=== PATIENT | male | born 1980 | race African-American/Black ===

== ENCOUNTER 2018-03-20 18:20 | Emergency (ER) | payer MEDICARE, MEDICAID, SELFPAY ==
[2018-03-20 18:21] VITALS: BP 109/70; PULSE 87; RESP 16; TEMP 36.3; O2SAT 100; BMI 25.0
[2018-03-20] MEDS: 0.9% Normal Saline 1,000 ML 999 ML IV (18:42)
[2018-03-20] MEDS: DiphenhydrAMINE 50 MG/ML Syringe 25 MG IV (18:42)
[2018-03-20] MEDS: proCHLORPERazine 10 MG/2 ML Vial IV (18:42)
[2018-03-20] MEDS: Ketorolac 30 MG/ML Syringe IV (18:42)
--- NOTE | 2018-03-20 19:53 | ED.DCSUM_ITS ---
- ER Visit Summary Date of Service: 03/20/18 Chief Complaint: Migraine headache History of Present Illness: The patient is a 37 M presenting for evaluation secondary to headache. Patient states that he has been having a significant amount of increased stress recently. Patient states that he has stress induced migraines. Patient reports that around noon he had a gradual onset of a migraine headache. He describes this as a generalized throbbing seems to be worse with exposure to light and sound and has been associated with an aura and nausea and vomiting. Patient denies any head trauma. Denies any recent fevers neck stiffness or skin rashes. Review of systems otherwise negative. Physical Examination: Vital signs: Within normal limits General: Well-nourished well-developed no acute distress Head: Normocephalic atraumatic, no temporal artery tenderness or vesicular rash noted. No sinus tenderness to percussion. Eyes: PERRLA, EOMI. Direct funduscopy limited secondary to photophobia Neck: Supple, no lymphadenopathy, no JVD no meningismus. Negative Brudzinski, Kernig, jolt, and heel strike Cardiovascular: Heart regular rate and rhythm no murmurs Respiratory: Lung sounds clear to auscultation bilaterally no respiratory distress Abdomen: Soft, nontender Extremities: Nontender, no edema Skin: Normal color, no rash, no evidence of petechia Neuro: Alert and oriented ?4, cranial nerves II through XII intact, normal strength, sensation Test Results: None indicated Emergency Department Course and Treatment: Patient presented for evaluation secondary to headache. He has no symptoms that would be concerning for infection, meningitis, subarachnoid hemorrhage, or other significant etiology that would require workup. Patient was treated with Benadryl Compazine and Toradol repeat evaluation in 1950 showed resolution. I believe he safely can be discharged. Disposition: Discharge Impression: 1. Migraine headache without status migrainosus, with aura, not intractable This note was generated with [employer] dictation software. It may contain incorrect words, spelling, and punctuation that were not noted in review of the chart prior to signing ED Disposition - Plan for ED Patient: Disposition: Home or Assisted Living Chief Complaint: Headache Diagnosis: Migraine Instructions: ED Headache Migraine Additional Instructions: Follow-up with your primary care physician
[2018-03-20 20:06] VITALS: BP 110/80; PULSE 81; RESP 18; O2SAT 98
== END 2018-03-20 20:07 | disposition home or self-care (01) ==
PROVIDERS: Emergency Provider Emergency Medicine
DX: G43.109 Migraine with aura, not intractable, without status migrainosus (principal)
CPT/HCPCS: 96361; 96374; 96375; 99283; J7030

== ENCOUNTER 2018-11-04 20:11 | Emergency (ER) | payer SELFPAY ==
[2018-09-08 08:44] VITALS: BMI 23.8
[2018-11-04 20:12] VITALS: BP 117/98; PULSE 102; RESP 19; TEMP 36.2; O2SAT 100; BMI 21.5
[2018-11-04] MEDS: 0.9% Normal Saline 1,000 ML 999 ML IV (21:58)
[2018-11-04] MEDS: Metoclopramide 10 MG/2 ML Vial IV (21:59)
[2018-11-04] MEDS: Ketorolac 30 MG/ML Syringe IV (21:59)
[2018-11-04] MEDS: DiphenhydrAMINE 50 MG/ML Syringe 25 MG IV (21:59)
--- NOTE | 2018-11-05 00:05 | ED.VISSUMM ---
- ER Visit Summary Date of Service: 11/05/18 Chief Complaint: [] History of Present Illness: The patient is a 37 M [] Physical Examination: [] Test Results: [] Emergency Department Course and Treatment: [] Treatment Plan: [] Disposition: [] Impression: [] This note was generated with [employer] dictation software. It may contain incorrect words, spelling, and punctuation that were not noted in review of the chart prior to signing ED Disposition - Plan for ED Patient: Instructions: ED Headache Migraine Referrals: Jenn Vincent MD [Primary Care Provider] -
[2018-11-05 00:06] VITALS: BP 136/82; PULSE 88; PULSE 89; RESP 16; O2SAT 100; O2SAT 98
== END 2018-11-05 00:17 | disposition home or self-care (01) ==
PROVIDERS: Emergency Provider Emergency Medicine; Family Provider Internal Medicine; PCP Internal Medicine
DX: G43.909 Migraine, unspecified, not intractable, without status migrainosus (principal)
CPT/HCPCS: 96361; 96374; 96375; 99283; J7030; A4216

== ENCOUNTER 2020-06-23 19:37 | Emergency (ER) | payer MEDICARE, MEDICAID, SELFPAY ==
[2020-06-23 19:38] VITALS: BP 110/83; PULSE 99; RESP 17; TEMP 38.8; O2SAT 100; BMI 22.3
[2020-06-23 21:00] VITALS: BP 120/77; PULSE 82; RESP 18; TEMP 38.3; O2SAT 98
[2020-06-23 22:00] VITALS: BP 119/77; PULSE 83; RESP 17; TEMP 38.2; O2SAT 98
--- NOTE | 2020-06-23 22:06 | EKG12_ITS ---
Test Reason : FEVER Blood Pressure : / mmHG Vent. Rate : 079 BPM Atrial Rate : 079 BPM P-R Int : 154 ms QRS Dur : 104 ms QT Int : 368 ms P-R-T Axes : 035 023 023 degrees QTc Int : 421 ms Normal sinus rhythm Normal ECG Confirmed by LEILA GREEN, MISTY ([id number]), scientific editor BLANK VITALE ([id number]) on 07/07/2020 9:38:53 A M Referred By: BALJIT Confirmed By:JANIE DEE MD
[2020-06-23] MEDS: 0.9% Normal Saline 1,000 ML 1000 ML IV (22:09)
[2020-06-23 22:27] LABS: Absolute Lymphocyte Count 0.53 X10^3/uL (0.83-4.51); Absolute Neutrophil Count 3.7 X10^3/uL (2.0-7.7); Basophil# 0.03 X10^3/uL; Basophil% 0.6 % (0-1); Eosinophil# 0.13 X10^3/uL; Eosinophils% 2.6 % (0-5); Hematocrit 46.2 % (40-54); Hemoglobin 15.4 g/dL (13.0-16.5); Lymphocyte # 0.53 X10^3/ul (4.0); Lymphocyte % 10.7 % (19-41); Mean Corp Hgb Conc 33.3 g/dL (32-36); Mean Corpuscular Hgb 32.4 pg (27.0-32.0); Mean Corpuscular Volume 97.3 fL (80-94); Mean Platelet Vol. 10.4 fl (6.2-12.0); Monocyte# 0.57 X10^3/uL; Monocyte% 11.5 % (0-10); NRBC Flagged by Analyzer 0 % (0-5); Neutrophil # 3.69 X10^3/uL (2.7-7.7); Neutrophil % 74.4 % (47-70); POSITIVE DIFFERENTIAL YES; Platelet Count 180 K/mm3 (150-450); RBC Distribution Width CV 12.7 % (11.6-14.6); RBC Distribution Width SD 45.4 fl (35.1-43.9); Red Blood Count 4.75 M/mm3 (4.6-6.2)
[2020-06-23 22:33] LABS: Differential Indicated SCAN CRITERIA MET
--- NOTE | 2020-06-23 22:37 | RAD_ITS ---
STUDY: X-RAY CHEST REASON FOR EXAM: Male, 39 years old. COUGH,SOB, FEVER, CHILLS, NAUSEA TECHNIQUE: 1 view COMPARISON: Prior chest radiograph 05/08/2017 FINDINGS: The lungs are clear and expanded. There is no demonstrated pleural abnormality. Normal size heart. Normal mediastinum and raffaele. Normal visualized pulmonary arteries. Normal visualized aortic arch and descending thoracic aorta. Normal visualized thoracic spine. Normal visualized ribs, clavicles, and shoulders. Increased colonic bowel gas in the [id number]. RAD/Chest 1 View (Portable) IMPRESSION: Normal x-ray examination of the chest. Increased colonic bowel gas in the [id number]. Electronically Signed: Michelle Peralta MD at 22:49 EDT , Service support ,
[2020-06-23 22:43] LABS: ALB/GLOB Ratio 1.3 RATIO (0.9-2.4); AST(SGOT) 16 U/L (15-37); Alanine Aminotransfer ALT/SGPT 18 U/L (16-61); Albumin, Serum 4.1 g/dL (3.2-5.0); Alkaline Phosphatase 48 U/L (45-117); Anion Gap 5 (5-15); BUN 12 mg/dL (7-18); BUN/Creat Ratio 11.2 RATIO (10-20); Calcium,Total 8.7 mg/dL (8.5-10.1); Chloride 108 mmol/L (98-107); Creatinine, Serum 1.07 mg/dL (0.70-1.30); EST Glomerular Filtration Rate 81 mL/min (>60); Est Glom Filt Rate - Afr Amer 98 mL/min (>60); Estimated Creatinine Clearance 88.15 ml/min; Globulin 3.1 g/dL (2.2-4.2); Glucose 90 mg/dL (74-106); Protein, Total 7.2 g/dL (6.4-8.2); Sodium Level 142 mmol/L (136-145)
[2020-06-23 22:46] LABS: CPK Total, Creatine Kinase 122 U/L (39-308)
[2020-06-23 22:50] LABS: Bacteria 0 SEEN /hpf (None Seen); Mucous, Urine 0 SEEN /hpf (<or=2+); Red Blood Cells-Urine 0 SEEN /hpf (0-5)
[2020-06-23 22:53] LABS: Color, Urine Yellow (Yellow); Glucose, Dipstick Normal (Normal); Leukocyte Esterase-Dipstick Negative /ul (Negative); Nitrite-Dipstick Negative (Negative); Occult Blood-Urine Negative /ul (Negative); Protein-Dipstick 30 mg/dl (Negative); Specific Gravity, Urine 1.015 (1.002-1.030); Urine Bilirubin Dipstick Negative (Negative); Urine Clarity Sl. Cloudy (Clear); Urine Urobilinogen 1 mg/dl (Normal)
[2020-06-23 22:55] LABS: Ketone-Dipstick 150 mg/dl (Negative)
[2020-06-23 22:59] LABS: Squamous Epithelial Cells - UA 0-5 SEEN /hpf (0-5); White Blood Cells 0-5 SEEN /hpf (0-5)
[2020-06-23 23:00] VITALS: BP 111/73; PULSE 81; PULSE 84; RESP 15; RESP 17; TEMP 37.9; O2SAT 99
[2020-06-23 23:52] LABS: Differential Comment SCANNED
[2020-06-24] VITALS: BP 116/79; PULSE 78; RESP 24; TEMP 37.7; O2SAT 97
[2020-06-24 00:48] VITALS: BP 118/77; PULSE 83; RESP 20; O2SAT 98
--- NOTE | 2020-06-24 00:51 | ED.VIS.GEN ---
History of Present Illness Chief Complaint: General Illness Informant: Patient Onset: Today Context: Gradual Onset Timing: Continuous Narrative: She is a 39-year-old male presenting with viral illness symptoms. 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 He is not been exposed to coronavirus as far as he is aware. Today after he got off work around noon he did start to feel off. He developed headache, chills, nausea and fever. His temperature was 101.7. Patient also had some mild myalgias/low back pain. 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 He has a chronic cough which is unchanged and does not feel short of breath anymore than normal. He does state he has some slight chest tightness however. He did not have a bowel movement today which is abnormal for him as he normally goes every day. He denies any ear pain, dizziness or sore throat. He did not take any medications prior to arrival. He denies any rash or urinary symptoms. No other complaints at this time. Past Medical History - Allergies and Home Meds Allergies/Adverse Reactions: Allergies adhesive Allergy (Verified 06/23/20 19:40) Rash Opioids - Morphine Analogues Adverse Reaction (Verified 06/23/20 19:40) Other Primary Care Physician: Florin Khoury MD [Primary Care Provider] - Past Medical History: - - Horseshoe kidney, history of small bowel obstruction as a child Surgical History: - - abdominal surgery, cleft pallet repair Lives: Spouse/ Significant Other Smoking Status: Current every day smoker Review of Systems General: Reports: Chills, Fever, Malaise. Denies: Sweats Eyes: Denies: Visual changes - bilaterally, Diplopia ENT: Denies: Rhinorrhea, Sore throat Cardiovascular: Denies: Chest pain, Palpitations Respiratory: Reports: Cough. Denies: Dyspnea, Dyspnea on exertion Gastrointestinal: Reports: Nausea. Denies: Abdominal pain, Vomiting, Diarrhea, Melena, Hematochezia Genitourinary: Denies: Dysuria, Hematuria, Frequency Musculoskeletal: Reports: Myalgias, Back pain. Denies: Extremity Pain Skin: Denies: Rash, Wounds Neurological: Reports: Headache. Denies: Weakness, Numbness Physical Exam Vital Signs/Narrative: Vital Signs Temp Pulse Resp BP Pulse Ox 06/24/20 00:48 83 20 H 118/77 98 06/24/20 00:00 100 F H 78 24 H 116/79 97 06/23/20 23:00 100.2 F H 81 15 111/73 99 06/23/20 22:00 100.8 F H 83 17 119/77 98 06/23/20 21:00 101 F H 82 18 120/77 98 Inital Vital Signs reviewed: Yes General: Well nourished, Well developed, No Acute Distress Head: Normocephalic, Atraumatic Eyes: Perrl, EOMI ENT: Moist mucous membranes, No rhinorrhea, Nasal congestion, - - Cerumen impaction of the right ear. Mild erythema with no fluid level or bulging of the left hepatic membrane. Negative for: Sinus tenderness Neck: Supple, Nontender Cardiovascular: Regular rate, Regular rhythm, No murmurs Respiratory: No distress, CTA bilaterally, Chest nontender. Negative for: Wheezing, Diminished, Decreased Air Movement Abdomen: Soft, Nontender, Nondistended, Normal bowel sounds. Negative for: Guarding, Rebound tenderness Back: Nontender, Normal Inspection. Negative for: CVA tenderness, Spinal tenderness Extremities: Nontender, No edema Skin: Normal color, No rash Neurological: Alert, Oriented x3, Cranial nerves II-XII grossly intact, Normal Strength, Normal Sensation Psychological: Normal affect, Normal Mood Diagnostic/Tx/Re-eval Chest X-Ray - ED: 1 View, Read by ED Physician, Read by Radiologist, No Acute Disease Clinical Impression(s) from Imaging Studies Chest X-Ray 06/23/20 22:37 IMPRESSION: Normal x-ray examination of the chest. Increased colonic bowel gas in the [id number]. Electronically Signed: Michelle Peralta MD at 22:49 EDT , Service support , Laboratory Data 06/23/20 06/23/20 06/23/20 21:30 21:30 21:30 WBC 5.0 RBC 4.75 Hgb 15.4 Hct 46.2 MCV 97.3 H MCH 32.4 H MCHC 33.3 RDW Std Deviation 45.4 H RDW Coeff of [place] 12.7 Plt Count 180 MPV 10.4 Immature Gran % (Auto) 0.200 Neut % (Auto) 74.4 H Lymph % (Auto) 10.7 L Stokes % (Auto) 11.5 H Eos % (Auto) 2.6 Baso % (Auto) 0.6 Absolute Neuts (auto) 3.7 Absolute Lymphs (auto) 0.53 L Nucleated RBC % 0 Differential Comment SCANNED Sodium 142 Potassium 4.0 Chloride 108 H Carbon Dioxide 29.0 Anion Gap 5 BUN 12 Creatinine 1.07 Estim Creat Clear Calc 88.15 Est GFR (MDRD) Af Amer 98 Est GFR (MDRD) Non-Af 81 BUN/Creatinine Ratio 11.2 Glucose 90 Calcium 8.7 Total Bilirubin 0.50 AST 16 ALT 18 Alkaline Phosphatase 48 Total Creatine Kinase 122 Troponin I < 0.015 Total Protein 7.2 Albumin 4.1 Globulin 3.1 Albumin/Globulin Ratio 1.3 Urine Color Urine Clarity Urine pH Ur Specific [place] Urine Protein Urine Glucose (UA) Urine Ketones Urine Occult Blood Urine Nitrite Urine Bilirubin Urine Urobilinogen Ur Leukocyte Esterase Urine RBC Urine WBC Ur Squamous Epith Cells Urine Bacteria Urine Mucus 06/23/20 22:34 WBC RBC Hgb Hct MCV MCH MCHC RDW Std Deviation RDW Coeff of [place] Plt Count MPV Immature Gran % (Auto) Neut % (Auto) Lymph % (Auto) Stokes % (Auto) Eos % (Auto) Baso % (Auto) Absolute Neuts (auto) Absolute Lymphs (auto) Nucleated RBC % Differential Comment Sodium Potassium Chloride Carbon Dioxide Anion Gap BUN Creatinine Estim Creat Clear Calc Est GFR (MDRD) Af Amer Est GFR (MDRD) Non-Af BUN/Creatinine Ratio Glucose Calcium Total Bilirubin AST ALT Alkaline Phosphatase Total Creatine Kinase Troponin I Total Protein Albumin Globulin Albumin/Globulin Ratio Urine Color Yellow Urine Clarity Sl. Cloudy Urine pH 6.0 Ur Specific [place] 1.015 Urine Protein 30 H Urine Glucose (UA) Normal Urine Ketones 150 H Urine Occult Blood Negative Urine Nitrite Negative Urine Bilirubin Negative Urine Urobilinogen 1 H Ur Leukocyte Esterase Negative Urine RBC 0 SEEN Urine WBC 0-5 SEEN Ur Squamous Epith Cells 0-5 SEEN Urine Bacteria 0 SEEN Urine Mucus 0 SEEN - Rhythm Strip Rhythm Strip: Sinus Rhythm Rate: 79 Ectopy: None - EKG Initial EKG Interpretation: Sinus Rhythm, - - Normal sinus rhythm at a rate of 79 Normal axis Normal intervals Normal ST segments - Medical Decision Making Evaluated for fever, chills, nausea and headache. He appears nontoxic and in no acute distress. He is slightly febrile in the ER. He is given IV fluids in the ER. Breath sounds are clear. His work-up is largely unremarkable with no signs of acute infection. He does have ketones in his urine consistent with dehydration. 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 Patient be tested outpatient. However, patient is well-appearing and I think he is a good candidate for outpatient/symptomatic treatment. Patient is agreeable with this. He is given a work note stating that he should not work and should quarantine until his test is negative. Patient verbalizes agreement understanding this plan. He is discharged with return precautions. ED Disposition - Plan for ED Patient: Disposition: Home or Assisted Living Diagnosis: Suspected COVID-19 virus infection Instructions: ED Viral Syndrome Referrals: Florin Khoury MD [Primary Care Provider] - Additional Instructions: Alternate Tylenol and ibuprofen for body aches and fevers. Drink plenty of fluids. Return the emergency room with any severe symptoms such as difficulty breathing or shortness of breath. Quarantine at home to avoid spread to others as possible you could have come in contact with coronavirus.
== END 2020-06-24 01:09 | disposition home or self-care (01) ==
PROVIDERS: Emergency Provider Emergency Medicine; PCP Family Medicine
DX: Z20.828 Contact with and (suspected) exposure to other viral communicable diseases (principal); F17.200 Nicotine dependence, unspecified, uncomplicated
CPT/HCPCS: 71045; 80053; 81001; 82550; 84484; 85025; 87635; 93005; 99282; 99285; J7030; A4216; U0003

== ENCOUNTER → 2020-08-19 13:53 | Outpatient (CLI) | payer MEDICARE, MEDICAID, SELFPAY ==
[2020-08-19 18:17] LABS: Absolute Lymphocyte Count 1.54 X10^3/uL (0.83-4.51); Basophil# 0.03 X10^3/uL; Basophil% 0.4 % (0-1); Eosinophil# 0.23 X10^3/uL; Eosinophils% 3.2 % (0-5); Hematocrit 46.3 % (40-54); Hemoglobin 15.3 g/dL (13.0-16.5); Lymphocyte # 1.54 X10^3/ul (4.0); Lymphocyte % 21.2 % (19-41); Mean Corpuscular Hgb 31.7 pg (27.0-32.0); Mean Corpuscular Volume 96.1 fL (80-94); Mean Platelet Vol. 10.8 fl (6.2-12.0); Monocyte% 6.9 % (0-10); NRBC Flagged by Analyzer 0 % (0-5); Neutrophil # 4.96 X10^3/uL (2.7-7.7); Neutrophil % 68.2 % (47-70); Platelet Count 204 K/mm3 (150-450); RBC Distribution Width CV 12.8 % (11.6-14.6); RBC Distribution Width SD 45.4 fl (35.1-43.9); Red Blood Count 4.82 M/mm3 (4.6-6.2); White Blood Count 7.3 K/mm3 (4.4-11.0)
[2020-08-19 18:37] LABS: ALB/GLOB Ratio 1.3 RATIO (0.9-2.4); AST(SGOT) 16 U/L (15-37); Alanine Aminotransfer ALT/SGPT 19 U/L (16-61); Albumin, Serum 4.3 g/dL (3.2-5.0); Alkaline Phosphatase 49 U/L (45-117); Anion Gap 6 (5-15); BUN 19 mg/dL (7-18); BUN/Creat Ratio 18.1 RATIO (10-20); Calcium,Total 8.8 mg/dL (8.5-10.1); Chloride 108 mmol/L (98-107); Cholesterol 159 mg/dL (200); Creatinine, Serum 1.05 mg/dL (0.70-1.30); EST Glomerular Filtration Rate 83 mL/min (>60); Est Glom Filt Rate - Afr Amer 100 mL/min (>60); Globulin 3.3 g/dL (2.2-4.2); Glucose 81 mg/dL (74-106); High Density Lipoprotein 51 mg/dL; Potassium 3.8 mmol/L (3.5-5.1); Protein, Total 7.6 g/dL (6.4-8.2); Sodium Level 138 mmol/L (136-145); Triglycerides 60 mg/dL; Very Low Density Lipoprotein 12 mg/dL (5-40)
== END ==
PROVIDERS: PCP Family Medicine; Referring Provider Family Medicine; Visit Provider Family Medicine
DX: Z13.220 Encounter for screening for lipoid disorders (principal); Z13.1 Encounter for screening for diabetes mellitus; F17.200 Nicotine dependence, unspecified, uncomplicated; Z79.899 Other long term (current) drug therapy
CPT/HCPCS: 36415; 80053; 80061; 85025

== ENCOUNTER 2021-10-18 20:00 | Emergency (ER) | payer MEDICARE, SELFPAY ==
[2021-10-18 20:01] VITALS: BP 122/86; PULSE 78; RESP 16; TEMP 36.2; O2SAT 98; BMI 23.2
--- NOTE | 2021-10-18 20:10 | EDS_ITS ---
HPI History of Present Illness Chief Complaint: Headache Informant: patient Onset/Context/Timing Onset: Today Context: Gradual Current Severity: Moderate Maximum Severity: Moderate Associated Symptoms/Injury Associated Symptoms: Positive for Nausea Narrative Narrative: Patient presents secondary to migraine headache. Headache came on gradually this afternoon. Headache is located in the frontal region. He has had nausea along with light and sound sensitivity. No recent URI symptoms. No recent head injury. Patient did try Tylenol ibuprofen prior to arrival without significant improvement. PFSH PFSH Medical History Alcohol abuse Depression with anxiety Heart murmur History of cleft palate Lab test negative for COVID-19 virus Migraine Recovering alcoholic Home Medications NK 11/04/18 [History Last Taken Unknown] Allergy/AdvReac Type Severity Reaction Status Date / Time adhesive Allergy Rash Verified 10/18/21 20:01 Opioids - Morphine Analogues AdvReac Other Verified 10/18/21 20:01 Family History Father Alcoholism Mother Alcoholism Cancer lung Grandfather Alcoholism Grandmother Alcoholism Surgical History History of intestinal surgery History of placement of ear tubes Social History Smoking Status: Current every day smoker tobacco type: cigarettes Tobacco: How many years used: 12 alcohol intake: never substance use type: does not use what type of physical activity do you participate in: weight training ROS ROS ED Constitutional Constitutional ED: Denies chills or fever(s) Eyes Eyes: Denies change in vision ENT ENT ED: Denies sore throat Cardiovascular Cardiovascular: Denies chest pain Respiratory/Chest Respiratory/Chest: Denies cough or dyspnea Gastrointestinal Gastrointestinal: Denies abdominal pain, diarrhea, nausea or vomiting Genitourinary Genitourinary ED: Denies dysuria Musculoskeletal Musculoskeletal: Reports other Details: Popping sensation in neck ; Denies back pain Integumentary Denies rash Neurologic Neurologic: Reports headache(s); Denies paresthesias or weakness Allergic/Immunologic Allergic/Immunologic ED: Denies urticaria EXAM Physical Exam Const Vital Signs: 10/18/21 20:01 Temperature 97.2 F L Temperature Source Temporal Pulse Rate 78 Respiratory Rate 16 Blood Pressure 122/86 H Blood Pressure Mean 98 Pulse Ox 98 Oxygen Delivery Method Room Air Positive well nourished and well developed General Appearance ED: well developed HEENT Reports normocephalic atraumatic Eyes PERRL and EOMs intact bilaterally Neck supple and no meningeal signs Resp normal respiratory effort and clear to auscultation bilaterally Cardio regular rate and regular rhythm GI non-tender Palpation: soft Extremity normal to inspection Neuro oriented x3 and no sensory deficits noted Sensorium / Orientation: awake and alert Motor Exam: strength 5/5 throughout Psych mental status grossly normal Skin Lesions: no lesions Rashes: no rashes MDM MDM MDM Narrative Medical decision making narrative: Patient was given Toradol, Reglan, Benadryl, and IV fluids. Treatment and Re-Evaluation Comments:: Repeat evaluation patient reports headache is much improved. He is comfortable with discharge to home. Return instructions provided. Discharge Plan Triage Chief Complaint: Headache ED Provider: Chula Peguero Dx/Rx/DC Orders Clinical Impression: Migraine Instructions: ED, Migraine (Classical) Prescriptions: No Action NK RF: 0 Primary Care Provider: Cira Marin NP Referrals: Cira Marin NP, [employer] G[employer] FLOOR SUPERVISOR-C [Primary Care Provider] - As Needed Disposition Disposition: Home, Self Care
[2021-10-18] MEDS: 0.9% Normal Saline 1,000 ML 999 ML IV (20:30)
[2021-10-18] MEDS: Ketorolac 30 MG/ML Syringe IV (20:30)
[2021-10-18] MEDS: Metoclopramide 10 MG/2 ML Vial IV (20:30)
[2021-10-18] MEDS: DiphenhydrAMINE 50 MG/ML Syringe 25 MG IV (20:31)
== END 2021-10-18 21:31 | disposition home or self-care (01) ==
PROVIDERS: Emergency Provider Emergency Medicine; PCP Nurse Practitioner Family; Visit Provider Emergency Medicine
DX: G43.909 Migraine, unspecified, not intractable, without status migrainosus (principal); F17.210 Nicotine dependence, cigarettes, uncomplicated
CPT/HCPCS: 96374; 96375; 99283; J7030; A4216

== ENCOUNTER 2022-01-05 19:35 | Emergency (ER) | payer MEDICARE, SELFPAY ==
[2022-01-05 19:36] VITALS: BP 126/81; PULSE 86; RESP 16; TEMP 36.6; O2SAT 97; BMI 21.9
--- NOTE | 2022-01-05 19:49 | EDS_ITS ---
HPI History of Present Illness Chief Complaint: Headache Informant: patient Narrative Narrative: 41-year-old male presenting to the emergency department the chief complaint of headache vomiting and anxiety. Patient states that he went to [facility] today and afterwards developed a generalized headache associated with nausea vomiting. He is also makes mention of some right-sided neck pain which makes a click when he moves it. He states his doctor does know about this and felt that it was muscular. He states that he feels very anxious that something else is going on. He denies any new medications. No fevers. He feels near syncopal. PFSH PFSH Medical History Alcohol abuse Depression with anxiety Heart murmur History of cleft palate Lab test negative for COVID-19 virus Migraine Recovering alcoholic Home Medications bupropion HCl [Wellbutrin XL] 150 mg PO DAILY 01/05/22 [History Last Taken Unknown] ondansetron 4 mg PO Q6H PRN PRN #15 tab 01/05/22 [Rx Last Taken Unknown] Allergy/AdvReac Type Severity Reaction Status Date / Time adhesive Allergy Rash Verified 01/05/22 19:36 Opioids - Morphine Analogues AdvReac Other Verified 01/05/22 19:36 Family History Father Alcoholism Mother Alcoholism Cancer lung Grandfather Alcoholism Grandmother Alcoholism Surgical History History of intestinal surgery History of placement of ear tubes Social History Smoking Status: Current every day smoker tobacco type: cigarettes Tobacco: How many years used: 12 alcohol intake: never substance use type: does not use what type of physical activity do you participate in: weight training ROS ROS ED Constitutional Constitutional ED: Denies chills, fever(s) or weight loss Eyes Eyes: Denies change in vision or diplopia ENT ENT ED: Denies ear pain, rhinorrhea or sore throat Cardiovascular Cardiovascular: Denies chest pain, orthopnea, palpitations or racing heartbeat Respiratory/Chest Respiratory/Chest: Denies cough, dyspnea or orthopnea Gastrointestinal Gastrointestinal: Reports nausea and vomiting; Denies abdominal pain or diarrhea Genitourinary Genitourinary ED: Denies dysuria, hematuria or urinary frequency Musculoskeletal Musculoskeletal: Reports neck pain; Denies arthralgias or myalgias Integumentary Denies abscess or rash Neurologic Neurologic: Reports headache(s); Denies weakness Psychiatric Psychiatric: Denies anxiety, depression, suicidal ideation or suicidal thoughts Endocrine Endocrinology: Denies polydipsia, polyphagia or polyuria Allergic/Immunologic Allergic/Immunologic ED: Denies mouth swelling, tongue swelling or urticaria EXAM Physical Exam Const Vital Signs: 01/05/22 19:36 Temperature 97.8 F Temperature Source Temporal Pulse Rate 86 Respiratory Rate 16 Blood Pressure 126/81 H Blood Pressure Mean 96 Pulse Ox 97 Oxygen Delivery Method Room Air Positive well nourished and well developed General Appearance ED: well developed HEENT Reports normocephalic, head/scalp atraumatic, TM's clear and moist mucous membranes atraumatic Tympanic Membrane ED: Yes TM's clear Eyes PERRL and EOMs intact bilaterally Neck no lymphadenopathy, supple, no meningeal signs and no JVD Resp normal respiratory effort and clear to auscultation bilaterally Cardio regular rate, regular rhythm and no murmurs GI normal to inspection, nondistended, normoactive bowel sounds and non-tender Palpation: soft Back/Spine no CVA tenderness and normal ROM Extremity normal to inspection General Extremety ED: Negative for edema General Extremity: Negative for edema Neuro oriented x3 and CN's II-XII intact bilaterally Sensorium / Orientation: alert Motor Exam: strength 5/5 throughout Psych mental status grossly normal Mood & Affect: Negative for depressed or tearful Skin no rashes or lesions noted and no wounds MDM MDM MDM Narrative Medical decision making narrative: Patient received IV fluids Toradol Reglan and Benadryl. Repeat examination finds his headache is anxiety had his nausea and vomiting to be significantly improved. I will call in some Zofran to his pharmacy. Return if worsening or concerns Discharge Plan Triage Chief Complaint: Headache ED Provider: Shashi Mcneal Dx/Rx/DC Orders Clinical Impression: Migraine, Vomiting Instructions: ED, Migraine (Classical) Prescriptions: New ondansetron [ondansetron] 4 MG tablet 4 mg PO Q6H PRN PRN (Reason: Nausea) Qty: 15 RF: 0 No Action bupropion HCl [Wellbutrin XL] 150 mg Tablet Extended Release 24 Hr 150 mg PO DAILY RF: 0 Primary Care Provider: Cira Marin RECOVERY AGENT Referrals: Cira Marin NP, RECOVERY AGENT-C [Primary Care Provider] - As Needed Disposition Disposition: Home, Self Care
[2022-01-05] MEDS: 0.9% Normal Saline 1,000 ML 999 ML IV (19:57)
[2022-01-05] MEDS: DiphenhydrAMINE 50 MG/ML Syringe IV (19:58)
[2022-01-05] MEDS: Metoclopramide 10 MG/2 ML Vial IV (19:59)
[2022-01-05] MEDS: Ketorolac 30 MG/ML Syringe IV (19:59)
[2022-01-05 20:54] VITALS: BP 122/60; PULSE 78; RESP 18
== END 2022-01-05 20:55 | disposition home or self-care (01) ==
PROVIDERS: Emergency Provider Emergency Medicine; PCP Nurse Practitioner Family; Visit Provider Emergency Medicine
DX: G43.909 Migraine, unspecified, not intractable, without status migrainosus (principal); R11.10 Vomiting, unspecified; F17.210 Nicotine dependence, cigarettes, uncomplicated; F32.A Depression, unspecified; F41.9 Anxiety disorder, unspecified; Z79.899 Other long term (current) drug therapy
CPT/HCPCS: 96374; 96375; 99282; J7030; A4216

== ENCOUNTER 2022-02-09 20:10 | Emergency (ER) | payer MEDICARE, SELFPAY ==
[2022-02-09 20:11] VITALS: BP 109/83; PULSE 86; RESP 15; TEMP 36.2; O2SAT 94; BMI 23.7
--- NOTE | 2022-02-09 20:35 | EX.ED.GENINJ ---
HPI History of Present Illness Chief Complaint: Other, Pain/Inj Informant: patient Narrative Narrative: Patient grabbed a piece of furniture and got a nail that poked into his right thenar eminence this evening. He states he just is out up-to-date on his tetanus. He has no pain. There is no significant bleeding. No numbness tingling. PFSH PFSH Medical History Alcohol abuse Depression with anxiety Heart murmur History of cleft palate Lab test negative for COVID-19 virus Migraine Recovering alcoholic Home Medications bupropion HCl [Wellbutrin XL] 150 mg PO DAILY 01/05/22 [History Last Taken Unknown] ondansetron 4 mg PO Q6H PRN PRN #15 tab 01/05/22 [Rx Last Taken Unknown] Allergy/AdvReac Type Severity Reaction Status Date / Time adhesive Allergy Rash Verified 02/09/22 20:14 Opioids - Morphine Analogues AdvReac Other Verified 02/09/22 20:14 Family History Father Alcoholism Mother Alcoholism Cancer lung Grandfather Alcoholism Grandmother Alcoholism Surgical History History of intestinal surgery History of placement of ear tubes Social History Smoking Status: Current every day smoker tobacco type: cigarettes Tobacco: How many years used: 12 alcohol intake: never substance use type: does not use what type of physical activity do you participate in: weight training ROS ROS ED Constitutional Constitutional ED: Denies chills or fever(s) Gastrointestinal Gastrointestinal: Denies nausea or vomiting Musculoskeletal Musculoskeletal: Reports other Details: See history of present illness regarding small nail puncture right hand Integumentary Reports Abrasions and other Details: See history of present illness Neurologic Neurologic: Denies paresthesias or weakness Hematologic/Lymphatic Hematologic/Lymphatic: Denies easy bleeding or easy bruising Allergic/Immunologic Allergic/Immunologic ED: Denies urticaria EXAM Physical Exam Const Vital Signs: 02/09/22 20:11 Temperature 97.2 F L Temperature Source Temporal Pulse Rate 86 Respiratory Rate 15 Blood Pressure 109/83 H Blood Pressure Mean 91 Pulse Ox 94 Oxygen Delivery Method Room Air Positive well nourished and well developed General Appearance ED: well developed HEENT atraumatic Resp normal respiratory effort Extremity Extremity Narrative: Patient has a small red dot in the thenar eminence. Nowhere near the joint. There is no bleeding. No swelling. No erythema. No tenderness. No pain with range of motion. Neuro oriented x3 Sensorium / Orientation: alert Skin Skin Narrative: See above. MDM MDM MDM Narrative Medical decision making narrative: Patient states that this was the tip of the nail poking out. There is no foreign material. I do not think he needs antibiotics. He will have his tetanus updated. We did discuss reasons that would prompt returning. We discussed signs of infection. Discharge Plan Triage Chief Complaint: Other, Pain/Inj ED Provider: Rene Welch Dx/Rx/DC Orders Clinical Impression: Nail wound of palm of hand Instructions: ED Puncture Wound (General) Prescriptions: No Action bupropion HCl [Wellbutrin XL] 150 mg Tablet Extended Release 24 Hr 150 mg PO DAILY RF: 0 ondansetron [ondansetron] 4 MG tablet 4 mg PO Q6H PRN PRN (Reason: Nausea) Qty: 15 RF: 0 Primary Care Provider: Cira Marin HIM MANAGER Referrals: Cira Marin NP, HIM MANAGER-C [Primary Care Provider] - As Needed Disposition Disposition: Home, Self Care
[2022-02-09] MEDS: Diphth,Pertuss(Acell),Tet Vac 0.5 ML Vial IM (20:41)
== END 2022-02-09 20:50 | disposition home or self-care (01) ==
PROVIDERS: Emergency Provider Emergency Medicine; PCP Nurse Practitioner Family; Visit Provider Emergency Medicine
DX: S61.401A Unspecified open wound of right hand, initial encounter (principal); F17.210 Nicotine dependence, cigarettes, uncomplicated; Z23 Encounter for immunization; X58.XXXA Exposure to other specified factors, initial encounter
CPT/HCPCS: 90471; 90715; 99282

== ENCOUNTER → 2022-03-22 | Outpatient (CLI) | payer MEDICARE, MEDICAID, SELFPAY ==
[2022-03-22 15:14] LABS: Anion Gap 4 (5-15); BUN 16 mg/dL (7-18); Calcium,Total 8.6 mg/dL (8.5-10.1); Chloride 110 mmol/L (98-107); Cholesterol 145 mg/dL (200); Creatinine, Serum 1.14 mg/dL (0.70-1.30); EST Glomerular Filtration Rate 74 mL/min (>60); Est Glom Filt Rate - Afr Amer 90 mL/min (>60); Glucose 75 mg/dL (74-106); High Density Lipoprotein 46 mg/dL; Potassium 4.3 mmol/L (3.5-5.1); Sodium Level 140 mmol/L (136-145); Triglycerides 52 mg/dL; Very Low Density Lipoprotein 10 mg/dL (5-40)
[2022-03-22 15:17] LABS: Vitamin D,25 Hydroxy 19.8 ng/mL
== END | disposition home or self-care (01) ==
LOC: MFPLAB 13:53
PROVIDERS: PCP Family Medicine; Referring Provider Family Medicine; Visit Provider Family Medicine
DX: Z00.00 Encounter for general adult medical examination without abnormal findings (principal)
CPT/HCPCS: 36415; 80048; 80061; 82306

== ENCOUNTER → 2022-10-08 | Outpatient (CLI) | payer MEDICARE, MEDICAID, SELFPAY ==
--- NOTE | 2022-10-08 15:15 | US_ITS ---
EXAM: US SCROTUM CLINICAL INDICATION: SCROTAL PAIN TECHNIQUE: Realtime ultrasound of the testicles was performed with grayscale and Color Doppler analysis. This report was created using [employer] report [employer] (formerly [employer]) technology. COMPARISON: None. FINDINGS: RIGHT TESTICLE: Unremarkable. Normal in size and echotexture. No focal lesion. Normal blood flow is present. No testicular tumor. Right testicle measures 4.5 x 3.6 x 2.0 cm; left testicle measures 4.0 x 2.7 x 2.1 cm. LEFT TESTICLE: See above. EPIDIDYMIDES: Benign right epididymal head cyst. Normal color Doppler flow pattern in the epididymis. SCROTUM: Bilateral varicoceles. Moderate size right hydrocele. US/Testicular with Arterial Flow IMPRESSION: 1. No testicular tumor, torsion or infection. 2. Bilateral varicoceles. 3. Moderate size right hydrocele. Electronically Signed: Nabil Alvarado MD at 21:57 EST ,
== END | disposition home or self-care (01) ==
PROVIDERS: PCP Family Medicine; Referring Provider Family Medicine; Visit Provider Family Medicine
DX: N50.82 Scrotal pain (principal)
CPT/HCPCS: 76870; 93976

== ENCOUNTER 2022-10-20 19:28 | Emergency (ER) | payer MEDICARE, MEDICAID, SELFPAY ==
[2022-10-20 19:28] VITALS: BP 178/153; PULSE 90; RESP 16; TEMP 36.6; O2SAT 100; BMI 23.4
[2022-10-20] MEDS: Ketorolac 60 MG/2 ML Vial IM (20:45)
[2022-10-20] MEDS: predniSONE 20 MG Tablet 40 MG PO (20:45)
--- NOTE | 2022-10-20 20:45 | EX.ED.DYSGE1 ---
HPI History of Present Illness Chief Complaint: Back Narrative Narrative: Patient is a 41-year-old male with history of anxiety, depression, intermittent back pain. Patient presents the emergency department 4 days of significant right-sided back pain. Patient states that he has had pain that goes down to his right leg. Patient states that sometimes he feels like his right leg is giving out. He denies any history of IV drug abuse, denies any bowel or bladder incontinence, denies any fever or chills. PFSH PFSH Medical History Alcohol abuse Depression with anxiety Heart murmur History of cleft palate Lab test negative for COVID-19 virus Migraine Recovering alcoholic Home Medications bupropion HCl 150 mg 24 hr tablet, extended release (Wellbutrin XL) 150 mg PO DAILY 01/05/22 [History Last Taken Unknown] ondansetron 4 mg disintegrating tablet 4 mg PO Q6H PRN PRN Nausea #15 tabs 01/05/22 [Rx Last Taken Unknown] prednisone 20 mg tablet 40 mg PO DAILY 7 days #14 tabs 10/20/22 [Rx Last Taken Unknown] Allergy/AdvReac Type Severity Reaction Status Date / Time adhesive Allergy Rash Verified 10/20/22 19:30 Opioids - Morphine Analogues AdvReac Other Verified 10/20/22 19:30 Family History Father Alcoholism Mother Alcoholism Cancer lung Grandfather Alcoholism Grandmother Alcoholism Surgical History History of intestinal surgery History of placement of ear tubes Social History Smoking Status: Current every day smoker tobacco type: cigarettes Tobacco: How many years used: 12 alcohol intake: never substance use type: does not use what type of physical activity do you participate in: weight training ROS ROS ED ROS Narrative Constitutional: Negative for fever, chills, weight loss, weakness Eyes: Negative for vision loss, vision change, double vision ENT: Negative for any sore throat, ear pain, congestion Cardiovascular: Negative for any chest pain, tightness, palpitations Respiratory: Negative for any cough, sputum production, hemoptysis, dyspnea, dyspnea on exertion, orthopnea Gastrointestinal: Negative for any abdominal pain, nausea, vomiting, diarrhea, constipation, blood in stool, blood in vomit : Negative for any urinary frequency, dysuria, retention, blood in urine Muscle skeletal: Negative for any muscle joint pain, stiffness, myalgias, arthralgias, neck pain. Positive for right-sided back pain, right leg pain Neurological: Negative for any headache, syncope, numbness or tingling, dizziness Skin: Negative for any rashes, lumps, itching, abrasions, lacerations Psychiatric: Negative for any depression, anxiety, stress, suicidal ideation, homicidal ideation Hematologic: Negative for any easy bruising, excessive bruising, easy bleeding Allergies: Negative for any eczema, hives, rash EXAM Physical Exam Narrative Exam Narrative: Vital signs reviewed. HEET: Head normocephalic atraumatic, TMs clear bilaterally. Posterior pharynx is clear, moist mucous membranes. Nares clear bilaterally. Neck: Supple with no lymphadenopathy or tenderness. No signs of meningismus, negative jolt sign. Cardiac: Regular rate and rhythm no murmurs gallops or rubs, equal peripheral pulses bilaterally. Respiratory: Lungs clear to auscultation bilaterally. No chest tenderness. Abdomen: Soft, nontender, nondistended. No abdominal bruit or pulsatile masses. No hepatosplenomegaly Extremities: No peripheral edema, no signs of gross trauma or deformity. Active full range of motion of all extremities. Neuro: Cranial nerves II through XII intact, no focal neurological deficits. Skin: Clean dry and intact with no rash, purpura, petechiae, vesicles or pustules. Backs/flank: No CVA tenderness, no midline spinal tenderness, no deformity. Patient did have some pain to the right of the lumbar, thoracic spine. This appears to be in spasm. Patient is ambulatory. Patient does have full strength the left leg, patient's right leg slightly less strength 4 out of 5. No neurological focal deficits. Pedal pulses are equal. Psych: Normal mood and affect. No SI, HI or acute psychosis. Const Vital Signs: 10/20/22 19:28 Temperature 97.9 F Temperature Source Temporal Pulse Rate 90 Respiratory Rate 16 Blood Pressure 178/153 H Blood Pressure Mean 161 Pulse Ox 100 Oxygen Delivery Method Room Air Positive well nourished and well developed General Appearance ED: well developed [facility] Treatment and Re-Evaluation Narrative: Patient appears well, patient appears nontoxic, vital signs are stable. Patient presents to the emergency department with complaints of right-sided back pain that radiates on the right leg. Patient's physical examination yields no red flag signs, there is no evidence to suspect any spinal abscess, cauda equina. Patient is examination consistent with muscle skeletal pain, sciatica. Patient be treated with IM Toradol, prednisone. He will be placed on 6 more days of prednisone. He will follow-up closely with his PCP, he and his significant other were given discharge instructions. They were given red flag signs, and instructed to follow-up in 1 week. Patient was given strict return precaution. At this time, patient is happy with the plan of care, patient is stable for discharge Discharge Plan Triage Chief Complaint: Back ED Midlevel Provider: Chevy Rico ED Provider: Uriel Dickey Dx/Rx/DC Orders Clinical Impression: Sciatica Prescriptions: New prednisone 20 mg tablet 40 mg PO DAILY 7 Days Qty: 14 0RF No Action bupropion HCl [Wellbutrin XL] 150 mg Tablet Extended Release 24 Hr 150 mg PO DAILY ondansetron [ondansetron] 4 MG tablet 4 mg PO Q6H PRN PRN (Reason: Nausea) Qty: 15 0RF Primary Care Provider: Chevy Sears Referrals: Chevy Sears MD [Primary Care Provider] - 3-5 Days Activity Restrictions/Additional Instructions: Back pain most likely secondary to inflammation of your sciatica. Prednisone 40 mg a day for inflammation. Motrin Tylenol for pain. Follow-up with your doctor Dr. Chevy Sears this week to ensure this is improving. If is not improving he may need to get an MRI to make sure this is not a pinched nerve from the disc. Return to the emergency department if worsening pain, fever, significant leg weakness or numbness. Also if you develop bowel or bladder incontinence. Those would be signs of a significantly swollen disc. Disposition Disposition: Home, Self Care
== END 2022-10-20 21:10 | disposition home or self-care (01) ==
PROVIDERS: Emergency Provider Emergency Medicine; PCP Family Medicine; Visit Provider Emergency Medicine
DX: M54.30 Sciatica, unspecified side (principal); F17.210 Nicotine dependence, cigarettes, uncomplicated
CPT/HCPCS: 96372; 99283

== ENCOUNTER 2022-12-04 08:00 | Outpatient (RCR) | payer MEDICARE, MEDICAID, SELFPAY ==
--- NOTE | 2022-12-04 09:05 | BH.SGPN.GN ---
Behaviors/Verbalizations/Mental Status: [] Eye contact is good. Motor activity is appropriate. Appearance is casual. Speech is Appropriate. Mood is anxious. Affect is congruent. Thoughts are linear and logical. No evidence of psychosis. Reviewed daily check in sheet and pt reports 4/5 for suicidal thoughts and 2/5 for intent. Pt completed [facility] Screening with therapist prior to group. This appears to be baseline. Client Response/Progress/Benefit: [] Pt participated when prompted. Attentive. Daily symptom tracker notes 5/5 for depression and anxiety as well as 3/5 for self-harm urges. Pt shared with the group that today is his first day in IOP. Shared daily struggles with depression and guilt for past choices. He is 6 years sober however never really learned how to manage myself. He hopes to learn to be vulnerable with the group which he feels will be beneficial to his mental health. Admits that he is very anxious today and wasn't sure what to expect. Group was supportive and provided feedback/suggestions for this first day and week in the program. Will continue in IOP to maintain safety, prevent decompensation, stabilize mood, and increase healthy coping skills. Narrative Note: []
--- NOTE | 2022-12-04 10:10 | BH.SGPN.GN ---
Behaviors/Verbalizations/Mental Status: []Pt alert and oriented, neatly dressed and groomed. Eye contact good. Motor activity appropriate. Speech within normal limits. Affect congruent, mood anxious. Thoughts linear, logical, no signs of hallucinations or delusions. Client Response/Progress/Benefit: []Pt was an active participant in group discussion and experiential activity. Attentive during psychoeducation on possible causes to developing and maintain unhealthy coping skills which can impact mental health. Pt participated in interactive discussion identifying common unhealthy coping skills and pt identified personal ones as minimizing his issues and focusing more on helping others. Able to make connections between experiential activity (folder towers) and importance of having a solid base of internal and external coping skills. Benefited from increased awareness of internal and external coping skills and identifying unhealthy coping skills. First day of IOP tx. Will continue in IOP to prevent decompensation, improve daily functioning, and reduce suicidal ideations. ?? Narrative Note: []
--- NOTE | 2022-12-04 11:10 | BH.SGPN.GN ---
Behaviors/Verbalizations/Mental Status: []Pt alert and oriented, neatly dressed and groomed. Eye contact good. Motor activity appropriate. Speech within normal limits. Affect congruent, mood anxious and depressed. Thoughts linear, logical, no signs of hallucinations or delusions. Client Response/Progress/Benefit: []Pt first day in IOP tx. He responded well to session, taking notes and contributing. Group discussed the different categories of coping skills which included distraction, emotional release, grounding, self-love, and thought challenging.? Pt participated in creating a coping skills ?menu? from the five categories of coping skills. Pt's coping skill menu included: art, journaling,5-senses technique, and opposite action. Pt reported struggling at times with believing the skills will work in the moment and shared wanting to work on challenging this perspective. Appeared to benefit from increasing repertoire of healthy coping skills. Will continue tx to promote continued use of healthy coping skills, reduce distorted thinking patterns, and improve mood stability. Narrative Note: []
--- NOTE | 2022-12-04 12:06 | BH.COMM_ITS ---
Communication Note - Communication with Client Communication Note: Met with pt to complete initial paperwork. No significant changes since pre-admission screening. Completed [place] [facility]icide Screening. High risk, but denies any active intent or plan. Pt reports having thoughts of killing himself daily within the last month, but denies intent. Pt reports he has thoughts of methods, but he would not act on these thoughts because of his nikolay, , and kids. No active SI today. Pt has history of a suicide attempt 19 years ago by hanging and he was found by a friend who saved my life. Pt did not disclose any other attempts since then. No weapons at home. Pt reports ability to maintain safety today and can go to the ER or call crisis if he cannot keep himself safe. Consulted with Dr. Figueroa with plan to admit to IOP level of care with dx of MDD, recurrent, severe without psychosis F 33.2
--- NOTE | 2022-12-04 13:22 | BH.MDN ---
Multi-Disciplinary Note - Note 30-min Individual Time Started:: 12:10 Date: 12/04/22 Purpose of session/treatment goals addressed:: To gather information on pt's current stressors, symptoms, triggers, and tx goals. Another goal was to build rapport and provide emotional support. Eye Contact:: Good Motor Activity:: Appropriate Appearance:: Neat Speech:: Tangential Mood:: Anxious Affect:: Congruent Thoughts:: Racing, No evidence of hallucinations/delusions noted Staff Interventions:: thought challenging, rapport building, strengths perspective, treatment planning, goal setting - gave pt a handout to complete with his ADL goals for IOP Client Response:: Pt responded well to session, open to meeting with therapist. Pt shared his first day went well and he is trying to have a perspective of a new born baby. Pt stated he is going to have to work on his active listening skills, patience, and urge to take a leadership role while in IOP based on his first day experience. Discussed how pt does not have to change who he is to get better, rather he can use his strengths and gain more skills. Pt identified some of his treatment goals for IOP including reducing self-doubt, increase ability to manage distortions, and setting realistic goals. Pt was given a template for a daily functioning checklist and pt is to work on identifying several ADL goals while in IOP. Pt has gained awareness of some of the cognitive distortions including black and white thinking. Pt shared he often uses this kind of thinking and is receptive to challenging this perspective. Risks/Concerns:: Pt admits to having suicidal ideations with thoughts of hanging himself, but denies any plan or intent within the last month. Future oriented and multiple protective factors. Pt has history of one previous attempt about 19 years ago. Pt denies any HI. Progress Toward Goals/Plan:: Pt's first day of IOP tx and pt reports it went well. No progress to document yet. Pt presents with symptoms of depression that have been worsening over the past several months. Pt has history of mood instability, chronic suicidal ideations that have been worsening, and lack of self-esteem. Pt is almost 6 years sober from alcohol, but he is having increased urges to drink which is triggering even more SI. Pt is connected with outpatient counseling through [facility]. Pt will continue IOP tx to prevent decompensation, improve daily functioning, and increase knowledge of healthy coping skills. Time Stopped:: 12:40
--- NOTE | 2022-12-04 13:30 | BH.MTP ---
Master Treatment Plan - Patient Information Program Physician:: Dr. Sidra Hall Primary Therapist:: Janice CASTAÑEDA - Psychiatric Diagnoses Psychiatric Diagnoses:: Bipolar 2 disorder, most recent episode depressed without psychosis F31.81; OCD tendencies; PTSD; Alcohol use disorder in full remission (6 years sober). Diagnosis Code(s):: F 31.81 - Estimated LOS Estimated LOS (in weeks):: 6 Problem/Goal #1 - Problem/Goal #1 Stated Goal:: Pt will increase mood stability by reducing hopelessness, worthlessness, guilt, and suicidal ideations. Description of Barriers: Pt reports increased urges to relapse and drink which has triggered suicidal ideations. Pt has many negative core beliefs about himself which reinforces mental health stigma and has kept pt from seeking help in the past. Pt has some interpersonal relationship issues with his daughter which is contributing to his depression and anxiety. Functional Impact: Pt is a 41 year-old man with a history of alcohol use disorder, in full remission, and bipolar II disorder. Pt was referred to [facility] by his outpatient therapist due to worsening symptoms of depression, suicidal ideations, and anxiety that were impacting pt's functioning. Pt shared his symptoms have been worsening over the past year and that it is beginning to impact pt's work. At admission, pt endorses ruminations, fleeting suicidal ideations, lack of self-care, lack of appetite, hopelessness, worthlessness, and excessive guilt. Pt also reports poor sleep, vivid dreams, and difficulty concentrating. Goal Relevant Strengths/Supports: Pt is highly motivated, has outpatient therapy and psychiatry, and has been sober for 6 years. 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 - Objectives Objective #1 Stated Objective: Pt will learn and utilize 2-3 healthy coping strategies to better manage depressive symptoms and reduce suicidal ideations as shown by a decrease of DMS-5 symptoms for depression and SI. Interventions: Through group and individual sessions, therapist will help pt identify triggers and warning signs of depression and guilt including emotional, physical, and behavioral changes. Therapist will teach pt various coping skills to manage symptoms and give pt tangible resources to use to regulate emotions. Therapist will use cognitive restructuring techniques and help pt gain awareness of negative thoughts that reinforce guilt and depression. Therapist will provide psychoeducation on maintenance cycles and help pt learn ways to break unhealthy maintenance cycles. Therapist will help pt incorporate behavioral activation and assist pt in setting SMART goals. Discharge Criteria: Pt will have met this goal when can report learning and using at least 2 coping skills to manage depressive symptoms and reduce isolation. Additionally, pt will have met this goal when pt's DSM-5 scores for depression decrease. Target Date: 01/15/23 Review Date: 12/25/22 Status: open Objective #2 Stated Objective: Pt will identify at least 2-3 negative self-talk messages used to reinforce negative core beliefs, worthlessness, and isolation and replace thoughts with balanced, realistic messages. Interventions: Therapist will help pt identify distorted, negative beliefs about self and replace with more realistic, affirmative messages. Therapist will use CBT and DBT to help pt increase insight to the connection between thoughts, emotions, and behaviors. Therapist will encourage pt to practice thought challenging. Discharge Criteria: Pt will have achieved this goal when can verbalize at least 2 cognitive distortions and effectively replace those thoughts with affirmative messages. Target Date: 01/15/23 Review Date: 12/25/22 Status: open Problem/Goal #2 - Problem/Goal #2 Stated Goal:: Will reduce intensity of anxiety and PTSD symptoms through increasing emotional regulation and distress tolerance skills Description of Barriers: Pt reports increased urges to relapse and drink which has triggered suicidal ideations. Pt has many negative core beliefs about himself which reinforces mental health stigma and has kept pt from seeking help in the past. Pt has some interpersonal relationship issues with his daughter which is contributing to his depression and anxiety. Functional Impact: Pt is a 41 year-old man with a history of alcohol use disorder, in full remission, and bipolar II disorder. Pt was referred to [facility] by his outpatient therapist due to worsening symptoms of depression, suicidal ideations, and anxiety that were impacting pt's functioning. Pt shared his symptoms have been worsening over the past year and that it is beginning to impact pt's work. At admission, pt endorses ruminations, fleeting suicidal ideations, lack of self-care, lack of appetite, hopelessness, worthlessness, and excessive guilt. Pt also reports poor sleep, vivid dreams, and difficulty concentrating. Goal Relevant Strengths/Supports: Pt is highly motivated, has outpatient therapy and psychiatry, and has been sober for 6 years. 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 - Objectives Objective #1 Stated Objective: Pt will identify 2-3 anxiety triggers and 2 coping skills to use when feeling anxious to manage anxiety as shown by reducing DSM-5 scores for anxiety Interventions: Therapist will provide education on anxiety, avoidance behaviors, and maintenance cycles. Therapist will help pt explore personal symptoms and warning signs of anxiety. Therapist will teach pt coping skills to improve emotional regulation, mindfulness, and distress tolerance to help pt cope with anxiety in the moment. Discharge Criteria: Pt will have accomplished this goal when he can identify at least 2 triggers and report using 2 coping skills to manage anxiety. Additionally, pt will have accomplished this goal AEB reduction of DSM-5 scores for anxiety. Target Date: 01/15/23 Review Date: 12/25/22 Status: open Objective #2 Stated Objective: Pt will increase ability to manage stressors and anxiety by gaining 2-3 distress tolerance skills. Interventions: Through group and individual therapy, pt will learn various coping skills to help manage stress and anxiety. Therapist will utilize DBT distress tolerance skills to increase awareness and give pt tools to more effectively manage anxiety. Therapist will provide psychoeducation on emotional regulation and help pt identify unhealthy coping skills she wants to change. Discharge Criteria: Pt will have accomplished this goal when can report improved ability to manage stressors and identify at least 2 distress tolerance skills. Target Date: 01/15/23 Review Date: 12/25/22 Status: open
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
--- NOTE | 2022-12-05 11:15 | BH.SGPN.GN ---
Behaviors/Verbalizations/Mental Status: [] Client alert and oriented, neatly dressed and groomed. Eye contact good. Motor activity appropriate. Speech within normal limits. Affect congruent, mood euthymic. Thoughts linear, logical, no signs of hallucinations or delusions Client Response/Progress/Benefit: [] Client responded well to session AEB client listening attentively to others and providing input during group discussion. Client did well in the activity to be assertive and ask for feedback. Recognizes if group wasn't assertive in activity, they wouldn't have been successful. Discussed with group communication strategies used to make activity successful. Attentive during psychoeducation on interpersonal DBT skill COLEMAN. Client set a goal to work on expressing at least one of his needs over the next week for example letting his family know where he wants to go out to eat. Client seemed to benefit from increasing awareness of healthy strategies to improve communication. Will continue IOP tx to decrease anxiety, increase confidence, and prevent decompensation.
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
--- NOTE | 2022-12-05 12:36 | BH.DR.ITP ---
Initial Treatment Plan Patient Information Visit Information: ADMISSION DATE: EXPECTED LOS: 4-6 weeks Problems/Symptoms Problem #1:: Mood instability Symptom:: Depression, sadness, hopelessness, worthlessness, guilt, biological disruption of appetite, anhedonia, biological disruption of sleep, decreased concentration, passive thoughts of , passive suicidal ideation Problem #2:: Anxiety Symptom:: Worry, rumination, panic attacks, rituals around cleanliness and checking, nightmares, avoidance
--- NOTE | 2022-12-06 09:02 | BH.SGPN.GN ---
Behaviors/Verbalizations/Mental Status: []Eye contact is good. Motor activity is appropriate. Appearance is casual. Speech is Appropriate. Mood is depressed. Affect is congruent. Thoughts are linear and logical. No evidence of psychosis. Reviewed daily check in sheet reports a 4/5, with 5 being severe, for suicidal ideation and a 2/5 for suicidal intention. This is client's baseline for suicidal thoughts and ideation. Appears to not be at imminent risk to harm self or others. future oriented. Client Response/Progress/Benefit: []Client responded well to session AEB listening attentively to others and sharing thoughts and feelings. Client reported mental positive as facing his anxiety by going inside his ex-'s house to picker one of his daughters instead of staying in the car to avoid seeing his other daughter who does not really talk to him. Client reported he said hi to the 1 daughter that does not communicate with him instead of ignoring her and avoiding his anxiety. Client said additional mental positive as being honest with his that he is not doing well. Client stated in the past he would have lied and told her he was fine. Client suppressed anxiety about going back to work tomorrow because he struggles with being assertive and expressing what he needs. To benefit from support from peers. Client to continue IOP to increase healthy coping, improve confidence, and prevent decompensation. Narrative Note: []
--- NOTE | 2022-12-06 10:10 | BH.SGPN.GN ---
Behaviors/Verbalizations/Mental Status: [] Eye contact is good. Motor activity is appropriate. Appearance is neat. Speech is Appropriate. Mood is anxious. Affect is congruent. Thoughts are linear and logical. No evidence of psychosis. Client Response/Progress/Benefit: [] Pt was an active participant in group discussions. Attentive during psychoeducation. Engaged and provided feedback along with peers on defining anxiety. Along with peers worked together to identify the benefits of anxiety which included; motivates us, helps us prepare, helps us change and grow, helps us identify danger and can keep us safe. Participated during interactive discussion on how anxiety impacts one physically (increased heart rate, sweaty hands, etc), cognitively (poor concentration, fogginess, catastrophizing, etc), and behaviorally (avoidance, anger, safety behaviors, etc). Completed worksheet on how anxiety impacts her physically, cognitively, and behaviorally. Benefited from increase insight into anxiety's benefits and detriments. Will continue in IOP to maintain safety, prevent decompensation, increase healthy coping, and to stabilize mood. Narrative Note: []
--- NOTE | 2022-12-06 11:15 | BH.SGPN.GN ---
Behaviors/Verbalizations/Mental Status: []Pt alert and oriented, casually dressed and groomed. Eye contact good. Motor activity appropriate. Speech within normal limits. Affect congruent, mood anxious and euthymic. Thoughts linear, logical, no signs of hallucinations or delusions. Client Response/Progress/Benefit: []Pt was an active participant in group discussion AEB providing contributions throughout group and listening attentively to others. Attentive during psychoeducation on mindfulness and ways to utilize mindfulness techniques to improve anxiety management. The group practiced guided meditation during session. Engaged and attentive during group brainstorm of healthy anxiety reduction skills. Appeared to benefit from practicing in the moment coping skills and increasing repertoire of anxiety management skills. Pt selected wanting to work on using skills of visualization and spending time with pets more consistently. Pt will continue IOP tx to promote mood stability, further improve communication with supports, and prevent decompensation. Narrative Note: []
[2022-12-12 08:31] VITALS: BP 118/81; PULSE 82
== END 2022-12-07 23:59 ==
LOC: BHIOP 08:00
PROVIDERS: PCP Family Medicine; Referring Provider Psychiatry & Neurology Psychiatry; Visit Provider Psychiatry & Neurology Psychiatry
DX: F31.81 Bipolar II disorder (principal); F42.9 Obsessive-compulsive disorder, unspecified; F43.10 Post-traumatic stress disorder, unspecified; F10.91 Alcohol use, unspecified, in remission; Z79.899 Other long term (current) drug therapy
CPT/HCPCS: S9480; 90832; 90853

== ENCOUNTER 2022-12-10 08:20 | Outpatient (RCR) | payer MEDICARE, MEDICAID, SELFPAY ==
--- NOTE | 2022-12-11 09:05 | BH.SGPN.GN ---
Behaviors/Verbalizations/Mental Status: [] Eye contact is good. Motor activity is appropriate. Appearance is casual. Speech is Appropriate. Mood is anxious/irritable. Affect is congruent. Thoughts are linear and logical. No evidence of psychosis. Reviewed daily check in sheet and pt reports 4/5 for suicidal ideations and 2/5 for intent. This has been baseline numbers since entering IOP. Client Response/Progress/Benefit: [] Pt was an active participant in group discussion. Attentive. Daily symptom tracker notes 4/5 for depression, anxiety, and irritability. Pt talked at length regarding recent struggles and conflict with support. Insight that his emotions and perceptions impact his communication negatively. Gave recent examples which involve him being defensive and focusing on whether others are trying to manipulate him. Conflict and distress related to relationships with support significantly impact him and exacerbate depression. Benefited from group support, encouragement, and feedback. Will continue in IOP to maintain safety, increase healthy coping, and to prevent decompensation. Narrative Note: []
--- NOTE | 2022-12-11 10:15 | BH.SGPN.GN ---
Behaviors/Verbalizations/Mental Status: []Eye contact is good. Motor activity is appropriate. Appearance is casual. Speech is Appropriate. Mood is dysthymic and anxious. Affect is full. Thoughts are linear and logical. No evidence of psychosis. Client Response/Progress/Benefit: []Pt was an active participant in group discussions. Attentive during psychoeducation. Participated during interactive discussions in which peers attempted to define crisis. Pt identified several examples of potential crisis. Group also worked together to identify unhealthy responses to crisis which included; isolation, self-harm, overuse of distraction, avoidance, and lashing out. Pt identified he has struggled with managing his own emotions and communicating effectively his needs in times of potential crisis which has impeded his overall ability to manage the crisis situation. Benefited from increased understanding of crisis and awareness of personal responses to crisis. Pt will continue IOP tx to further improve communication with supports, maintain mood stability, and prevent decompensation. Narrative Note: []
--- NOTE | 2022-12-11 14:55 | BH.MDN_ITS ---
Multi-Disciplinary Note - Note 60-min Individual Time Started:: 12:05 Date: 12/11/22 Purpose of session/treatment goals addressed:: To work on goal #1 of pt's treatment plan. Eye Contact:: Good Motor Activity:: Restless Appearance:: Neat Speech:: Tangential Mood:: Anxious, Dysthymic Affect:: Congruent Thoughts:: Racing, Circular, No evidence of hallucinations/delusions noted Staff Interventions:: thought challenging, psychoeducation on: - cognitive t riangle and cognitive distortions, CBT techniques, strengths perspective, treatment planning, goal setting Client Response:: Pt responded well to session, open to meeting with therapist. Pt shared his initial appointment with Dr. Gutierrez went well and he feels this will be a good fit for continuity of care. Pt stated he is enjoying IOP and he is gaining valuable skills. Pt admits that his anxiety and negative thinking patterns are impacting his participation in group. Pt shared he worries that what he says is going to viewed as stupid or oversharing. Discussed mind-maya ding and pt stated he is very good at this. Pt was given homework to look over the different cognitive distortions as pt is gaining insight to how his thinking patterns impact emotions and behaviors. Pt also shared how his thinking patterns impact his interactions with his and his self-esteem. Pt processed some of his stressors and frustrations with his and family and pt appeared to be nefit from the non-judgmental environment. Pt was given the DEAR MAN handout as pt expressed one of his goals is to be less passive aggressive and a better communicator. Risks/Concerns:: Pt denies any active suicidal ideations. Denies any plan or intent. Pt does admit to passive SI still on a daily basis, but pt is able to control these thoughts. Protective factors including his and children. Pt is future oriented. Progress Toward Goals/Plan:: Pt is starting his second week of IOP tx and pt continues to respond well to IOP structure and format. Pt got connected to outpatient psychiatry today and saw Dr. Gutierrez. Pt continues to endorse a depressed mood, ruminations, lack of self-esteem, passive SI, hopelessness, and worthlessness. Pt endorses excessive, inappropriate guilt. Pt reports he is already gaining valuable skills from IOP and enjoys the peer connection. Pt will continue IOP tx to prevent decompensation, increase interpersonal effectiveness skills, and improve daily functioning. Time Stopped:: 13:00
--- NOTE | 2022-12-12 09:00 | BH.SGPN.GN ---
Behaviors/Verbalizations/Mental Status: []Eye contact good, casually dressed, motor activity appropriate, speech normal rate and tone, mood euthymic and anxious, congruent affect, thoughts linear and intact, no evidence of delusions or hallucinations. Reviewed pt's symptom tracker, pt suicidal ideation within established baseline, denies any plan or intent. Future oriented. Client Response/Progress/Benefit: []Pt responded well to session, attentive and willing to process with group. Identified current mental health win as making an effort to connect emotionally with his and honestly communicate about his mental health. Shared that this went well and she was supportive and encouraged pt to continue to engage in active communication. Additional win noted as having a positive visit with his adult daughter, sharing that he was able to still feel he can provide some forms of support and care to her despite her being an adult. Stressor noted as concerns regarding his youngest daughter?s living arrangements with her mother. Expressed plans to address this in family counseling with his daughter this afternoon. Pt appeared to benefit from group suggestions, support, and encouragement. Continues to display progress in engagement in group and willingness to try applying skills learned in tx. Recommended continued IOP tx to continue to improve self-compassion, reduce distortions, as well as prevent decompensation. Narrative Note: []
--- NOTE | 2022-12-12 10:10 | BH.SGPN.GN ---
Behaviors/Verbalizations/Mental Status: [] Eye contact is good. Motor activity is appropriate. Appearance is casual. Speech is Appropriate. Mood is anxious. Affect is congruent. Thoughts are linear and logical. No evidence of psychosis. Client Response/Progress/Benefit: [] Pt was an active participant in group discussion. Attentive during psychoeducation on the CBT Patriot (Thoughts, Behaviors, Emotions). Engaged in small group session in which members identified common thoughts, emotions, and actions associated with an event associated with social anxiety. Completed worksheet in which pt identified a thought that is keeping him stuck or is in obstacle to increased mental wellness. The thoughts that pt identified were fear of rejection and fear of not making sense. Benefited from increased awareness of the basis of CBT therapy as well as thoughts are impacting pt' progress. Will continue in IOP to maintain safety, prevent decompensation, and to increase healthy coping skills. Narrative Note: []
--- NOTE | 2022-12-12 11:10 | BH.SGPN.GN ---
Behaviors/Verbalizations/Mental Status: []Pt alert and oriented, neatly dressed and groomed. Eye contact good. Motor activity appropriate. Speech within normal limits. Affect congruent, mood depressed. Thoughts linear, logical, no signs of hallucinations or delusions. Client Response/Progress/Benefit: []Pt responded well to session, contributing to discussion when prompted, and attentive throughout discussion. Pt identified a negative thought that has kept them stuck. Pt's thought was I don?t make sense when I talk.? Pt reported when they think this way, pt gets anxious and shuts down which results in pt not getting his needs met or voice heard. Pt worked to reframe the thought by finding more rational, realistic ways to look at the thoughts and then processed within group setting. Pt reframed the thought to ?I can share my thoughts and it is other people?s responsibility to ask for clarification.? Pt appeared to benefit from practicing challenging negative thinking. Pt will continue IOP tx to prevent decompensation, increase self-compassion, and maintain safety. ? Narrative Note: []
--- NOTE | 2022-12-12 12:07 | PCM.BH.PN ---
Progress Note Progress Note: History of Present Illness/Interim History: The patient is a 41-year-old male with a history of depression, anxiety and alcohol use disorder with a recent diagnosis of bipolar 2 disorder who is seen in follow-up at the [facility] behavioral health IOP program. I last saw the patient 1 week ago and at that time we agreed to discontinue his Wellbutrin and to start Seroquel 50 mg for several nights and then 100 mg at bedtime. He has taken the Seroquel for 5 nights now. He is tolerating it well and notices a little drowsiness during the day and his sleep has improved. 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 He remains sober from alcohol and has been sober from alcohol for 6 years. The patient states that he remains depressed but that he is having much less suicidal ideation than he was before he started the program. He has some passive thoughts that he would not care if he but less now than before he started the program 1 week ago. He still endorses most of the depression symptoms that he did 1 week ago. He is enjoying the program and feels he is learning valuable skills and enjoys the group experience. He is unsure if his irritability has improved since discontinuing Wellbutrin 300 mg 1 week ago. Overall he has not noticed improvement in his symptoms but since its only been 1 week that would be expected. He denies active suicidal ideation, plan for suicide, homicidal ideation, hallucinations or delusions. He states again that his children and his are protective of him committing suicide as are his Zoroastrian beliefs. Current Psychiatric Medications: [] Wellbutrin XL 300 mg discontinued 1 week ago. Seroquel 100 mg p.o. nightly for about 5 days now or 4 days. Naltrexone 50 mg p.o. daily which she has not started and is uncertain if he will start. Mental Status Examination: [] The patient is a 41-year-old male who is seen wearing a hat and has a scar from cleft palate surgery on his left upper lip. He is ambulatory with a normal gait and has no psychomotor agitation or retardation. Eye contact is good and he is casually dressed and groomed with good hygiene. He is cooperative during the interview. Eye contact speech is normal rate and rhythm and fluent with no pressure. Mood is depressed. Affect is mildly constricted. Thought process is goal-directed and organized. Thought content: There is evidence of passive thoughts of . There is evidence of suicidal ideation which is made more severe when he gets urges to relapse on alcohol. There is no evidence of a plan for suicide or active suicidal ideation. There is no evidence of homicidal ideation, hallucinations or delusions. Reality testing is intact. Intelligence is average. Judgment is intact. Insight is good. Impulsivity is moderate. Diagnoses: [] 1. Bipolar 2 disorder; currently depressed 2. OCD (mild) 3 PTSD 4. Alcohol use disorder in full remission for over 6 years 5. Primary support and work issues Plan: [] The patient will continue the IOP program at [facility] as the structure, support, education and group therapy will hopefully prevent worsening of the patient's symptoms which might require hospitalization. He felt safe during the interview and if it anytime he does not feel safe he will let us know or go to the emergency room. The risk, options, side effects and complications of the medications were again discussed with the patient and he understands and accepts these. The patient agrees to stay off the energy drinks which she had been using several times a day. He agrees to continue to be sober from all alcohol and drug use. He will continue the Seroquel at the current dose of 100 mg p.o. nightly. He will continue to consider whether he would like to start the naltrexone to reduce alcohol cravings or not. He will continue to follow-up with his outpatient providers and I will see the patient in follow-up in 2 weeks or as needed.
--- NOTE | 2022-12-14 09:05 | BH.SGPN.GN ---
Behaviors/Verbalizations/Mental Status: [] Eye contact is good. Motor activity is appropriate. Appearance is casual. Speech is Appropriate. Mood is anxious. Affect is congruent. Thoughts are linear and logical. No evidence of psychosis. Reviewed daily check in sheet and pt reports 4/5 for suicidal thoughts and 2/5 for intent. This has been pt's baseline since entering IOP. Client Response/Progress/Benefit: [] Pt was an active participant in group discussions. Attentive. Daily symptom tracker notes 4/5 for depression, anxiety, and irritability (these are all baseline). Able to identify mental health wins which included being able to help his step-daughter. He continues to work on relationship building with her and by assisting with the stressor led to her calling him Stepdad for the first time which made him feel good. Family dynamics and interactions continue to be both rewarding and distressful. His depression continues to impact him significantly each day. Benefited from group support, encouragement, and feedback. Will continue in IOP to maintain safety, increase healthy coping, and prevent decompensation. Narrative Note: []
--- NOTE | 2022-12-14 10:15 | BH.SGPN.GN ---
Behaviors/Verbalizations/Mental Status: []Pt alert and oriented, casually dressed and groomed. Eye contact good. Motor activity appropriate. Speech within normal limits. Affect congruent, mood anxious. Thoughts linear, logical, no signs of hallucinations or delusions. Client Response/Progress/Benefit: []Pt was an engaged participant AEB providing input, listening to others, and taking notes. Participated in interactive group discussion on internal and external barriers to mental health progress. Pt described current reality using a puzzle metaphor. Pt shared feeling like ?I?m scattered and my thoughts and emotions are all over the place?. Reported desired reality is being able to better understand, identify, and manage his thoughts and emotions. Pt shared personal barriers to desired realty include: difficulties accepting change, poor boundaries, and negative self-talk. Benefited from increased awareness of current barriers to progress as well as current/desired realities. Pt to continue IOP to prevent decompensation, improve daily functioning, and increase use of healthy coping skills. ? Narrative Note: []
--- NOTE | 2022-12-14 11:10 | BH.SGPN.GN ---
Behaviors/Verbalizations/Mental Status: []Client alert and oriented, casually dressed and groomed. Eye contact good. Motor activity appropriate. Speech within normal limits. Affect congruent to topics being discussed, mood anxious. Thoughts linear, logical, no signs of hallucinations or delusions. Client Response/Progress/Benefit: []Client an active participant, encouraging peers and contributed as group brainstormed ideas on how to cope with internal barriers that keep clients stuck from moving towards goals. Able to identify barriers to desired reality. Worked with group to identify strategies to help overcome barriers. Identified personal barriers to desired reality. Client wants to work on overcoming the barrier of negative perspective by starting to look at situations from the other persons point of view. Benefited from group by identifying obstacles and solutions to desired reality. Client to continue IOP to increase healthy coping, improve view of self, and prevent decompensation.
--- NOTE | 2022-12-18 09:05 | BH.SGPN.GN ---
Behaviors/Verbalizations/Mental Status: []Pt alert and oriented, neatly dressed and groomed. Eye contact good. Motor activity appropriate. Speech within normal limits. Affect congruent, mood sad and hurt. Thoughts linear, logical, no signs of hallucinations or delusions. Reviewed pt?s symptom tracker, no risk for suicidal ideation, plan, or intent as of 12/18/22 Client Response/Progress/Benefit: []Pt responded well to session, receptive to feedback. Pt reports feeling alone and misunderstood this morning due to frustration with work and family issues. Pt is currently struggling to rectify his relationship with his two oldest daughters and this is weighing on pt. Pt stated he is trying to stay focused on his goals and utilize healthier skills, so he can give himself credit for that. Pt receptive to gentle thought challenging and encouragement from group. Pt will continue IOP tx to reduce negative thinking patterns, improve mood stability, and increase self-confidence. Narrative Note: []
--- NOTE | 2022-12-18 10:12 | BH.SGPN.GN ---
Behaviors/Verbalizations/Mental Status: []Client alert and oriented, casually dressed and groomed. Eye contact good. Motor activity appropriate. Speech within normal limits. Affect congruent, mood anxious and dysthymic. Thoughts linear, logical, no signs of hallucinations or delusions. Client Response/Progress/Benefit: []Client receptive of session, actively engaged throughout AEB taking notes and listening to discussion. However, pt less engaged in discussion than in prior sessions, at times appearing distracted by own thoughts. Appeared to connect with group topic of cognitive distortions and the impact of thought patterns on mental health, coping behaviors, and relationships. Reflected that he connects with distortions of mind-reading and personalization. Client appeared to benefit from gaining insight on distorted thinking patterns and how this impacts overall mental health. Progress noted in client report of improved insight and ability to combat distortions with alternative positive thoughts. Will continue IOP tx to improve thought challenging and confidence, continue to promote mood stability, and further increase overall functioning. Narrative Note: []
--- NOTE | 2022-12-18 11:15 | BH.SGPN.GN ---
Behaviors/Verbalizations/Mental Status: []Eye contact is good. Motor activity is appropriate. Appearance is casual. Speech is WNL. Mood is anxious. Affect is congruent. Thoughts are linear and logical. No evidence of psychosis. Client Response/Progress/Benefit: []Pt engaged participant AEB providing input during small group discussion and engaging in activity. Activity involved working with peers to answer questions related to psychoeducation on cognitive distortions and practicing reframing distorted thoughts. Pt collaborated with the group to determine the answers. Identified cognitive distortion struggles with the most as all or nothing thinking. Able to connect impat distortions has on his mental health. Benefited from rehearsing ways to challenge/reframe cognitive distortions and by gaining increased insight into examples/definitions of 10 most common cognitive distortions. Will continue in IOP to improve view of self, increase use of healthy coping, and prevent deocompensation.
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
--- NOTE | 2022-12-19 09:01 | BH.SGPN.GN ---
Behaviors/Verbalizations/Mental Status: [] Eye contact good. Motor activity appropriate. Speech within normal limits. Affect congruent, mood anxious and euthymic. Thoughts linear, logical, no signs of hallucinations or delusions. Reviewed client?s symptom tracker, no risk for suicidal ideation, plan, or intent. Client Response/Progress/Benefit: [] Client responded well to session, attentive and willing to process with group. Client noted current stressor as his phone broke this morning. Client stated he handled this stressor better than he would have a few weeks ago which he notes as a mental win. Client identified additional mental health win as being alive on my birthday. Client notified additional mental health positive as continuing to work on rebuilding his relationship with his older daughter. Client shared his daughters partner texted client to apologize in client responded instead of ignoring this interaction. Client appeared to benefit from group support and encouragement. Progress noted with client working on increasing his vulnerability. Recommended continued IOP tx to continue to continue use of healthy coping skills, increase confidence, challenge negative thoughts, and prevent decompensation.
--- NOTE | 2022-12-19 10:10 | BH.SGPN.GN ---
Behaviors/Verbalizations/Mental Status: []Pt alert and oriented, neatly dressed and groomed. Eye contact good. Motor activity appropriate. Speech within normal limits. Affect congruent, mood anxious. Thoughts linear, logical, no signs of hallucinations or delusions. Client Response/Progress/Benefit: []Pt was an active participant in group discussion and activity. Attentive during psychoeducation. Along with peers was able to identify barriers to taking action. Identified several symptoms and stressors that she feels are holding him back from progress such as shame, fear of what others think, and self-judgement. Stated these things have kept pt from accepting help, accepting himself, and setting boundaries. Benefited from increased self-awareness of obstacles. Will continue IOP tx to promote mood stability, reduce negative self-talk, and increase self-care practices. Narrative Note: []
--- NOTE | 2022-12-19 11:10 | BH.SGPN.GN ---
Behaviors/Verbalizations/Mental Status: []Client alert and oriented, casually dressed and groomed. Eye contact good. Motor activity appropriate. Speech within normal limits. Affect congruent, mood anxious and distracted at times by own thoughts. Thoughts linear, logical, no signs of hallucinations or delusions. Client Response/Progress/Benefit: []Client responded well to session, taking notes and participating in worksheet discussion. Client connected with the zones of action/change and that making sustainable change comes from stepping out of one?s comfort zone into the learning zone. Client set a goal to gain control over guilt/shame. Client reported plans to challenge himself to create an accomplishment list in order to work towards this goal. Client identified using trusted supports, therapy, internal supports, and awards for each day he accomplishes the task as supports needed to help accomplish this goal. Appeared to benefit from identifying a small goal to benefit mental health. Will continue IOP tx to increase healthy coping, promote mood stability, and prevent decompensation. Narrative Note: []
--- NOTE | 2022-12-20 09:05 | BH.SGPN.GN ---
Behaviors/Verbalizations/Mental Status: [] Eye contact is good. Motor activity is appropriate. Appearance is casual. Speech is Appropriate. Mood is anxious. Affect is congruent. Thoughts are linear and logical. No evidence of psychosis. Reviewed daily check in sheet and pt reports 2/5 for suicidal thoughts and 1/5 for intent. This has been baseline for this week. Client Response/Progress/Benefit: [] Pt was an active participant in group discussion. Attentive. Provided appropriate feedback. Daily symptom tracker notes 3/5 for anxiety, depression, and agitation. Emotion for today is appreciative. Mental health wins included addressing certain responsibilities rather than avoiding them. He was able to utilize anger mgmt skills more effectively in the past week. He credits medications and skills learned in IOP for his improvement in mood management. He also shared some stressors and emotions that he continues to struggle with daily. Beneifted from group support, encouragment, and feedback. Will continue in IOP to maintain safety, prevent decompensation, and increase healthy coping skills. Narrative Note: []
--- NOTE | 2022-12-20 10:10 | BH.SGPN.GN ---
Behaviors/Verbalizations/Mental Status: []Pt alert and oriented, casually dressed and groomed. Eye contact good. Motor activity appropriate. Speech within normal limits. Affect congruent, mood euthymic. Thoughts linear, logical, no signs of hallucinations or delusions. Client Response/Progress/Benefit: []Pt was an active participant during interactive group discussions. Attentive during psychoeducation on the six types of boundaries. Pt along with peers contributed to interactive discussion on defining what a boundary is and group identified challenges to setting boundaries which included; difficulties communicating, fear of hurting someone?s feelings, and fear of being a burden or asking for ?too much?. Group reviewed the 6 types of boundaries. Pt provided personal examples of what a violation of sexual boundaries might look like, indicating ?unwanted eye contact or staring? as an example. Pt benefited from increased awareness and insight on the importance/benefit to setting health boundaries. Will continue IOP tx to prevent decompensation, improve daily functioning, and reduce negative thinking patterns. ? Narrative Note: []
--- NOTE | 2022-12-20 11:15 | BH.SGPN.GN ---
Behaviors/Verbalizations/Mental Status: []Pt alert and oriented, neatly dressed and groomed. Eye contact good. Motor activity appropriate. Speech within normal limits. Affect congruent, mood euthymic. Thoughts linear, logical, no signs of hallucinations or delusions. Client Response/Progress/Benefit: []Pt responded well to session AEB listening attentively to peers and providing input. Pt attentive during psychoeducation on the different boundary styles. Pt reported he struggles with being ?emotionally rigid? and ?porous with my time and material boundaries?. Pt notices at work he is very porous with his time. Pt stated they realize not setting boundaries has led pt to agreeing to things he does not want to do which impacts how others can trust him. Pt was given a handout on strategies for healthy boundary setting. Appeared to benefit from increasing insight to boundary setting and the impacts on mental health. Seemed to benefit from increased awareness of boundary styles and strategies to improve setting boundaries. Will continue IOP tx to increase healthy coping, reduce negative thinking patterns, and improve mood stability. Narrative Note: []
--- NOTE | 2022-12-25 09:05 | BH.SGPN.GN ---
Behaviors/Verbalizations/Mental Status: []Eye contact good, casually dressed, motor activity appropriate, speech normal rate and tone, mood euthymic and anxious, congruent affect, thoughts linear and intact, no evidence of delusions or hallucinations. Reviewed pt's symptom tracker, pt suicidal ideation within established baseline, denies any plan or intent. Future oriented. Client Response/Progress/Benefit: []Pt responded well to session, attentive and willing to process with group. Identified current mental health wins as allowing himself to be more vulnerable and open in the group setting. Shared that this has been an uncomfortable but empowering experience. Additional win noted as excitement that this nephew thought to reach out and share an accomplishment with pt. Reports feeling glad he was able to celebrate this with him. Current stressor identified as feeling invalidated and dismissed by his sister when sharing with her during the conversation. Pt appeared to benefit from supportive feedback and suggestions provided by the group, as well as the opportunity to verbally process. Continues to report progress in improved mood and ability to challenge his perspective. Recommended continued IOP tx to further to improve healthy communication with supports, promote mood stability, as well as prevent decompensation. Narrative Note: []
--- NOTE | 2022-12-25 10:10 | BH.SGPN.GN ---
Behaviors/Verbalizations/Mental Status: []Pt alert and oriented, neatly dressed and groomed. Eye contact good. Motor activity appropriate. Speech within normal limits. Affect congruent, mood depressed. Thoughts linear, logical, no signs of hallucinations or delusions. Client Response/Progress/Benefit: []Pt was an active participant in group discussions and activities. Attentive during psychoeducation. Pt engaged during interactive discussion in which the group defined self-care and discussed its benefits. ?Worked with peers in a small group to identify myths related to self-care which included; Self-care is expensive, self-care is selfish, not everyone deserves self-care, self-care means a person is weak, and self-care takes up too much time. Pt shared he struggles with practicing self-care because he is used to taking care of other people?s needs constantly. Pt participated in small groups where they worked to bust these self-care myths. Benefited from increased awareness of self-care, its benefits, and the consequences of not utilizing self-care strategies. Will continue IOP tx to promote mood stability, increase distress tolerance skills, and improve self-confidence. Narrative Note: []
--- NOTE | 2022-12-25 11:10 | BH.SGPN.GN ---
Behaviors/Verbalizations/Mental Status: []Pt alert and oriented, casually dressed and groomed. Eye contact good. Motor activity appropriate. Speech within normal limits. Affect congruent, mood anxious. Thoughts linear, logical, no signs of hallucinations or delusions. Client Response/Progress/Benefit: []Pt engaged participant AEB completing self-assessment worksheet and providing input throughout discussion. Participated in group discussion on the various areas of self-care. Pt completed worksheet identifying current self-care practices and what self-care activities pt wants to start using. Pt selected financial self-care to begin practicing more consistently. Pt plans to do this by focusing on paying off small debts. Appeared to benefit from completing the self-care evaluation and gaining insights into current self-care practices, as well as identifying areas in which pt would like to improve upon.?Pt is to continue IOP to continue use of skills, challenge distorted thoughts, and prevent decompensation.
--- NOTE | 2022-12-26 09:05 | BH.SGPN.GN ---
Behaviors/Verbalizations/Mental Status: []Eye contact good, casually dressed, motor activity appropriate, speech normal rate and tone, mood depressed and anxious, congruent affect, thoughts linear and intact, no evidence of delusions or hallucinations. Reviewed pt's symptom tracker, pt suicidal ideation within established baseline, denies any plan or intent. Future oriented. Client Response/Progress/Benefit: []Pt responded well to session, attentive and willing to process with group. Identified current mental health win as making plans to hangout with a friend who will be visiting in March. Noted this is outside his comfort zone as he does not usually allow himself to spend time developing friendships with other men. Expressed that allowing himself to step outside his comfort zone and practice being vulnerable continue to be a win for him and he is beginning to see more positive outcomes on his mental health as a result. Stressor noted as it being his estranged daughter?s birthday tomorrow. Reports plans to discuss an coping plan in individual session this afternoon. Pt appeared to benefit from supportive feedback provided by the group. Recommended continued IOP tx to continue to improve healthy self-talk, promote mood stability, as well as prevent decompensation. Narrative Note: []
--- NOTE | 2022-12-26 10:10 | BH.SGPN.GN ---
Behaviors/Verbalizations/Mental Status: [] Client alert and oriented, casually dressed and groomed. Eye contact good. Motor activity appropriate. Speech within normal limits. Affect congruent, mood euthymic.. Thoughts linear, logical, no signs of hallucinations or delusions. Client Response/Progress/Benefit: [] Client responded well to session AEB taking notes throughout and listening attentively to others. Client was attentive throughout group activity discussing famous individuals and how they overcame failure to be successful. Client helped group identify how fear of failure can impact mental health and relationships. Client shared with group how jose acted as a wake up call for him and ended up being the thing that put in on the right route to be able to succeed. Group together identified how fear of failure leads to over-obsessing, not trying, and lack of confidence. Client participated in experiential activity, working with group members to problem solve. Client was encouraging to group members throughout activity. Appeared to benefit from increased knowledge of fear of failure. Will continue IOP tx to improve self-confidence, reduce distorted thinking patterns, and increase overall functioning. Narrative Note: []
--- NOTE | 2022-12-26 13:58 | BH.MTP_ITS ---
Treatment Plan Review Date of Admission:: 12/04/22 Date of Treatment Plan Review:: 12/26/22 Admitting Diagnoses:: Bipolar 2 disorder, most recent episode depressed without psychosis F31.81; OCD tendencies; PTSD; Alcohol use disorder in full remission (6 years sober). Current Diagnoses:: Bipolar 2 disorder, most recent episode depressed without psychosis F31.81; OCD tendencies; PTSD; Alcohol use disorder in full remission (6 years sober). Patient's Response to Treatment:: Pt has responded well to treatment AEB pt consistently attending IOP sessions and reduction of overall symptoms on the DSM-5 by 50% since admission. Pt's depressive symptoms have reduced by 43% and anxiety by 58% since admission. Pt contributes during individual sessions and he is engaged during group sessions. Pt applies coping skills outside of IOP and reports medication compliance. Pt is consistent with his goals per his self- report. Status of Current Problems and Symptoms: PT reports belief his medication is working as pt is getting more sleep and feeling more motivation. Pt is somewhat concerned that he is sleeping too much, but he notices more benefits to the medication. Pt continues to endorse a depressed mood, passive SI, ruminations, negative core beliefs of self, excessive guilt, and some difficulty with concentration and memory. Pt also reports anxiety and negative thinking patterns triggered by not working and not living up to his expectations of self. Problem #1 Problem Name:: Mood Instability, hopelessness, worthlessness, guilt, suicidal ideations Status of Goals:: Objective 1-complete with ongoing maintenance encouraged. Pt's DMS-5 scores for depression have decreased by 43% since admission with SI decreasing by 75%. Pt reports using opposite action, behavioral activation, and thought challenging. Objective 2- in progress. Pt is gaining awareness of his cognitive distortions and negative core beliefs, but pt is not confident in challenging these yet. Team Recommendations:: Tx team encourages pt to continue working on this goal, specifically focused on combating negative thought patterns that reinforce guilt and worthlessness. Pt is also working on his daily habit tracker which has helped improve pt's functioning and getting pt back into hobbies he enjoys. Problem #2 Problem Name:: Anxiety, PTSD, ruminations Status of Goals:: Objective 1- complete with ongoing maintenance encouraged. Pt's DSM-5 scores for anxiety have decreased by 58% since admission. Pt reports less avoidance and not feeling panic as often. Pt reports using breathing and grounding skills to manage his anxiety and PTSD symptoms. Objective 2- in progress. Pt self-reports improvement in his ability to manage stressors as pt is not flipping out when he is faced with issues like he was before. Pt is doing better with challenging his perspective, but he can continue to strength these skills. Team Recommendations:: Tx Team encourages pt to continue working on this goal, specifically focusing on reducing ruminations that reinforce anxiety. Pt is also working on incorporating mindfulness skills and using assertive communication.
--- NOTE | 2022-12-26 13:58 | BH.MDN ---
Multi-Disciplinary Note - Note 60-min Individual Time Started:: 12:05 Date: 12/26/22 Purpose of session/treatment goals addressed:: To work on goal #1 of pt's tx plan. Another goal was to discuss assertive communication skills. Eye Contact:: Good Motor Activity:: Restless Appearance:: Neat Speech:: Tangential, Rapid Mood:: Anxious, Dysthymic Affect:: Congruent Thoughts:: Circular, No evidence of hallucinations/delusions noted Staff Interventions:: thought challenging, CBT techniques, strengths perspective, reviewed DSM-5, goal setting, other - gave pt assessment on mistaken beliefs Client Response:: Pt responded well to session, open to meeting with therapist. Pt shared belief he is functioning better in some ways and he is noticing improvement from the medications. Pt shared that he is a little distressed that he is no longer a morning person as the medications make him groggy. Pt is having much less suicidal ideations, but he is still having passive SI at times and feels excessive guilt. Pt recognizes that he is learning a lot in IOP about himself, relationships, etc and this is making pt catch on to more things at home. Pt discussed recent stressor with his and how pt sometimes feels she is invalidating to him. Pt, however, blames himself and often personalizes which he is working on in IOP, but pt can see his is passive-aggressive which is triggering. Pt also notices that he is recently more anxious about his marriage because his is taking on a second job to supplement their income. Pt is fearful that his is upset to be doing this and that she has made comments that she says are a joke. Pt receptive to thought challenging and encouragement to practice assertive communication with his about his concerns and perspective. Pt shared that he has struggled with excessive guilt for a long time and he is receptive to working on this through exploration of his mistaken beliefs. Pt will complete the mistaken belief questionnaire for homework. Risks/Concerns:: Pt reports a 2/5 for thoughts of suicidal ideations and 0/5 for risk today per his daily symptom tracker. Pt is future oriented and his family are protective factors. No report of active SI, plan, or intent. Progress Toward Goals/Plan:: Pt continues to make progress towards his tx goals AEB pt's 50% symptom reduction per the DSM-5 at time of review. PT reports belief his medication is working as pt is getting more sleep and feeling more motivation. Pt is somewhat concerned that he is sleeping too much, but he notices more benefits to the medication. Pt continues to endorse a depressed mood, passive SI, ruminations, negative core beliefs of self, excessive guilt, and some difficulty with concentration and memory. Pt does not report any urges to drink. Pt will continue IOP tx to promote mood stability, combat distortions, and improve overall functioning.
--- NOTE | 2022-12-28 09:00 | BH.SGPN.GN ---
Behaviors/Verbalizations/Mental Status: []Pt alert and oriented, neatly dressed and groomed. Eye contact good. Motor activity appropriate. Speech within normal limits for pt-tangential. Affect congruent, mood anxious. Thoughts linear, logical, no signs of hallucinations or delusions. Reviewed pt?s symptom tracker, no risk for suicidal ideation, plan, or intent as of 12/28/22 Client Response/Progress/Benefit: []Pt responded well to session, receptive to feedback and engaged. Pt reports feeling overstimulated this morning. Pt shared that his biggest stressor is that his youngest daughter was at a friend's house and people were smoking weed around her. Pt shared this made him frustrated and worried and pt plans to address this with his and his daughter's friend's parents. Pt stated he is working on managing his emotions while also being more assertive which is challenging for pt. Pt reports using music and song writing to cope and practice self-care. Pt appeared to benefit from connecting with peers and validation. Pt will continue IOP tx to promote mood stability, reduce negative thinking patterns, and increase distress tolerance skills. Narrative Note: []
--- NOTE | 2022-12-28 10:00 | BH.SGPN.GN ---
Behaviors/Verbalizations/Mental Status: [] Client alert and oriented, neatly dressed and groomed. Eye contact good. Motor activity appropriate. Speech within normal limits. Affect congruent, mood euthymic. Thoughts linear, logical, no signs of hallucinations or delusions. Client Response/Progress/Benefit: [] Client responded well to session, attentive during psychoeducation on SMART goals (Specific, Measurable, Achievable, Realistic, and Time-bound) and engaged in group experiential activity. Active during interactive discussion with peers in which they worked together to define what a goal is and the benefits of having goals. Group identified benefits as; giving a sense of purpose, improving motivation, and helping reduce negative mental health symptoms. Participated in interactive discussion in which group identified barriers to setting goals and following through with goals. Barriers included not feeling worthy, negative self-talk, time, and cognitive distortions such as all or nothing thinking. Client shared how negative experience when he was younger has created a barrier in setting/accomplishing goals for him. Benefited from increased awareness of benefits and strategies for goal-setting. Will continue in [facility] tx to improve coping skills, reduce negative thinking patterns, and improve daily functioning. Narrative Note: []
--- NOTE | 2022-12-28 11:10 | BH.SGPN.GN ---
Behaviors/Verbalizations/Mental Status: [] Client alert and oriented, casually dressed, appropriately groomed. Eye contact good. Motor activity appropriate. Speech within normal limits. Affect congruent, mood euthymic. Thoughts linear, logical, no signs of hallucinations or delusions. Client Response/Progress/Benefit: [] Client was engaged during discussion and willing to complete the worksheet challenging them to develop a personal SMART goal. Client chose the goal of singing karaoke with his daughter . Client stated this will benefit them by connecting with daughter with showing vulnerability and having fun together. Client identified barriers which included perfectionism, fear, and making it all about himself. Identified for solutions of laughing at self and reminders of how it will benefit him. Client receptive to identifying solutions for these barriers and willing to begin working on this goal. Benefited from this group by developing a short-term SMART goal related to mental health. Will continue IOP tx to increase health thought patterns, improve daily functioning, and prevent decompensation. Narrative Note: []
--- NOTE | 2022-12-31 09:05 | BH.SGPN.GN ---
Behaviors/Verbalizations/Mental Status: [] Eye contact is good. Motor activity is appropriate. Appearance is casual. Speech is Appropriate. Mood is depressed. Affect is congruent. Thoughts are linear and logical. No evidence of psychosis. Reviewed daily check in sheet and pt reports 1/5 for suicidal thoughts and 0/5 for intent. This is improvement from admission scores. Client Response/Progress/Benefit: [] Pt was an active participant in group discussion. Attentive. Daily symptom tracker notes 3/5 for depression and 2/5 for anxiety. Emotion for today is hesitant. Mental health win is that he completed his goals for this weekend. He elaborated on his goal and how is was beneficial to his mental health. Overall he reports that he is managing his emotions more effectively, communicating more effectively, and functioning more effectively. Benefited from group support, encouragement, and feedback. Will continue in IOP to maintain safety, prevent decompensation, and increase healthy coping skills. Narrative Note: []
--- NOTE | 2022-12-31 10:20 | BH.SGPN.GN ---
Behaviors/Verbalizations/Mental Status: []Pt alert and oriented, casually dressed and groomed. Eye contact good. Motor activity appropriate. Speech within normal limits. Affect congruent, mood anxious. Thoughts linear, logical, no signs of hallucinations or delusions. Client Response/Progress/Benefit: []Pt was an active participant AEB contributing to discussion, taking notes, and engaging in group activity. Connected with the topic of pitfalls and listened to group discussion on barriers that prevent from choosing a healthier path to mental wellness. Group worked together to identify examples of personal pitfalls and pt identified theirs as lack of communication, high expectations, and procrastination.? Pt benefited from group as pt learned to better identify potential barriers to improving mental health symptoms. Pt will continue IOP tx to improve confidence, challenge distortions, and prevent decompensation.
--- NOTE | 2022-12-31 11:20 | BH.SGPN.GN ---
Behaviors/Verbalizations/Mental Status: []Pt alert and oriented, neatly dressed and groomed. Eye contact good. Motor activity appropriate. Speech within normal limits. Affect constricted, mood anxious. Thoughts linear, logical, no signs of hallucinations or delusions. Client Response/Progress/Benefit: []Pt receptive of session, engaged throughout AEB actively listening and contributing to discussion, as well as taking notes.? Pt participated in the experiential activity and did well to communicate ideas with peers and manage emotions. Pt and group processed how the emotions and perspective of the group after the break positively impacted pt. Group worked together to identify different coping skills to help manage pitfalls. Pt identified pitfalls they struggle with and shared wanting to work on pitfall of unrealistic expectations for self and others by asking himself ?where is the morales.? ?Benefited from identifying personal pitfalls and strategies to overcome these pitfalls. Pt continues to struggle with negative thinking patterns that reinforce guilt and shame. Will continue IOP tx to increase use of healthy coping skills, improve self-compassion, and reduce intensity of depression. Narrative Note: []
--- NOTE | 2023-01-01 09:05 | BH.SGPN.GN ---
Behaviors/Verbalizations/Mental Status: []Pt alert and oriented, neatly dressed and groomed. Eye contact good. Motor activity appropriate. Speech tangential. Affect congruent, mood anxious. Thoughts linear, logical, no signs of hallucinations or delusions. Reviewed pt?s symptom tracker, no risk for suicidal ideation, plan, or intent as of 01/01/23 Client Response/Progress/Benefit: []Pt responded well to session, attentive and providing supportive statements. Pt reports feeling a little bit off today and nervous. 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 Pt shared he is utilizing more healthy coping skills such as opposite action and self-care. Pt spent time with his daughter playing music and he reached out to his best friend. Pt continues to make progress towards his treatment goals, but he still struggles with challenging negative thinking patterns. Pt will continue IOP tx to promote mood stability, increase self-compassion, and improve emotional regulation. Narrative Note: []
--- NOTE | 2023-01-01 10:15 | BH.SGPN.GN ---
Behaviors/Verbalizations/Mental Status: []Client alert and oriented, casually dressed and groomed. Eye contact good. Motor activity appropriate. Speech within normal limits. Affect congruent to topics being discussed, mood euthymic and anxious. Thoughts linear, logical, no signs of hallucinations or delusions. Client Response/Progress/Benefit: []Pt engaged in session AEB listening attentively to others and providing insight to group discussion. Pt engaged in activity, able to connect how it can be uncomfortable when things are out of one?s own control. Pt worked with group to identify what things in life can be hard to accept. Group identified things hard to accept as: of a loved one, body image, loss of relationship, mental health diagnosis, other?s behaviors, and past decisions. Pt worked on identifying what personal things are hard to accept for themself, sharing past mistakes and their diagnosis are things they struggle with accepting. Pt seemed to benefit from increased awareness of importance of acceptance. Pt to continue IOP to improve confidence, increase ability to challenge and replace negative cre beliefs , and prevent decompensation. Narrative Note: []
--- NOTE | 2023-01-01 11:15 | BH.SGPN.GN ---
Behaviors/Verbalizations/Mental Status: []Pt alert and oriented, casually dressed and groomed. Eye contact good. Motor activity appropriate. Speech within normal limits. Affect congruent, mood euthymic. Thoughts linear, logical, no signs of hallucinations or delusions. Client Response/Progress/Benefit: []Pt responded well to session, engaged and providing examples. Pt engaged as group continued discussion on acceptance and how lack of acceptance can impact mental health. Pt and peers identified what makes acceptance challenging and pt completed a self-reflection exercise on what is hard to accept in pt's life. Pt accepted in discussion to process how not accepting can cause more harm. Group identified strategies to increase acceptance. Pt appeared to benefit from gaining insight and strategies to increase acceptance. Pt will continue IOP tx to continue use of healthy coping skills, increase confidence, and prevent decompensation.
--- NOTE | 2023-01-01 14:20 | BH.MDN ---
Multi-Disciplinary Note - Note 60-min Individual Time Started:: 12:00 Date: 01/01/23 Purpose of session/treatment goals addressed:: To work on challenging distorted thoughts of self and reinforce assertive communication skills. Another goal was to utilize calming skills in the moment. Eye Contact:: Good Motor Activity:: Restless Appearance:: Neat Speech:: Tangential, Rapid Mood:: Anxious Affect:: Congruent Thoughts:: Racing, Circular, No evidence of hallucinations/delusions noted Staff Interventions:: thought challenging, motivational interviewing, mindfulness skills, strengths perspective, goal setting Client Response:: Pt responded well to session, open to meeting with therapist. Pt has been working on not over-apologizing and pt was able to catch himself when he said sorry about his mood being low. Pt shared he feel asleep late last night and therefore took his medication late which made pt groggy. Pt reported he has been gaining a lot of valuable information and skills from IOP and that yesterday's group was very vulnerable. Pt is gaining awareness of his use of minimization, personalization, and disqualifying his positives. Pt is also increasing insight to the communication issues he is having with . Pt was receptive to gentle thought challenging during session and validation. Pt began feel anxious about his venting AEB pt reporting I don't want to paint my in a bad light. Pt reminded that even healthy relationships require adjustments to communication and pt is not selfish for asserting his needs and concerns. Pt was given homework to identify conversations he would like to have with his . Pt is also encouraged to continue working on catching his cognitive distortions. Risks/Concerns:: Pt denies any active suicidal ideations, plan, or intent as of 01/01/23. Pt continues to report thoughts of , but much less often than at admission. Progress Toward Goals/Plan:: Pt continues to make progress towards his tx goals AEB his consistent attendance, self-report of increased insight and use of coping skills, and reduction of DSM-5 symptoms at review. However, pt continues to struggle with ruminations, excessive guilt, negative self-talk, fatigue, and thoughts of . Pt still does not feel ready to return to work at the capacity he was prior to his worsening mental health. Pt will continue IOP tx to combat distorted thoughts, increase self-compassion, and improve daily functioning. Time Stopped:: 12:55
--- NOTE | 2023-01-04 09:00 | BH.SGPN.GN ---
Behaviors/Verbalizations/Mental Status: [] Eye contact is good. Motor activity is appropriate. Appearance is casual. Speech is Appropriate. Mood is euthymic. Affect is full. Thoughts are linear and logical. No evidence of psychosis. Reviewed daily check in sheet and no reports of suicidal ideations or intent. Client Response/Progress/Benefit: [] Pt was an active participant in group discussions. Attentive. Daily symptom tracker notes / for depression and irritability. Discussed his mental health wins which included spending time and connecting with support and completing self-care. Elaborated on why these were beneficial to his mental wellness. Shared guilt/regret he has regarding estranged daughters and how this impacts him emotionally. This month is especially difficult as their birthdays both fall in December. Benefited from group support, encouragement, and feedback. Will continue in IOP to maintain safety, prevent decompensation, and to stabilize mood. Narrative Note: []
--- NOTE | 2023-01-04 10:05 | BH.SGPN.GN ---
Behaviors/Verbalizations/Mental Status: []Pt alert and oriented, casually dressed and groomed. Eye contact good. Motor activity appropriate. Speech tangential. Affect congruent, mood anxious. Thoughts linear, logical, no signs of hallucinations or delusions. Client Response/Progress/Benefit: []Pt participated in group discussions. Active participant in experiential activity. Attentive during psychoeducation. Attentive as peers shared types of social supports which included; family, friends, PCP, mental health providers, support groups, pets, ourselves, community classes, etc. Attentive as group identified mental health benefits of social support but pt and peers also shared sometimes it seems like they cannot access support. Contributed as peers worked together to identify obstacles to utilizing support. Pt identified personal barriers as putting other?s comfort before his own, fear, and distortions. Benefited from increased awareness of mental health benefits of social support and obstacles that prevent one from utilizing support. Will continue IOP tx to reduce negative self-talk, improve self-compassion, and increase emotional regulation skills. Narrative Note: []
--- NOTE | 2023-01-04 11:10 | BH.SGPN.GN ---
Behaviors/Verbalizations/Mental Status: []Client alert and oriented, casually dressed and groomed. Eye contact good. Motor activity appropriate. Speech within normal limits. Affect congruent, mood euthymic. Thoughts linear, logical, no signs of hallucinations or delusions. Client Response/Progress/Benefit: []Client was an active participant throughout AEB contributing to discussion, providing personal examples, and taking notes. Client provided input during discussion on the types of support our supports can provide. Client able to identify current support system and barriers that get in the way of using supports by drawing out their own support net. Client reported after identifying what type of supports they receive; they gained awareness that they could benefit from more emotional supports. Client identified steps to achieve this by continuing to practice vulnerability and challenging himself to ask for help and communicate his emotional needs/wants. Client seemed to benefit from identifying the type of support client needs to work on improving. Client recommended to continue IOP tx to increase healthy coping, reduce anxiety and negative core beliefs, and increase overall functioning. Narrative Note: []
== END 2023-01-06 23:59 ==
LOC: BHIOP 08:20
PROVIDERS: PCP Family Medicine; Referring Provider Psychiatry & Neurology Psychiatry; Visit Provider Psychiatry & Neurology Psychiatry
DX: F31.81 Bipolar II disorder (principal); F43.10 Post-traumatic stress disorder, unspecified; F10.91 Alcohol use, unspecified, in remission
CPT/HCPCS: S9480; 90837; 90853

== ENCOUNTER 2023-01-07 08:10 | Outpatient (RCR) | payer MEDICARE, SELFPAY ==
--- NOTE | 2023-01-08 09:05 | BH.SGPN.GN ---
Behaviors/Verbalizations/Mental Status: []Pt alert and oriented, neatly dressed and groomed. Eye contact good. Motor activity appropriate. Speech within normal limits. Affect congruent, mood euthymic. Thoughts linear, logical, no signs of hallucinations or delusions. Reviewed pt?s symptom tracker, no risk for suicidal ideation, plan, or intent as of 01/08/23 Client Response/Progress/Benefit: []Pt responded well to session, providing support and receptive to feedback. Pt reports feeling confident this morning as pt feels his medication is working and he is functioning much better than he was. Pt also can see progress in his mood stability and ability to challenge his thought patterns. Pt shared his stressor today is that yesterday there was miscommunication about pt's medication which triggered panic. Pt stated instead of ruminating and shutting down, pt reached out to his supports and got it straightened out. Pt appeared to benefit from reflecting on his application of coping skills. Pt will continue IOP tx to promote mood stability, reinforce healthy coping skills, and improve self-confidence. Narrative Note: []
--- NOTE | 2023-01-08 10:10 | BH.SGPN.GN ---
Behaviors/Verbalizations/Mental Status: []Pt alert and oriented, casually dressed and groomed. Eye contact good. Motor activity appropriate. Speech within normal limits. Affect congruent, mood euthymic. Thoughts linear, logical, no signs of hallucinations or delusions. Client Response/Progress/Benefit: []Pt receptive to session AEB contributing to discussion, as well listening attentively to others, and taking notes. Worked with group to brainstorm the positive and negative aspects of stress on physical and mental health. Group did well to identify the benefits of stress as well as the impact of distress on performance, relationships, and mental health. Pt identified their personal top stressors as: finding his career calling, wanting to reconnect with spirituality, and relationship with daughters. Pt seemed to benefit from increased awareness of current stressors and impact stress has on mental health. Recommended to continue IOP tx to improve perspective, increase confidence, and prevent decompensation.
--- NOTE | 2023-01-08 11:10 | BH.SGPN.GN ---
Behaviors/Verbalizations/Mental Status: [] Eye contact is good. Motor activity is appropriate. Appearance is casual. Speech is Appropriate. Mood is euthymic. Affect is full. Thoughts are linear and logical. No evidence of psychosis. Client Response/Progress/Benefit: [] Pt was an active participant in group discussions. Active and engaged during experiential activity. Attentive during psychoeducation on the 4 A's of stress management (Avoid, Alter, Adapt, Accept). Along with peers pt was able to connect the experiential activity to the group topic of stress. Identified times during the activity in which she utilized in the moment stress management skills which included; utilizing others for support/help, identifying struggles and adapting, making necessary changes when needed, the importance of patience, taking a step back, breathing, reframing thoughts, and not ruminating or letting setbacks lead to giving up. Benefited from increased education on stress management strategies and practicing in the moment stress management skills. Will continue in IOP to maintain safety, prevent decompensation, and stabilize mood. Narrative Note: []
--- NOTE | 2023-01-09 09:00 | BH.SGPN.GN ---
Behaviors/Verbalizations/Mental Status: []Pt alert and oriented, casually dressed and groomed. Eye contact fair. Motor activity appropriate. Speech within normal limits. Affect congruent, mood sad. Thoughts linear, logical, no signs of hallucinations or delusions. Reviewed pt?s symptom tracker, no risk for suicidal ideation, plan, or intent. Client Response/Progress/Benefit: []Pt responded well to session, attentive and engaged. Patient stated he is having a hard time identifying a mental health positive because yesterday he found out one of his friends 24 old sons in a car accident. Client reported it is hard to highlight his wins when he can only imagine the pain his friend is going through right now. With support from group client able to recognize still important to identify own when this even when there is tragedy in the world. Client stated one of the ones is being able to work [id number] with his . Pt appeared to benefit from support from peers. Pt will continue IOP tx to increase confidence, challenge distorted thoughts, and prevent decompensation.
--- NOTE | 2023-01-09 11:10 | BH.SGPN.GN ---
Behaviors/Verbalizations/Mental Status: []Pt alert and oriented, neatly dressed and groomed. Eye contact good. Motor activity appropriate. Speech within normal limits. Affect congruent, mood euthymic and anxious. Thoughts linear, logical, no signs of hallucinations or delusions Client Response/Progress/Benefit: []Pt responded well to session AEB completing the resilience worksheet provided. Pt participated in the discussion and worked cooperatively with group to identify strategies to enhance each of the components discussed. Pt reports belief they already use resilience trait of??accepting that change is a part of living.? Pt shared this has helped him remain sober for 6 years. Pt stated they would like to continue to develop resilience trait of ?moving towards his goals? and being more assertive with his ideas. Pt seemed to benefit from discussing strategies for improving personal resilience and identifying resilience traits pt already possesses. Progress noted as pt has been consistently reporting improved mood stability. Will continue IOP tx to further improve mood stability, reduce negative thinking patterns, and increase self-compassion. Narrative Note: []
--- NOTE | 2023-01-09 12:09 | PCM.BH.PN_ITS ---
Progress Note Progress Note: History of Present Illness/Interim History: The patient is a 41-year-old male with a history of depression, anxiety and alcohol use disorder with a recent diagnosis of bipolar 2 disorder who is seen in follow-up at the [facility] behavioral health IOP program. I last saw the patient about 1 month ago. The patient still has not started the naltrexone but he is still considering starting it down the road in the future if he feels he needs it. He feels he is learning valuable skills in the IOP program and states that he is really enjoying and thriving in the program. Staff feels he is making progress and doing well in the program. His mood is better and he describes himself as much less depressed and his mood is more stable. He is compliant with Seroquel and finds that it has helped him and his energy level is still okay the next day although it does help him sleep at night. He is sleeping about 7 hours a night. He remains sober from alcohol for 6 years although he still has some cravings. He denies passive thoughts of . He denies any suicidal ideation. He also feels he is much less irritable now than he was before. He denies also homicidal ideation, plan for suicide, hallucinations or delusions. His children and remain protective of him from committing suicide as are his Buddhism beliefs. Seroquel 100 mg p.o. nightly (x5 weeks now); has not started naltrexone 50 mg p.o. daily. Current Psychiatric Medications: [] See above. Mental Status Examination: [] Patient is a 41-year-old male who is seen wearing a hat and has a scar from cleft palate surgery on his left upper lip. He has no psychomotor agitation or retardation and is casually dressed and groomed with good hygiene. He is ambulatory with a normal gait. Eye contact is good and speech is normal rate and rhythm and fluent with no pressure. He is cooperative and pleasant during the interview. Mood is depressed. Affect is full and normal. Thought process is goal-directed and organized. Thought content: There is no evidence of passive thoughts of , suicidal ideation, plan for suicide, homicidal ideation, hallucinations or delusions. Reality testing is intact. Intelligence is average. Judgment is intact. Insight is good. Impulsivity is moderate. Diagnoses: [] 1. Bipolar 2 disorder (currently depressed) 2. OCD (mild) 3. PTSD 4. Alcohol use disorder in full remission for over 6 years 5. Primary support and work issues Plan: [] The patient will continue the IOP program at [facility] as the structure, support, education and group therapy will hopefully prevent worsening of the patient's symptoms which might require hospitalization. He felt safe during the interview and if it anytime he does not feel safe he will let us know or go to the emergency room. The patient is given the option of increasing his Seroquel to 150 mg p.o. nightly to help ensure that it prevents any mood cycling. He does not wish to increase the Seroquel at this time but will think about it. He will continue to remain sober from all alcohol and drug use. He is still going to think about whether he wants to start naltrexone to reduce his alcohol cravings. He will continue to follow-up with his outpatient providers and I will see the patient in follow-up on a regular basis while he is in the IOP program.
--- NOTE | 2023-01-09 14:35 | BH.MDN ---
Multi-Disciplinary Note - Note 45-min Individual Time Started:: 12:10 Date: 01/09/23 Purpose of session/treatment goals addressed:: To review pt's progress, discuss discharge and aftercare, and increase self-awareness of pt's bipolar disorder. Eye Contact:: Good Motor Activity:: Appropriate Appearance:: Neat Speech:: Tangential Mood:: Euthymic Affect:: Full Thoughts:: Linear, Logical, No evidence of hallucinations/delusions noted Staff Interventions:: thought challenging, psychoeducation on: - bipolar disorder, CBT techniques, discharge planning, strengths perspective, other - reviewed handout from the bipolar workbook. Client Response:: Pt responded well to session, open to meeting with therapist. Pt shared he has been doing well and he has been consistent with his medication and goals. Pt stated his goal before he discharges IOP tx is to gain more awareness of what is normal and what are warning signs and symptoms of his bipolar disorder. Pt receptive to working on a worksheet from the bipolar workbook. Discussed symptoms/warning signs of felix and depression. Pt also gained insight to what was his baseline and his personality. For example, pt's warning sign for depression is isolation and felix is oversharing and being very social. Pt's baseline is being social, but still having time for himself and having healthy boundaries. Pt shared this helped him see that not every behavior and thought is a symptom. Pt encouraged to fill the rest out and discuss it with his . Pt is getting better with catching and replacing his distorted thought patterns. Pt also is apologizing less in sessions and during group. Risks/Concerns:: Pt denies any suicidal ideations, plan, or intent as of 01/09/23. Progress Toward Goals/Plan:: Pt continues to make progress towards his tx goals AEB pt's self-report of improved mood and functioning. Pt would like to continue to work on increasing self-awareness of his bipolar symptoms and combating distortions. Pt continues to cope with interpersonal relationship stressors with his two oldest daughters. Pt will continue IOP tx to further promote gains, reinforce self-compassion, and improve mood stability. Time Stopped:: 12:55
--- NOTE | 2023-01-10 09:10 | BH.SGPN.GN ---
Behaviors/Verbalizations/Mental Status: [] Eye contact is good. Motor activity is appropriate. Appearance is casual. Speech is Appropriate. Mood is euthymic. Affect is full. Thoughts are linear and logical. No evidence of psychosis. Reviewed daily check in sheet and no reports of suicidal ideations or intent. Client Response/Progress/Benefit: [] Pt was an active participant in group discussion. Attentive. Provided appropriate feedback. Emotion for today is hopeful. Pt shared recent mental health health wins. He discussed how the support and feedback from peers in the IOP has been very helpful and inspirational for him. He mentioned being very emotional yesterday and how he is learning to work thought emotions. Shared also that since his diagnosis of Bipolar in IOP it has been a journey of accepting that diagnosis and stigma associated with it. When he is happy or excited he is nervous he is getting manic and so is his . Feedback from peers in the group with Bipolar regarding identifying triggers to felix and what has helped them in the past. Benefited from group support, encouragement, and feedback. Will continue in IOP to maintain gains, prevent decompensation, and increase healthy coping skills. Narrative Note: []
--- NOTE | 2023-01-10 10:15 | BH.SGPN.GN ---
Behaviors/Verbalizations/Mental Status: []Pt alert and oriented, neatly dressed and groomed. Eye contact good. Motor activity appropriate. Speech within normal limits. Affect congruent, mood euthymic. Thoughts linear, logical, no signs of hallucinations or delusions. Client Response/Progress/Benefit: []Pt responded well to session AEB contributing to discussion, taking notes, and listening attentively to others. Group discussed the benefits of managed anger and anger as a secondary emotion. Pt shared perspective on personal benefits of anger as motivation for change and personal growth. Pt completed worksheet on anger triggers and personal warning signs of anger. Pt identified their biggest triggers as getting unwanted feedback, when his dogs bark, and when he feels dismissed. Appeared to benefit from increased knowledge of the anger cycle as well as personal triggers. Will continue IOP tx to promote mood stability, increase self-compassion, and reinforce healthy coping skills Narrative Note: []
--- NOTE | 2023-01-10 11:10 | BH.SGPN.GN ---
Behaviors/Verbalizations/Mental Status: []Client alert and oriented, casually dressed and groomed. Eye contact good. Motor activity appropriate. Speech within normal limits. Affect congruent, mood euthymic. Thoughts linear, logical, no signs of hallucinations or delusions. Client Response/Progress/Benefit: []Pt was engaged throughout AEB contributing to group discussion and self-reflection. Group finished processing cues to anger worksheet. Pt contributed as group brainstormed healthy coping skills for better managing anger which included: music, walking/exercise, taking a break, grounding tools, reflection, and journaling. Pt reported he would like to work on skills of meditation and opposite action to help manage anger responses. Pt appeared to benefit from identifying different techniques to manage anger as well as gaining awareness of potential consequences of unmanaged anger. Will continue IOP tx to increase confidence, challenge negative thoughts,, and prevent decompensation.
--- NOTE | 2023-01-16 09:00 | BH.SGPN.GN ---
Behaviors/Verbalizations/Mental Status: []Pt alert and oriented, neatly dressed and groomed. Eye contact good. Motor activity appropriate. Speech within normal limits-tangential but this is normal for pt. Affect congruent, mood grateful. Thoughts linear, logical, no signs of hallucinations or delusions. Reviewed pt?s symptom tracker, no risk for suicidal ideation, plan, or intent as of 01/16/23 Client Response/Progress/Benefit: []Pt responded well to session, attentive and providing supportive statements to peers. Pt reports feeling grateful and disappointed this morning. Pt shared he is grateful for all the progress he has made and the coping skills he has learned while in IOP. Pt shared he feels more capable to handle stress and communicate effectively. Pt's stressor today is his youngest daughter. Pt shared he was informed that she lied which resulted in another student getting in trouble. Pt plans to address with his daughter later at her therapy appointment. Pt appeared to benefit from reflecting on his growth and application of coping skills. Pt will continue IOP tx to promote mood stability and reinforce healthy coping skills. Narrative Note: []
--- NOTE | 2023-01-16 10:10 | BH.SGPN.GN ---
Behaviors/Verbalizations/Mental Status: [] Eye contact is good. Motor activity is appropriate. Appearance is casual. Speech is Appropriate. Mood is euthymic. Affect is congruent. Thoughts are linear and logical. No evidence of psychosis. Client Response/Progress/Benefit: [] Pt was an active participant in group discussions. Attentive during psychoeducation on the 4 communication styles (Passive, Passive-Aggressive, Aggressive, and Assertive) and the obstacles to effective communication. Contributed during interactive discussion on the benefits of communicating effectively which included; having one's needs met, helping others get their needs met, building connection with others, decreases stress and uncertainty, improved relationships, increased trust, and increased understanding of others. Worked well in small group in which pt and peers identified the benefits and disadvantages to the different communication styles. Benefited from increased understanding of communication styles and how these can impact effective communication. Will continue in IOP to prevent decompensation, maintain safety, stablize mood, and increase healthy coping skills. Narrative Note: []
--- NOTE | 2023-01-16 11:10 | BH.SGPN.GN ---
Behaviors/Verbalizations/Mental Status: [] Client alert and oriented, casually dressed and groomed. Eye contact good. Motor activity appropriate. Speech within normal limits. Affect congruent, mood euthymic. Thoughts linear, logical, no signs of hallucinations or delusions Client Response/Progress/Benefit: [] Client responded well to session AEB client listening attentively to others and providing input during group discussion. Client did well in the activity to be assertive and ask for feedback. Recognizes if group wasn't assertive in activity, they wouldn't have been successful. Discussed with group communication strategies used to make activity successful. Attentive during psychoeducation on interpersonal DBT skill COLEMAN. Client seemed to benefit from increasing awareness of healthy strategies to improve communication. Will continue IOP tx to promote use of healthy coping skills, increase assertiveness and confidence, and prevent decompensation.
--- NOTE | 2023-01-16 15:17 | BH.MDN_ITS ---
Multi-Disciplinary Note - Note 45-min Individual Time Started:: 12:25 Date: 01/16/23 Purpose of session/treatment goals addressed:: To address current stressors and discuss strategies to help cope with these stressors. Another goal was to discuss discharge and aftercare. Eye Contact:: Good Motor Activity:: Restless Appearance:: Neat Speech:: Rambling Mood:: Anxious, Irritable Affect:: Full Thoughts:: Racing, Circular, No evidence of hallucinations/delusions noted Staff Interventions:: thought challenging, CBT techniques, discharge planning, strengths perspective, goal setting Client Response:: Pt responded well to session, open to meeting with therapist. Pt reports he had a trying weekend as pt is figuring out how to approach and deal with his youngest daughter's behaviors recently. Pt shared his daughter has a habit of lying and she recently got another kid in trouble because of this. Pt verbally processed the frustration and stress he has been carrying around his daughter and how his ex- parents their daughter. Pt shared his ex- has a history of being neglectful with her own mental health which at times has impacted their daughter. Pt appeared to benefit from venting about his emotions and frustrations without judgement. Pt willing to talk with his daughter's field nurse case manager about a plan of care to help with these behaviors. Pt stated overall he is functioning well and he is proud of himself for following through with [facility]. Pt was given a therapist to call for outpatient counseling and pt feels he will be ready to discharge from IOP next week. Risks/Concerns:: Pt denies any suicidal ideations, plan, or intent. Progress Toward Goals/Plan:: Pt plans to discharge from [facility] tx next week on 01/21/23. Pt has stressors within his family, but overall pt feels much better and his mood is consistently more stable. Pt reports less anxiety, improved concentration, and better ability to manage emotions. Pt still struggles with negative thinking patterns that reinforce depression and anxiety, but he has improved significantly. Pt will continue IOP through the week to reinforce healthy coping skills, establish aftercare, and improve self-compassion. Time Stopped:: 13:05
--- NOTE | 2023-01-17 09:01 | BH.SGPN.GN ---
Behaviors/Verbalizations/Mental Status: []Pt alert and oriented, casually dressed and groomed. Eye contact good. Motor activity appropriate. Speech within normal limits. Affect congruent, mood euthymic and positive. Thoughts linear, logical, no signs of hallucinations or delusions. Reviewed pt?s symptom tracker, no risk for suicidal ideation, plan, or intent. Client Response/Progress/Benefit: []Pt responded well to session, attentive and receptive to feedback. Client shared mental positive as realizing it is okay for him to need mental health treatment despite having 6 years of sobriety. Client stated he has come to an acceptance that since being sober does not mean all of his problems were fixed. Client reported he finally is at a place in which she realizes he needed to be in IOP to help him truly thrive in life versus surviving. Client noted additional mental positive as being able to say out loud that he has bipolar 2 disorder. Client noted he has been struggling significantly with acceptance of this diagnosis but feels like he has come to terms with that and realizes it is okay. Client stated mental health stressor is trying to manage his own emotions and feelings of being out of control in regards to relationship with his daughters. Seemed to benefit from support from peers. Pt will continue IOP tx to promote mood stability, continue use of healthy coping skills,, and prevent decompensation.
--- NOTE | 2023-01-17 10:10 | BH.SGPN.GN ---
Behaviors/Verbalizations/Mental Status: [] Eye contact is good. Motor activity is appropriate. Appearance is casual. Speech is Appropriate. Mood is euthymic. Affect is full. Thoughts are linear and logical. No evidence of psychosis. Client Response/Progress/Benefit: [] Pt was an active participant in group discussions. Attentive during psychoeducation on stages of change. Participated during experiential activity. Interactive group discussion on why change is difficult in which group verbalized that change involves the unknown, is scary, leads to uncertainly, makes one feel vulnerable, leads to fear of failure, and challenges one's comfort zone. Pt states change is losing myself. Group discussion on how emotions such as loneliness, confusion, happy, frightened, hopeful, and guilt impact or prevent change. Benefited from increased awareness of stages of changes and how emotions impact change. Will continue in IOP to prevent decompensation, maintain gains, and increase healthy coping skills. Narrative Note: []
--- NOTE | 2023-01-17 11:10 | BH.SGPN.GN ---
Behaviors/Verbalizations/Mental Status: []Pt alert and oriented, neatly dressed and groomed. Eye contact good. Motor activity appropriate. Speech within normal limits. Affect congruent, mood euthymic. Thoughts linear, logical, no signs of hallucinations or delusions. Client Response/Progress/Benefit: []Pt responded well to session, attentive AEB participating in activity and actively engaging in group discussion. Group processed activity to relate the strategies used to overcome barriers in the activity to managing change in own life. Discussed and set SMART goal in group as it relates to change group members are wanting to make. Pt identified change they want as becoming more confident in his assertive communication. Identified being in the preparation/action stage. Pt stated to get to the action stage consistently, he needs to give himself more self-validation. Appeared to benefit from identifying a small goal to work towards. Pt will continue IOP tx to reinforce healthy coping skills and establish aftercare. ? Narrative Note: []
--- NOTE | 2023-01-18 09:00 | BH.SGPN.GN ---
Behaviors/Verbalizations/Mental Status: []Pt alert and oriented, casually dressed and groomed. Eye contact poor. Motor activity appropriate. Speech within normal limits. Affect congruent, mood euthymic and anxious. Thoughts linear, logical, no signs of hallucinations or delusions. Reviewed pt?s symptom tracker, no risk for suicidal ideation, plan, or intent. Client Response/Progress/Benefit: []Pt responded well to session, attentive and receptive to feedback. Client shared mental positive as taking time to encourage his to practice self-care while he took on cleaning responsibilities yesterday. Client shared feeling proud of himself for doing so. Reported additional mental positive as preparing to complete IOP tx on Saturday and reflected on areas of progress he has made. 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 Did well to identify self-care and boundary setting skill that will aid in his ability to manage his associated emotions. Seemed to benefit from support from peers. Pt will continue IOP tx to continue to promote use of healthy coping skills, challenge negative and anxious thinking, and prevent decompensation. Narrative Note: []
--- NOTE | 2023-01-18 10:10 | BH.SGPN.GN ---
Behaviors/Verbalizations/Mental Status: [] Eye contact is good. Motor activity is appropriate. Appearance is casual. Speech is Appropriate. Mood is euthymic. Affect is congruent. Thoughts are linear and logical. No evidence of psychosis. Client Response/Progress/Benefit: []Pt engaged participant AEB listening to others, engaging in activity, and providing feedback at times. Attentive during psychoeducation and provided insight into obstacles in the way of mental wellness. Pt stated in his current reality he feels like he has a lot of the skills, but is still working on integrating the skills together. In his desired reality he wants to be able to integrate all his skills and be able to use his skills more automatically. Identified barriers to his desired reality include: fear others don't trust that he will maintain progress, self-sabotage, fear won't have relationship with all his kids, medications, and not giving self time to develop. Benefited from taking look at current mental health state and obstacles for progress. Will continue in IOP to continue use of healthy coping skills, maintain gains, and prevent decompensation.
--- NOTE | 2023-01-18 11:15 | BH.SGPN.GN ---
Behaviors/Verbalizations/Mental Status: []Pt alert and oriented, neatly dressed and groomed. Eye contact good. Motor activity appropriate. Speech within normal limits. Affect congruent, mood euthymic. Thoughts linear, logical, no signs of hallucinations or delusions. Client Response/Progress/Benefit: []Pt an active participant, encouraging peers and contributed as group brainstormed ideas on how to cope with internal barriers that keep Pts stuck from moving towards goals. Able to identify barriers to desired reality. Worked with group to identify strategies to help overcome barriers. Identified personal barriers to desired reality. Pt wants to work on overcoming the barrier of feeling guilt when using assertive communication by continuing to be assertive despite the anxiety. Benefited from group by identifying obstacles and solutions to desired reality.? Pt to continue IOP tx for one more day to reinforce healthy coping skills and establish aftercare. ? Narrative Note: []
--- NOTE | 2023-01-21 09:05 | BH.SGPN.GN ---
Behaviors/Verbalizations/Mental Status: []Pt alert and oriented, neatly dressed and groomed. Eye contact good. Motor activity appropriate. Speech within normal limits. Affect congruent, mood euthymic. Thoughts linear, logical, no signs of hallucinations or delusions. Reviewed pt?s symptom tracker, no risk for suicidal ideation, plan, or intent as of 01/21/23 Client Response/Progress/Benefit: []Pt responded well to session, providing supportive statements. Pt reports feeling excited this morning as it is his last day of IOP tx. Pt reflected on his progress since starting IOP and he shared that he is in a much different head space than he was in his first week. Pt's mental health wins today include getting his aftercare set up, spending time with his stepson over the weekend, and overall feeling more positive. Pt's stressor is his daughter's mental health, but pt also is focusing on what is in his control. Pt appeared to benefit from peer feedback. Pt will discharge from IOP tx today as pt has accomplished his tx goals and no longer meets criteria for IOP level of care. Narrative Note: []
--- NOTE | 2023-01-21 10:10 | BH.SGPN.GN ---
Behaviors/Verbalizations/Mental Status: [] Eye contact is good. Motor activity is appropriate. Appearance is casual. Speech is Appropriate. Mood is euthymic. Affect is congruent. Thoughts are linear and logical. No evidence of psychosis. Client Response/Progress/Benefit: [] Client was an active participant during interactive group discussions. Attentive during psychoeducation on the six types of boundaries (physical, emotional, intellectual, sexual, time, and material) AEB note-taking and giving input in group. Along with peers contributed to interactive discussion on defining what a boundary is in mental health. Client along with peers identified challenges to setting boundaries which included; fear of hurting others, lack of confidence, not wanting confrontation, fear of upsetting others, and etc. Client along with peers identified the benefits to setting boundaries such as better mental health, increase self respect, increased time for self-care, and increased confidence. Client discussed personal experiences with setting boundaries and shared with group benefits he gained when setting healthy boundaries. Group discussed the mental health benefits to establishing boundaries at work, school, and home. Client benefited from increased awareness and insight on the importance/benefit to setting health boundaries. Client has made satisfactory progress towards mental health goals and is expected to discharge today. Narrative Note: []
--- NOTE | 2023-01-21 11:15 | BH.SGPN.GN ---
Behaviors/Verbalizations/Mental Status: [] Eye contact is good. Motor activity is appropriate. Appearance is casual. Speech is Appropriate. Mood is euthymic. Affect is congruent. Thoughts are linear and logical. No evidence of psychosis. Client Response/Progress/Benefit: [] Client responded well to session AEB listening attentively to peers, providing some input, as well as taking notes throughout. Group discussed the different types of boundary styles. Reports connecting most with porous style of boundary setting with indicating that he has been getting more flexible lately. Participated in group discussion brainstorming various strategies for improving healthy boundary setting. Client reports wanting to work more on respecting others and their own boundaries to improve overall ability to establish and maintain healthy boundaries. Seemed to benefit from increased awareness of how different boundary styles can impact mental health. Client has made satisfactory progress while in program and is expected to discharge today. Narrative Note: []
--- NOTE | 2023-01-21 11:56 | BH.IGGP_ITS ---
Aftercare Plan - Demographics Treatment End Date:: 01/21/23 Psychiatrist:: Sidra Hall Psychiatrist Office #:: [id number] [facility] [place] Therapist:: Janice Lazo Therapist Phone #:: [phone] - Plan Details Progress/Aftercare Plan Details:: Dorian has made significant strides since starting IOP as shown by his reduced symptoms, ability to challenge distortions, and overall increased ability to manage emotions and stressors. When Dorian started IOP, he was severely depressed. Dorian was isolating, struggling with self-care, and was feeling hopeless. Now, Dorian is actively using healthy coping skills, practicing self-care, challenging negative thoughts, and using the awareness he has gained to manage his emotions. Dorian contributed to group discussions, offered emotional support to peers, and consistently followed through with his goals. In individual sessions, Dorian was receptive to feedback, consistent with homework, and willing to push himself. Dorian?s DSM- 5 scores for depression decreased by 100%, anger decreased by 100%, and anxiety decreased by 100%. Dorian?s biggest progress was increasing his comfort level at [facility] which helped his open up to peers and be more vulnerable with discussing his emotions. Strategies for Success:: 1. Opposite action! continue using this skill when you want to isolate, avoid, run, lash out, or hide. 2. Self-care. Play piano, make music, relax, go out or stay in, continue to set boundaries, and SPEAK KINDLY TO YOURSELF. 3. Challenge distortions. Remember that thoughts are thoughts not facts. Challenge yourself to give yourself credit rather than minimizing. 4. Communicate with supports even though it is hard. 5. Continue to stay social, it has helped so much. 6. Self-compassion. You are just as worthy as anyone else of compassion, understanding, and nuzhat. Never forget that. 7. Remember setbacks happen, but that does not mean progress is erased. 8. Keep writing and using your creative brain. 9. Keep up with therapy and review your binder. 10. Keep working on small steps! You got this! - Appointments Appointments/Referrals to Other Services:: 1. Dr. Gutierrez 2. [facility] aftercare starting on 01/24/23 from 2:00pm-3:30pm James Sands at [facility] - Medications Home Medications: Home Medications naltrexone 50 mg tablet 50 mg PO DAILY 30 days #30 tabs 12/05/22 buspirone 10 mg tablet 10 mg PO BID 12/12/22 quetiapine 100 mg tablet (Seroquel) 100 mg PO QHS #30 tabs 01/09/23
--- NOTE | 2023-01-21 14:14 | BH.DS ---
Discharge Summary - Demographics Date of Admission:: 12/04/22 Discharge Date: 01/21/23 Presenting Problems at Admission:: Pt is a 41 year-old man with a history of alcohol use disorder, in full remission, and bipolar II disorder. Pt was referred to [facility] by his outpatient therapist due to worsening symptoms of depression, suicidal ideations, and anxiety that were impacting pt's functioning. Pt shared his symptoms have been worsening over the past year and that it is beginning to impact pt's work. At admission, pt endorsed ruminations, fleeting suicidal ideations, lack of self-care, lack of appetite, hopelessness, worthlessness, and excessive guilt. Pt also reported poor sleep, vivid dreams, and difficulty concentrating. Discharge Diagnoses:: Bipolar 2 disorder, most recent episode depressed without psychosis F31.81; OCD tendencies; PTSD; Alcohol use disorder in full remission (6 years sober). Reason for Discharge:: Pt has accomplished his tx goals AEB his 100% symptom reduction and his self-report of improved mood stability and functioning. Pt will continue with outpatient counseling and IOP aftercare. - Treatment Progress During Treatment & Response: Pt has made significant strides since starting IOP as shown by his reduced symptoms, ability to challenge distortions, and overall increased ability to manage emotions and stressors. When Pt started IOP, he was severely depressed. Pt was isolating, struggling with self-care, and was feeling hopeless. Now, Pt is actively using healthy coping skills, practicing self-care, challenging negative thoughts, and using the awareness he has gained to manage his emotions. Pt contributed to group discussions, offered emotional support to peers, and consistently followed through with his goals. In individual sessions, Pt was receptive to feedback, consistent with homework, and willing to push himself. Pt?s DSM-5 scores for depression decreased by 100%, anger decreased by 100%, and anxiety decreased by 100%. Pt?s biggest progress was increasing his comfort level at IOP which helped his open up to peers and be more vulnerable with discussing his emotions. Issues Still to be Addressed:: Pt can benefit from continuing to work on self-confidence, thought challenging, assertive communication, and emotional regulation skills. Discharge Recommendations/Instructions:: Pt will follow up with Dr. Gutierrez for psychiatric medication management. Pt sees Dr. Gutierrez on 01/20/23. Pt will begin IOP aftercare on 01/24/23. Pt will call [facility] today to get scheduled for individual counseling. Pt also has Leah Rhodes at [facility] for AoD counseling, but he has not seen her since starting IOP tx. Discharge Handout: Complete Discharge Handout with client on aftercare options and continuity of care.
== END 2023-01-21 12:19 | disposition home or self-care (01) ==
LOC: BHIOP 08:10
PROVIDERS: PCP Family Medicine; Referring Provider Psychiatry & Neurology Psychiatry; Visit Provider Psychiatry & Neurology Psychiatry
DX: F31.81 Bipolar II disorder (principal); F43.10 Post-traumatic stress disorder, unspecified; F10.91 Alcohol use, unspecified, in remission
CPT/HCPCS: S9480; 90834; 90853

== ENCOUNTER 2023-01-31 14:20 | Outpatient (RCR) | payer MEDICARE, SELFPAY ==
--- NOTE | 2023-01-31 14:30 | BH.COMM ---
Communication Note - Communication with Client Communication Note: Patient completed IOP and presents today to start relapse prevention group which meets once weekly (1.5 hours) for 8 weeks. Case discussed with Dr. Figueroa with plan to admit with dx of F31.81
--- NOTE | 2023-01-31 17:36 | BH.MTP ---
Master Treatment Plan - Patient Information Program Physician:: Dr. Sidra Hall Primary Therapist:: Janice CASTAÑEDA - Psychiatric Diagnoses Psychiatric Diagnoses:: Bipolar 2 disorder, most recent episode depressed without psychosis F31.81; OCD tendencies; PTSD; Alcohol use disorder in full remission (6 years sober). Diagnosis Code(s):: F 31.81 - Estimated LOS Estimated LOS (in weeks):: 8 Problem/Goal #1 - Problem/Goal #1 Stated Goal:: client will maintain or see a reduction in symptoms AEB client score on the DSM 5 cross-cutting measure and improve client's daily functioning. - Objectives Objective #1 Stated Objective: Client will continue to consistently apply healthy coping skills to maintain progress made in IOP tx. Interventions: Through group therapy, client will review warning signs and triggers as well as healthy coping skills learned in IOP tx to successfully maintain gains while transitioning into outpatient therapy. Discharge Criteria: Client will have accomplished this goal when client's score on the DSM-5 cross-cutting measure has maintained or reduced over a 8 week period. Target Date: 03/28/23 Review Date: 02/28/23 Status: open Objective #2 Stated Objective: Client will learn and utilize 2-3 maintenance strategies to prevent decompensation from original IOP DSM-5 scores. Interventions: Through group therapy, client will be provided with education on healthy maintenance behaviors, relapse prevention techniques, and healthy coping strategies. Discharge Criteria: Client will have accomplished this goal when can report using at least 2 maintenance skills to prevent decompensation compared to original IOP DSM-5 scores Target Date: 03/28/23 Review Date: 02/28/23 Status: open
== END 2023-02-06 23:59 ==
LOC: BHOG 14:20
PROVIDERS: PCP Family Medicine; Referring Provider Psychiatry & Neurology Psychiatry; Visit Provider Psychiatry & Neurology Psychiatry
DX: F31.81 Bipolar II disorder (principal); F43.10 Post-traumatic stress disorder, unspecified; F10.91 Alcohol use, unspecified, in remission; F60.5 Obsessive-compulsive personality disorder
CPT/HCPCS: 90853

== ENCOUNTER 2023-02-07 07:36 | Outpatient (RCR) | payer MEDICARE, MEDICAID, SELFPAY ==
--- NOTE | 2023-02-14 14:00 | BH.SGPN.GN ---
Behaviors/Verbalizations/Mental Status: []Pt alert and oriented, casually dressed and groomed. Eye contact good. Motor activity appropriate. Speech within normal limits. Affect congruent, mood calm. Thoughts linear, logical, no signs of hallucinations or delusions. Client Response/Progress/Benefit: []Pt responded well to session, Pt reports they see their therapist next week and they are taking their medication consistently. Pt shared they have been using humor, assertive communication, and thought challenging to manage current stressors. Pt completed homework from last session on self-love. Pt engaged well during the discussion of the components of self-compassion. Pt connected with the benefits of self-compassion and participated in the activity of reframing an example setback using self-compassion Pt worked with peers in small groups to practice reframing using self-compassion and for homework pt will use the same technique for their own experience. Pt appeared to benefit from practicing self-compassion and connecting with peers. Will continue aftercare to promote mood stability and reinforce healthy coping skills. Narrative Note: []
--- NOTE | 2023-02-14 16:17 | BH.TPR ---
Treatment Plan Review Demographics Date of Admission:: 01/24/23 Date of Treatment Plan Review:: 02/14/23 Admitting Diagnoses:: Bipolar 2 disorder, most recent episode depressed without psychosis F31.81; OCD tendencies; PTSD; Alcohol use disorder in full remission (6 years sober). Current Diagnoses:: Bipolar 2 disorder, most recent episode depressed without psychosis F31.81; OCD tendencies; PTSD; Alcohol use disorder in full remission (6 years sober). Patient Status Patient's Response to Treatment:: Pt continues to respond well to treatment AEB pt's consistent attendance, ongoing attentiveness and engagement in group discussions, and continued reporting use of skills outside treatment environment. Status of Current Problems and Symptoms: Pt continues to report stressors with his children and work. Pt endorses mild mood instability and reports needing to get his medication changed due to issues with sleep. Pt also has not yet established with outpatient counseling, but pt is working on this. Progress Problem #1: Problem Name:: Pt will maintain or see a reduction in sx Status of Goals:: Obj 1 ? complete per pt report. Pt did not fill out the DSM-5, but he is reporting his symptoms for felix, depression, and anxiety continue to be mild. Pt has expressed concern with fatigue and pt is talking with his psychiatrist, Dr. Gutierrez, about medication adjustments. Obj 2 - complete with ongoing work encouraged. Pt had been reporting using positive affirmations, music, assertive communication, self-care, and grounding skills. Team Recommendations:: Recommended client continue IOP aftercare group in addition to attending regular outpatient counseling in order to maintain gains.
--- NOTE | 2023-02-28 14:00 | BH.SGPN.GN ---
Behaviors/Verbalizations/Mental Status: []Pt alert and oriented, neatly dressed and groomed. Eye contact good. Motor activity appropriate. Speech within normal limits. Affect congruent, mood euthymic. Thoughts scattered, no signs of hallucinations or delusions. Client Response/Progress/Benefit: []Pt responded well to session, attentive and engaged. Pt reports he had an initial appointment with a therapist, but it did not go well so pt wants to change providers. Pt recently had a medication change and pt is consistent with taking his medications. Pt reports he has been using opposite action, assertive communication, and affirmational statements to cope with stressors. Pt participated in discussion of personal values and why knowing these can be helpful to one's mental health. The group also discussed what could happen if one does not live according to their values. Pt identified his top two values as intimate relationships and personal growth. Pt set a goal to continue to practice being assertive and having more meaningful conversations with his . Pt will continue IOP aftercare to promote mood stability and gains made in IOP. Narrative Note: []
--- NOTE | 2023-03-07 16:21 | BH.DS ---
Discharge Summary Demographics Date of Admission:: 01/24/23 Discharge Date: 03/07/23 Presenting Problems at Admission:: Pt discharged from IOP tx and transitioned to [facility] aftercare to maintain gains pt made in IOP and to reinforce healthy coping skills. At admission to [facility] aftercare, pt continued to report symptoms of depression, anxiety, and irritability but of reduced intensity and frequency. Pt also was experiencing stress from his relationships, work, and his children's mental health. Discharge Diagnoses:: Bipolar 2 disorder, most recent episode depressed without psychosis F31.81; OCD tendencies; PTSD; Alcohol use disorder in full remission (6 years sober). Reason for Discharge:: Pt was admitted to [facility] for medical reasons and had emergency surgery. Pt will not be able to return to [facility] aftercare due to his medical recover. Prior to this, pt was maintaining progress from IOP. Treatment Progress During Treatment & Response: Pt was demonstrating progress towards his tx goals and was reporting ability to manage stressors. Pt was taking his medications consistently and he was actively using healthy coping skills. Pt had also returned to work and was functioning better at home. Issues Still to be Addressed:: Pt can benefit from ongoing counseling focused on self-confidence, self-compassion, assertive communication, emotional regulation, and alcohol recovery. Pt can also benefit from continuing to challenge distortions and negative core beliefs. Discharge Recommendations/Instructions:: Pt will continue seeing Dr. Gutierrez for medication management. Pt will also continue with Mal[facility] Ricardo for outpatient mental health counseling. Pt is encouraged to follow instructions for medical recovery. Discharge Handout
== END 2023-03-08 23:59 ==
LOC: BHOG 07:36
PROVIDERS: PCP Family Medicine; Referring Provider Psychiatry & Neurology Psychiatry; Visit Provider Psychiatry & Neurology Psychiatry
DX: F31.81 Bipolar II disorder (principal); F42.9 Obsessive-compulsive disorder, unspecified; F43.10 Post-traumatic stress disorder, unspecified; F10.91 Alcohol use, unspecified, in remission
CPT/HCPCS: 90853

== ENCOUNTER 2023-03-10 04:41 | Inpatient (IN) | payer MEDICARE, SELFPAY ==
[2023-03-10] VITALS (8 sets, daily range): BP systolic 103–130; BP diastolic 71–92; PULSE 88–105; RESP 16–24; TEMP 35.8–38.6; O2SAT 92–99; BMI 25.0; BMI 24.5
--- NOTE | 2023-03-10 05:29 | EDS_ITS ---
HPI HPI - GI History of Present Illness Chief Complaint: Abd Pain Informant: patient Abdominal Pain/Flank Pain Onset: Today Context: Sudden Onset Timing: Continuous Quality: Aching, Burning and Cramping Location: Epigastric Worsened by: Nothing Relieved by: Nothing Nausea/Vomiting/Emesis GI Symptom: Positive for Nausea and Vomiting Onset: Today Quality: Positive for Nonbilious; Negative for Blood streaks, Coffee ground or Hematemesis Diarrhea/Melena/Hematochezia GI Symptom: Negative for Diarrhea, Melena or Hematochezia Associated Symptoms Associated Symptoms: Negative for Dysuria, Frequency or Hematuria Narrative Narrative: Patient presents with abdominal pain that began this morning. Patient states the pain began suddenly. Patient states the pain is mainly over the epigastric area. Patient states it is burning, cramping, sharp, and aching. Patient states nothing makes it better and nothing makes it worse. Patient admits to some nausea and vomiting. Patient denies any hematemesis or coffee-ground emesis. Patient denies any diarrhea, melena, or hematochezia. Patient denies any dysuria, frequency, or hematuria. Patient states his pain feels similar to pain he had with a bowel obstruction when he was a teenager. [facility] Medical History (Updated 03/11/23 @ 02:[address] Carlitos Peterson, ) Alcohol abuse Alcohol use disorder Bipolar II disorder Depression with anxiety GERD (gastroesophageal reflux disease) Heart murmur Hiatal hernia History of cleft palate Injury of head and neck Lab test negative for COVID-19 virus Migraine OCD (obsessive compulsive disorder) PTSD (post-traumatic stress disorder) Recovering alcoholic Restless legs Home Medications buspirone 10 mg tablet 10 mg PO BID #60 tabs 01/22/23 [Rx Last Taken Unknown] quetiapine 150 mg tablet 150 mg PO QHS #30 tabs 03/06/23 [Rx Last Taken Unknown] Allergy/AdvReac Type Severity Reaction Status Date / Time adhesive Allergy Rash Verified 03/10/23 04:42 Opioids - Morphine Analogues AdvReac Other Verified 03/10/23 06:43 Family History Father Alcoholism Mother Alcoholism Cancer lung Grandfather Alcoholism Grandmother Alcoholism Surgical History History of intestinal surgery History of placement of ear tubes History of repair of congenital cleft palate Hx of eye surgery Social History Smoking Status: Current every day smoker tobacco type: cigarettes Tobacco: How many years used: 12 alcohol intake: former substance use type: does not use what type of physical activity do you participate in: weight training ROS ROS ED Constitutional Constitutional ED: Denies chills or fever(s) Eyes Eyes: Denies blurry vision or change in vision ENT ENT ED: Denies rhinorrhea or sore throat Cardiovascular Cardiovascular: Denies chest pain or palpitations Respiratory/Chest Respiratory/Chest: Denies cough or dyspnea Gastrointestinal Gastrointestinal: Reports abdominal pain, nausea and vomiting Genitourinary Genitourinary ED: Denies dysuria or hematuria Musculoskeletal Musculoskeletal: Denies back pain or neck pain Integumentary Denies abscess or rash Neurologic Neurologic: Denies headache(s) or weakness Allergic/Immunologic Allergic/Immunologic ED: Denies mouth swelling or urticaria EXAM Physical Exam Const Vital Signs: 03/10/23 04:43 03/10/23 06:50 03/10/23 09:38 Temperature 96.4 F L Temperature Source Temporal Pulse Rate 92 99 98 Respiratory Rate 24 H 18 16 Blood Pressure 130/92 H 104/71 117/80 Blood Pressure Mean 104 82 92 Pulse Ox 99 99 92 Oxygen Delivery Method Room Air Positive well nourished and well developed General Appearance ED: well developed HEENT Reports moist mucous membranes Neck supple and no JVD Resp normal respiratory effort and clear to auscultation bilaterally Cardio regular rate and regular rhythm GI normal to inspection, nondistended, normoactive bowel sounds Palpation: soft and tender epigastric, LLQ, RLQ, LUQ, RUQ, periumbilical and suprapubic; Negative for guarding or rebound tenderness present Extremity normal to inspection General Extremety ED: Negative for edema or tenderness General Extremity: Negative for edema Neuro oriented x3, CN's II-XII intact bilaterally and no sensory deficits noted Sensorium / Orientation: alert Motor Exam: strength 5/5 throughout Psych Mood & Affect: anxious Skin no rashes or lesions noted MDM MDM MDM Narrative Medical decision making narrative: Differential diagnosis includes bowel obstruction, pancreatitis, gastritis, peptic ulcer disease, bowel perforation, cholecystitis, cholelithiasis, pyelonephritis, and urinary tract infection CBC will be obtained to assess for leukocytosis and anemia. Comprehensive metabolic profile will be obtained to assess for hepatic function, renal function, and electrolyte abnormality. Lipa se will be obtained to assess for pancreatitis. Urinalysis will be obtained to assess for urinary tract infection and pyelonephritis. CT scan of the abdomen pelvis will be obtained to assess for bowel obstruction and perforation. Lab Data Attestation: I reviewed the patient's lab results. Lab results narrative: CBC was reviewed. Hemoglobin was elevated at 17.3. The remainder was within normal limits. Comprehensive metabolic profile was reviewed. BUN was slightly increased at 19. Glucose was 113. The remainder was within normal limits. Lipase was reviewed and was normal at 29. Urinalysis was reviewed. There is no evidence of urinary tract infection or hematuria. Labs: Laboratory Results - last 24 hr 03/10/23 03/10/23 04:50 07:36 WBC 10.6 RBC 5.50 Hgb 17.3 H Hct 53.2 MCV 96.7 H MCH 31.5 MCHC 32.5 RDW Std Deviation 45.3 H RDW Coeff of [place] 12.5 Plt Count 220 MPV 10.9 Immature Gran % (Auto) 0.300 Neut % (Auto) 75.8 H Lymph % (Auto) 17.9 L [place] % (Auto) 2.9 Eos % (Auto) 2.8 Baso % (Auto) 0.3 Absolute Neuts (auto) 8.1 H Absolute Lymphs (auto) 1.90 Nucleated RBC % 0 Sodium 142 Potassium 4.1 Chloride 109 H Carbon Dioxide 26.0 Anion Gap 7 BUN 19 H Creatinine 1.27 Estim Creat Clear Calc 71.81 Est GFR (MDRD) Af Amer 79 Est GFR (MDRD) Non-Af 65 BUN/Creatinine Ratio 15.0 Glucose 113 H Calcium 9.5 Total Bilirubin 0.60 AST 22 ALT 21 Alkaline Phosphatase 67 Total Protein 7.6 Albumin 4.2 Globulin 3.4 Albumin/Globulin Ratio 1.2 Lipase 29 Urine Color Yellow Urine Clarity Clear Urine pH 6.5 Ur Specific [place] 1.015 Urine Protein 15 H Urine Glucose (UA) Normal Urine Ketones 50 H Urine Occult Blood Negative Urine Nitrite Negative Urine Bilirubin Negative Urine Urobilinogen Normal Ur Leukocyte Esterase Negative Urine RBC 0 SEEN Urine WBC 0 SEEN Ur Squamous Epith Cells 0 SEEN Urine Bacteria 0 SEEN Urine Mucus 0 SEEN Radiography Diagnostic Testing: Clinical Impression(s) from Imaging Studies Abdomen/Pelvis CT 03/10/23 05:38 IMPRESSION: 1. Small bowel obstruction possibly related to anastomotic stricture located within the right lower quadrant. 2. Right hydronephrosis and evidence of right renal cortical loss possibly related to chronic UP junction obstruction. 3. Right nephrolithiasis. Electronically Signed: Prudencio Welch MD at 7:41 EDT , KUB X-Ray 03/10/23 08:07 IMPRESSION: Recommend further advancing the endogastric tube. As above. Electronically Signed: Prudencio Welch MD at 10:14 EDT , CT scan of the abdomen pelvis was obtained. There is a small bowel obstruction possibly related to stricture in the right lower quadrant. There is right hydronephrosis. There is right nephrolithiasis. This was interpreted by the radiologist and was also independently reviewed by myself. Treatment and Re-Evaluation :: Patient was given IV fluids, Bentyl, and Zofran. Patient was advised of his findings. Patient was given a repeat dose of morphine. Patient was advised of the need for nasogastric tube placement. Patient is agreeable with this. Case was discussed with Dr. Mcnulty. He will be in to evaluate the patient. Patient understood and was agreeable with the plan. All questions were answered. Discharge Plan Dx/Rx/DC Orders Clinical Impression: SBO (small bowel obstruction), Abdominal pain Disposition Disposition: Acute Care Hospital [facility] Discharge Date/Time: 03/10/23 11:37
--- NOTE | 2023-03-10 05:38 | CT_ITS ---
EXAM: CT ABDOMEN AND PELVIS WITH INTRAVENOUS CONTRAST CLINICAL INDICATION: Abdominal pain -- IV PO Contrast TECHNIQUE: Helically acquired images were obtained of the abdomen and pelvis with intravenous contrast. This CT exam was performed using one or more of the following dose reduction techniques: automated exposure control, adjustment of the mA and/or kV according to patient size, and/or use of iterative reconstruction technique. CONTRAST: Oral and amp; IV Gastrografin and amp; 100mL Isovue-300 COMPARISON: No relevant prior studies available. FINDINGS: LOWER THORAX: Peripheral density right lower lobe which may represent infiltrate or atelectasis. Small sliding hiatal hernia. ABDOMEN: LIVER: Normal. Homogeneous. No focal mass. PANCREAS: Normal. No focal cystic or solid mass. SPLEEN: Normal. Normal size without focal cystic or solid mass. ADRENALS: Normal. No nodules. KIDNEYS AND URETERS: Moderate right hydronephrosis noted associated with cortical loss of the right kidney particularly within the lower pole. There appears to be a surgical clip. Findings may be related to chronic UP junction obstruction. Small stones are present within the right renal calyces. Simple 15 mm left renal cyst. STOMACH AND BOWEL: Multiple dilated loops of small bowel noted with transition to nondistended small bowel within the right lower quadrant at the level of surgical anastomosis. Pattern is consistent with small bowel obstruction possibly related to anastomotic stricture. PELVIS: APPENDIX: Appendix is not visualized. BLADDER: Normal. REPRODUCTIVE: Unremarkable as visualized. No mass. ABDOMEN and PELVIS: INTRAPERITONEAL SPACE: Normal. No ascites or other fluid collection. No free air. BONES/JOINTS: No suspicious lytic or blastic abnormality. SOFT TISSUES: Normal. No discrete abdominal or pelvic wall hernia. VASCULATURE: Normal. Abdominal aorta is non-dilated. LYMPH NODES: Normal. No enlarged lymph nodes. CT/Abdomen/Pelvis WITH Contrast IMPRESSION: 1. Small bowel obstruction possibly related to anastomotic stricture located within the right lower quadrant. 2. Right hydronephrosis and evidence of right renal cortical loss possibly related to chronic UP junction obstruction. 3. Right nephrolithiasis. Electronically Signed: Prudencio Welch MD at 7:41 EDT ,
[2023-03-10 05:45] LABS: Absolute Neutrophil Count 8.1 X10^3/uL (2.0-7.7); Basophil# 0.03 X10^3/uL; Basophil% 0.3 % (0-1); Eosinophils% 2.8 % (0-5); Hematocrit 53.2 % (40-54); Hemoglobin 17.3 g/dL (13.0-16.5); Lymphocyte % 17.9 % (19-41); Mean Corp Hgb Conc 32.5 g/dL (32-36); Mean Corpuscular Hgb 31.5 pg (27.0-32.0); Mean Corpuscular Volume 96.7 fL (80-94); Mean Platelet Vol. 10.9 fl (6.2-12.0); Monocyte# 0.31 X10^3/uL; Monocyte% 2.9 % (0-10); NRBC Flagged by Analyzer 0 % (0-5); Neutrophil # 8.05 X10^3/uL (2.7-7.7); Neutrophil % 75.8 % (47-70); Platelet Count 220 K/mm3 (150-450); RBC Distribution Width CV 12.5 % (11.6-14.6); RBC Distribution Width SD 45.3 fl (35.1-43.9); White Blood Count 10.6 K/mm3 (4.4-11.0)
[2023-03-10] MEDS: 0.9% Normal Saline 1,000 ML 1000 ML IV (05:45)
[2023-03-10] MEDS: Dicyclomine 20 MG/2 ML Vial IM (05:45)
[2023-03-10] MEDS: Ondansetron 4 MG/2 ML Vial IV (05:45)
[2023-03-10 06:08] LABS: ALB/GLOB Ratio 1.2 RATIO (0.9-2.4); AST(SGOT) 22 U/L (15-37); Alanine Aminotransfer ALT/SGPT 21 U/L (16-61); Albumin, Serum 4.2 g/dL (3.2-5.0); Alkaline Phosphatase 67 U/L (45-117); Anion Gap 7 (5-15); BUN 19 mg/dL (7-18); Calcium,Total 9.5 mg/dL (8.5-10.1); Chloride 109 mmol/L (98-107); Creatinine, Serum 1.27 mg/dL (0.70-1.30); EST Glomerular Filtration Rate 65 mL/min (>60); Est Glom Filt Rate - Afr Amer 79 mL/min (>60); Estimated Creatinine Clearance 71.81 ml/min; Globulin 3.4 g/dL (2.2-4.2); Glucose 113 mg/dL (74-106); Lipase 29 U/L (13-75); Potassium 4.1 mmol/L (3.5-5.1); Protein, Total 7.6 g/dL (6.4-8.2); Sodium Level 142 mmol/L (136-145)
[2023-03-10] MEDS: Metoclopramide 10 MG/2 ML Vial IV (06:40)
[2023-03-10] MEDS: Morphine 4 MG/ML Syringe IV ×4 (06:47→19:07)
[2023-03-10 07:42] LABS: Bacteria 0 SEEN /hpf (None Seen); Mucous, Urine 0 SEEN /hpf (<or=2+); Red Blood Cells-Urine 0 SEEN /hpf (0-5); Squamous Epithelial Cells - UA 0 SEEN /hpf (0-5); White Blood Cells 0 SEEN /hpf (0-5)
--- NOTE | 2023-03-10 08:07 | RAD_ITS ---
EXAM: XR ABDOMEN, 1 VIEW CLINICAL INDICATION: NG Insertion TECHNIQUE: Frontal supine view of the abdomen/pelvis. COMPARISON: No relevant prior studies available. FINDINGS: GASTROINTESTINAL TRACT: Incomplete evaluation of the bowel. ORGANS: Contrast material noted within the renal collecting system with right-sided hydronephrosis. 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 BONES/JOINTS: No acute abnormality. TUBES, LINES AND DEVICES: Endogastric tube extends into the proximal stomach with proximal sidehole at the level of the distal esophagus. Recommend further insertion of the catheter. RAD/Abdomen Single View (Portable) IMPRESSION: Recommend further advancing the endogastric tube. As above. Electronically Signed: Prudencio Welch MD at 10:14 EDT ,
[2023-03-10] MEDS: Oxymetazoline 0.05% 1 SPRAY SPRAY.BTL 2 SPRAY NASAL (08:15)
[2023-03-10 08:19] LABS: Color, Urine Yellow (Yellow); Glucose, Dipstick Normal (Normal); Ketone-Dipstick 50 mg/dl (Negative); Leukocyte Esterase-Dipstick Negative /ul (Negative); Nitrite-Dipstick Negative (Negative); Occult Blood-Urine Negative /ul (Negative); Protein-Dipstick 15 mg/dl (Negative); Specific Gravity, Urine 1.015 (1.002-1.030); Urine Bilirubin Dipstick Negative (Negative); Urine Clarity Clear (Clear); Urine Urobilinogen Normal (Normal); Urine pH 6.5 (5.0 - 8.0)
--- NOTE | 2023-03-10 09:03 | ED.RN ---
Patient tolerated NG placement well. Vomited x 2, draining pink fluids. 300ml drained after initiation
--- NOTE | 2023-03-10 09:40 | HP.PCM.SX_ITS ---
HPI - General HPI Narrative MARTHA LEVINE, is a 42 M who presents with nausea and vomiting and upper abdominal pain. Patient reports this started yesterday. He had a bowel obstruction when he was 16 years old and required small bowel resection. He does not think he has had any small bowel obstructions since then. He denies fevers or chills. When asked where his pain focally is he points to the upper abdomen. PFSH Medical History Alcohol abuse Alcohol use disorder Bipolar II disorder Depression with anxiety Heart murmur History of cleft palate Lab test negative for COVID-19 virus Migraine OCD (obsessive compulsive disorder) PTSD (post-traumatic stress disorder) Recovering alcoholic Home Medications buspirone 10 mg tablet 10 mg PO BID #60 tabs 01/22/23 [Rx Last Taken Unknown] quetiapine 150 mg tablet 150 mg PO QHS #30 tabs 03/06/23 [Rx Last Taken Unknown] Allergy/AdvReac Type Severity Reaction Status Date / Time adhesive Allergy Rash Verified 03/10/23 04:42 Opioids - Morphine Analogues AdvReac Other Verified 03/10/23 06:43 Family History Father Alcoholism Mother Alcoholism Cancer lung Grandfather Alcoholism Grandmother Alcoholism Surgical History (Updated 03/10/23 @ 05:[address] Carlitos Peterson DO) History of intestinal surgery History of placement of ear tubes History of repair of congenital cleft palate Hx of eye surgery Social History Smoking Status: Current every day smoker tobacco type: cigarettes Tobacco: How many years used: 12 alcohol intake: former substance use type: does not use what type of physical activity do you participate in: weight training ROS Constitutional Constitutional: Denies anorexia, chills or fatigue Eyes Eyes: Denies blurry vision ENT HEENT: Denies abnormal hearing Cardiovascular Cardiovascular: Denies chest pain Respiratory/Chest Respiratory/Chest: Denies cough or dyspnea Gastrointestinal Gastrointestinal: Reports abdominal pain, nausea and vomiting; Denies coffee ground emesis or rectal bleeding Genitourinary Genitourinary: Denies change in urinary stream or difficulty urinating Musculoskeletal Musculoskeletal: Denies abnormal gait Integumentary Integumentary: Denies jaundice Neurologic Neurologic: Denies abnormal gait Psychiatric Psychiatric: Reports anxiety and depression Endocrine Endocrinology: Denies flushing Vital Signs Vital Signs Vital Signs: 03/10/23 04:43 03/10/23 06:50 03/10/23 09:38 Temperature 96.4 F L Temperature Source Temporal Pulse Rate 92 99 98 Respiratory Rate 24 H 18 16 Blood Pressure 130/92 H 104/71 117/80 Blood Pressure Mean 104 82 92 Pulse Ox 99 99 92 Oxygen Delivery Method Room Air Weight Weight: 164 lb 14.492 oz Body Mass Index (BMI) 25.0 Physical Exam Const oriented x3 and no apparent distress Resp normal respiratory effort Cardio regular rate and regular rhythm GI soft to palpation Inspection: Negative for abdominal distention Palpation: tender Results Lab / Micro Data 03/10/23 04:50 03/10/23 04:50 Labs: Laboratory Results - last 24 hr 03/10/23 04:50: WBC 10.6, RBC 5.50, Hgb 17.3 H, Hct 53.2, MCV 96.7 H, MCH 31.5, MCHC 32.5, RDW Std Deviation 45.3 H, RDW Coeff of [place] 12.5, Plt Count 220, MPV 10.9, Immature Gran % (Auto) 0.300, Neut % (Auto) 75.8 H, Lymph % (Auto) 17.9 L, [place] % (Auto) 2.9, Eos % (Auto) 2.8, Baso % (Auto) 0.3, Absolute Neuts (auto) 8.1 H, Absolute Lymphs (auto) 1.90, Nucleated RBC % 0, Sodium 142, Potassium 4.1, Chloride 109 H, Carbon Dioxide 26.0, Anion Gap 7, BUN 19 H, Creatinine 1.27, Estim Creat Clear Calc 71.81, Est GFR (MDRD) Af Amer 79, Est GFR (MDRD) Non-Af 65, BUN/Creatinine Ratio 15.0, Glucose 113 H, Calcium 9.5, Total Bilirubin 0.60, AST 22, ALT 21, Alkaline Phosphatase 67, Total Protein 7.6, Albumin 4.2, Globulin 3.4, Albumin/Globulin Ratio 1.2, Lipase 29 03/10/23 07:36: Urine Color Yellow, Urine Clarity Clear, Urine pH 6.5, Ur Specific [place] 1.015, Urine Protein 15 H, Urine Glucose (UA) Normal, Urine Ketones 50 H, Urine Occult Blood Negative, Urine Nitrite Negative, Urine Bilirubin Negative, Urine Urobilinogen Normal, Ur Leukocyte Esterase Negative, Urine RBC 0 SEEN, Urine WBC 0 SEEN, Ur Squamous Epith Cells 0 SEEN, Urine Bacteria 0 SEEN, Urine Mucus 0 SEEN Radiology Impression Abdomen/Pelvis CT 03/10/23 05:38 IMPRESSION: 1. Small bowel obstruction possibly related to anastomotic stricture located within the right lower quadrant. 2. Right hydronephrosis and evidence of right renal cortical loss possibly related to chronic UP junction obstruction. 3. Right nephrolithiasis. Electronically Signed: Prudencio Welch MD at 7:41 EDT , Assessment & Plan Assessment/Plan (1) SBO (small bowel obstruction): PLAN: The patient has a CT scan that shows a small bowel obstruction with questionable stenosis at the prior anastomosis. Patient has an NG tube in place in the ER. I will admit him and keep him on IV fluids and order a small bowel follow-through for tomorrow. I advised him that if the small bowel follow- through does not show passage of contrast the colon he may need repeat surgery. Patient understands. Cole Mcnulty MD Pager: [facility] [address] [place] [address], [address] [place] [phone] Office:
[2023-03-10] MEDS: Lidocaine 2% Jelly 1 APPLIC Tube TOPICAL (09:41)
--- NOTE | 2023-03-10 10:40 | NURSING ---
MED SURG [facility] SMALL BOWEL OBSTRUCTION
[2023-03-10] MEDS: 0.9% Normal Saline 1,000 ML 100 ML IV ×2 (11:23→19:55)
[2023-03-10] MEDS: 0.9% Saline Lock 10 ML Syringe IV ×3 (12:26→19:07)
[2023-03-10] MEDS: Morphine 2 MG/ML Syringe IV ×2 (17:16→22:01)
--- NOTE | 2023-03-10 22:14 | NURSING ---
Unable to confirm placement of NG tube via air auscultation and pt c/o increased abdominal pain. Tape loose on pt's nose-pt states NG may have slipped out some. KUB order placed per policy to confirm NG placement.
--- NOTE | 2023-03-10 22:40 | RAD_ITS ---
STUDY: X-RAY - ABDOMEN/PELVIS REASON FOR EXAM: Male, 42 years old. NG tube placement TECHNIQUE: Single AP view of the abdomen / pelvis. COMPARISON: None. FINDINGS: Nasogastric tube with the tip in the midline of the chest likely in the distal esophagus. Multiple loops of moderately dilated small bowel. The visualized liver, spleen and kidneys are grossly normal in size and morphology. Normal soft tissue structures. Normal visualized osseous structures. RAD/Abdomen Single View IMPRESSION: 1. Nasogastric tube in the chest likely in the distal esophagus. 2. Possible mild small bowel obstruction. Electronically Signed: Surinder Guthrie MD at 22:57 EDT ,
--- NOTE | 2023-03-10 23:19 | RAD_ITS ---
INDICATION: NG placement (advanced tube since previous study) EXAMINATION/TECHNIQUE: X-RAY - XR Abdomen 1 View COMPARISON: March 10, 2023 FINDINGS: BOWEL GAS PATTERN: Enteric tube projects subdiaphragmatic within the stomach. Persistent layering dilated loops of small bowel in left upper abdomen. FREE AIR: Not well assessed on a supine view. ORGANOMEGALY: Not seen. CALCIFICATIONS: No concerning calcifications. LOWER CHEST: No acute pathology. BONES AND SOFT TISSUES: No acute pathology. RAD/Abdomen Single View (Portable) IMPRESSION: Enteric tube projects subdiaphragmatic within the stomach. Persistent layering dilated loops of small bowel in the left upper abdomen concerning for obstruction. Electronically Signed: Yony Rangel MD at 0:51 EDT ,
[2023-03-11] VITALS (10 sets, daily range): BP systolic 100–125; BP diastolic 73–94; PULSE 89–106; RESP 16–18; TEMP 36.4–37.6; O2SAT 93–100
[2023-03-11] MEDS: 0.9% Saline Lock 10 ML Syringe IV ×2 (00:45→21:23)
[2023-03-11] MEDS: Morphine 4 MG/ML Syringe IV ×3 (00:45→21:23)
[2023-03-11] MEDS: Ondansetron 4 MG/2 ML Vial IV ×2 (04:25→12:49)
[2023-03-11] MEDS: 0.9% Normal Saline 1,000 ML 100 ML IV ×2 (05:29→17:57)
[2023-03-11 06:43] LABS: Absolute Lymphocyte Count 0.65 X10^3/uL (0.83-4.51); Absolute Neutrophil Count 4.5 X10^3/uL (2.0-7.7); Basophil# 0.02 X10^3/uL; Basophil% 0.3 % (0-1); Eosinophil# 0.03 X10^3/uL; Eosinophils% 0.5 % (0-5); Hematocrit 47.9 % (40-54); Hemoglobin 16.1 g/dL (13.0-16.5); Lymphocyte # 0.65 X10^3/ul (0.83-4.51); Lymphocyte % 11.3 % (19-41); Mean Corp Hgb Conc 33.6 g/dL (32-36); Mean Corpuscular Hgb 31.7 pg (27.0-32.0); Mean Corpuscular Volume 94.3 fL (80-94); Mean Platelet Vol. 10.5 fl (6.2-12.0); Monocyte# 0.56 X10^3/uL; Monocyte% 9.7 % (0-10); NRBC Flagged by Analyzer 0 % (0-5); POSITIVE MORPHOLOGY YES; Platelet Count 212 K/mm3 (150-450); RBC Distribution Width CV 12.6 % (11.6-14.6); RBC Distribution Width SD 44.3 fl (35.1-43.9); Red Blood Count 5.08 M/mm3 (4.6-6.2); White Blood Count 5.8 K/mm3 (4.4-11.0)
--- NOTE | 2023-03-11 07:05 | PN.SURG_ITS ---
Subjective Subjective Patient reports that he is still having some mild pain this morning. He thought he felt like things were moving forward but then he had an episode where he gagged and there was a lot that came through his NG. Objective Data Objective Data Vital Signs: Vital Signs Temp Pulse Resp BP Pulse Ox O2 Del Method 97.6 F L 89 16 114/84 H 95 Room Air 03/11/23 06:45 03/11/23 06:45 03/11/23 06:45 03/11/23 06:45 03/11/23 06:45 03/11/23 06:45 Oxygen Delivery Method Room Air Weight: 164 lb 0.383 oz Body Mass Index (BMI) 24.5 Intake & Output: Intake and Output for Last 24 Hours 03/09/23 03/10/23 03/11/23 23:59 23:59 23:59 Intake Total 2033.33 / 2033.33 1066.67 / 1066.67 Output Total 1045 / 1570 625 / 625 Balance 988.33 / 463.33 441.67 / 441.67 Lab / Micro Data 03/10/23 04:50 03/10/23 04:50 Labs: Laboratory Results - last 24 hr 03/10/23 07:36: Urine Color Yellow, Urine Clarity Clear, Urine pH 6.5, Ur Specific [place] 1.015, Urine Protein 15 H, Urine Glucose (UA) Normal, Urine Ketones 50 H, Urine Occult Blood Negative, Urine Nitrite Negative, Urine Bilirubin Negative, Urine Urobilinogen Normal, Ur Leukocyte Esterase Negative, Urine RBC 0 SEEN, Urine WBC 0 SEEN, Ur Squamous Epith Cells 0 SEEN, Urine Bacteria 0 SEEN, Urine Mucus 0 SEEN Radiography Diagnostic Testing: Radiology Impression Abdomen/Pelvis CT 03/10/23 05:38 IMPRESSION: 1. Small bowel obstruction possibly related to anastomotic stricture located within the right lower quadrant. 2. Right hydronephrosis and evidence of right renal cortical loss possibly related to chronic UP junction obstruction. 3. Right nephrolithiasis. Electronically Signed: Prudencio Welch MD at 7:41 EDT , KUB X-Ray 03/10/23 08:07 IMPRESSION: Recommend further advancing the endogastric tube. As above. Electronically Signed: Prudencio Welch MD at 10:14 EDT , KUB X-Ray 03/10/23 22:40 IMPRESSION: 1. Nasogastric tube in the chest likely in the distal esophagus. 2. Possible mild small bowel obstruction. Electronically Signed: Surinder Guthrie MD at 22:57 EDT , KUB X-Ray 03/10/23 23:19 IMPRESSION: Enteric tube projects subdiaphragmatic within the stomach. Persistent layering dilated loops of small bowel in the left upper abdomen concerning for obstruction. Electronically Signed: Yony Rangel MD at 0:51 EDT , Physical Exam Const oriented x3 Resp normal respiratory effort GI soft to palpation Inspection: Negative for abdominal distention Palpation: tender Assessment & Plan Assessment/Plan (1) SBO (small bowel obstruction): PLAN: Patient had a small episode of fever yesterday. This is resolved. I started the patient on antibiotics to cover any possible infection. Patient reports some mild abdominal pain for which she received morphine this morning. He does not report definitely passing gas but he thinks he may have. I am getting a small bowel follow-through today. Cole Mcnulty MD Pager: [facility] [address] [place] [address], [address] [place] [address] Office:
[2023-03-11 07:09] LABS: Anion Gap 5 (5-15); BUN 24 mg/dL (7-18); BUN/Creat Ratio 20.5 RATIO (10-20); Calcium,Total 8.7 mg/dL (8.5-10.1); Chloride 112 mmol/L (98-107); Creatinine, Serum 1.17 mg/dL (0.70-1.30); EST Glomerular Filtration Rate 72 mL/min (>60); Est Glom Filt Rate - Afr Amer 87 mL/min (>60); Estimated Creatinine Clearance 77.95 ml/min; Glucose 128 mg/dL (74-106); Sodium Level 141 mmol/L (136-145)
[2023-03-11 07:13] LABS: Differential Indicated SCAN CRITERIA MET
--- NOTE | 2023-03-11 08:00 | RAD_ITS ---
STUDY: GASTROGRAFIN SMALL BOWEL FOLLOW-THROUGH EXAMINATION. REASON FOR EXAM: Male, 42 years old. Small bowel obstruction -- gastrografin TECHNIQUE: Gastrografin was inserted into the indwelling nasogastric tube. COMPARISON: None. FINDINGS: A binder lockstitch film was obtained. There is evidence of small bowel dilatation with a transition. In the right lower quadrant. 20 and 40 cc of a mixture of Gastrografin and water was placed into the indwelling nasogastric tube. Imaging was obtained up to 60 minutes following the placement of the Gastrografin. The patient vomited. The study was discontinued. RAD/Small Bowel Series Only IMPRESSION: Limited study. Small bowel obstruction. Electronically Signed: Abner Gibbons MD at 12:52 EDT ,
--- NOTE | 2023-03-11 10:58 | CASEMGMT ---
ANEUDY COLVIN Assessment: Face to Face with pt for initial transition planning/care coordination assessment. RN CM introduced self and role at [facility], pt voices understanding and consents to assessment. Pt is A/O x4 and answers all questions appropriately at this time. Pt lying in bed with NG in and at bedside. Care providers, pharmacy, and demographics verified/updated. Admitting Dx: SBO PCP:Renu Specialists:Pt denies Preferred [facility]acy:[facility] Insurance: [facility], [facility] Prescription Benefit: yes LNOK: Lyn Hussein, Living Arrangements: Pt lives with and son in a single story home with one step to enter. Pt reports he is I in ADL's and denies concerns at home. Transportation: Pt drives self and denies concerns with transportation. DME/HHC/SNF: Pt denies having any DME, previous HHC or SNF stays. Pt states no concerns with going home at time of dc. 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 Pt states no further concerns/needs. CM to follow. Advised pt to ask CM if any further question/concerns/needs arise, voices understanding. Pt Goal: Home Plan: Home
--- NOTE | 2023-03-11 12:06 | NURSING ---
talked to radiology, pt allowed to be hooked back up to LIWS following large emesis
[2023-03-11] MEDS: Morphine 2 MG/ML Syringe IV ×2 (12:51→17:57)
--- NOTE | 2023-03-11 14:18 | NURSING ---
pt off floor for surgery
--- NOTE | 2023-03-11 14:26 | PCM.PN.BLA ---
Progress Note Attempted small bowel follow-through. Patient vomited in the contrast did not leave his stomach. Patient has a high-grade bowel obstruction is not resolving. I recommended surgery. I we will start laparoscopically and try to find the area of transition and if I am unable to then I would have to convert to open. I discussed the risks including but not limited to bleeding, infection, injury to other organs, need for resection of his prior anastomosis or resection of other small bowel. Patient understands and is willing to proceed. Cole Mcnulty MD Pager: [facility] [address] [place] [address], [address] [place] [address] Office:
--- NOTE | 2023-03-11 14:30 | COL_PTH ---
PATIENT: MARTHA LEVINE LOC: MS3 U#:[id number] AGE/SX: 42/M ROOM: WY317 RE03/10/[address]: Dr. Cole Mcnulty MD : 1980 BED: 1 DIS: 03/18/2023 SPEC #: [id number] RECD: 03/11/23 16:47 STATUS: LUZ ELENA IRVING #: [id number] TOYA: 03/11/23 14:[address]: Cole Mcnulty DEPT: SURGICAL PATHOLOGY RECD BY: Trent Henson ENTERED: 03/12/23 18:21 SP TYPE: COLON OTHR DR: Dr. Chevy Sears MD Tissues: Colon, NOS Procedures: Surgery Specimen Level III Surgery Specimen Level V HEADER OPERATION: Exploratory laparoscopy, converted to open, small bowel resection PRE-OP DIAGNOSIS: Small bowel obstruction, right hydronephrosis, right nephrolithiasis TISSUE SUBMITTED: Small bowel anastomosis MICROSCOPIC DIAGNOSIS Small bowel anastomosis, segmental dissection: A segment of small bowel with intact anastomosis with reactive changes. One benign mesenteric lymph node. JOSÉ:aric 03/14/2023 MICROSCOPIC DESCRIPTION Slides are reviewed. GROSS DESCRIPTION Received in fixative is one container labeled with the patient's name and designated small bowel anastomosis. The specimen consists of a segment of small bowel measuring 6.5 cm in length and 4.0 cm in diameter. Attached mesentery measures up to 1.0 cm in width. Both resection margins are stapled. A suture is present at the serosal surface in the central portion of the specimen, which appears to be a previous anastomosis site. The lumen is filled with fecal material. Also present in the container is a piece of bowel tissue measuring 9.0 x 0.5 x 0.5 cm, possible donut. Multiple radha are noted. Sections of mesenteric tissue do not reveal any obviously enlarged lymph node. Tier And Detonator sections are submitted in six cassettes as follows: 1??detached piece of bowel tissue, 2 - resection margins, 3 & 4 - central area, site of anastomosis, 5 - retail customer service representative section from other area, 6 - mesenteric tissue. / JOSÉ:aric 03/13/2023 TC:5 CPT: 82685
[2023-03-11] MEDS: Lactated Ringers 1,000 ML 15 ML IV (14:35)
[2023-03-11] MEDS: Bupivacaine Mpf 0.5% 30 ML VIAL (16:20)
--- NOTE | 2023-03-11 16:34 | OP.PCM_ITS ---
Report of Operation Date of Procedure: 03/11/23 Pre-Operative Diagnosis: Small bowel obstruction Post-Operative Diagnosis: Small bowel obstruction due to stenosis of the prior anastomosis Surgery/Procedure Performed:: Exploratory laparoscopy converted to open with resection of prior anastomosis and repeat primary anastomosis Specimen's removed: Prior small bowel anastomosis Description of Procedure: Patient was brought back to the operating room and general anesthesia was induced. Kilgore catheter was placed. The abdomen was prepped and draped in usual sterile fashion. A midline incision was made in the superior epigastric region where there was no scar. It was deepened to the fascia which was elevated and incised. A 12 mm port was placed into the abdomen is insufflated to 15 mmHg. Camera was placed into the abdomen. There were dense adhesions to the entire prior incision. There was no way to see down to the pelvis laparoscopically. I was able to find a window in the prior scar tissue that there was no bowel. Next a midline incision was made over his old incision. In the area that was open electrocautery was used to enter the abdomen. A finger was placed in the abdomen and the bowel was taken down from the anterior abdomen enough to open the midline incision a little bit more. Next the abdomen was allowed to desufflate and the port was removed. Using Jamie's the fascia was elevated and using sharp dissection the bowel was dissected free from the anterior fascia inferiorly until the incision reached the suprapubic area. Next 2 Michelle's were used to elevate the right side of the fascia and the adhesions to the anterior abdominal wall were taken down sharply. On the left side of the abdomen and the adhesions were taken down in the same fashion. Once the bowel was able to be mobilized the small bowel was delivered through the incision. There were a lot of adhesions that were taken down sharply to free up the bowel from itself. It appeared that the prior anastomosis was the transition site. The bowel distal to the prior anastomosis appeared collapsed. There appeared to be a large hard piece of food stuck at the anastomosis. Next the decision was made to resect the prior anastomosis. A window was made in the mesentery proximally and distally and a DELORES stapler was used to divide this piece of bowel. The LigaSure impact was used to take down the mesentery. Next the corner of each of the proximal and distal small bowel staple line was taken down sharply and the stapler was placed into the bowel and a [id number] functional end-to-end anastomosis was performed using a DELORES stapler. A TX 60 was used to close the enterostomy. 3-0 silk suture was used to reinforce the staple line and to place a crotch suture. Mesenteric defect was closed with 3-0 silk sut ure. The bowel was placed back into the abdomen. The abdomen was irrigated and suctioned dry. The fascia was reapproximated using running 0 Prolene suture from the top and bottom meeting in the middle. The fascia of the laparoscopic site was closed with an 0 Vicryl suture. The subcutaneous tissue was irrigated and suctioned and the skin was closed with radha. Dressing was applied. Kilgore was removed at the end the case and patient was taken to PACU in stable condition. Admit VTE Documentation VTE Mechan Device Prophylaxis: SCD's
[2023-03-11] MEDS: busPIRone 5 MG Tablet 10 MG PO (22:03)
[2023-03-11] MEDS: QUEtiapine 100 MG Tablet 150 MG PO (22:03)
[2023-03-12] MEDS: Morphine 4 MG/ML Syringe IV ×5 (00:16→17:59)
[2023-03-12] MEDS: 0.9% Saline Lock 10 ML Syringe IV ×9 (00:16→22:04)
[2023-03-12] MEDS: 0.9% Normal Saline 1,000 ML 100 ML IV ×3 (02:40→21:46)
[2023-03-12 02:49] VITALS: BP 111/75; PULSE 111; RESP 16; TEMP 37; O2SAT 96
[2023-03-12] MEDS: Morphine 2 MG/ML Syringe IV ×3 (06:02→22:03)
[2023-03-12 06:17] VITALS: BP 118/84; PULSE 112; RESP 16; TEMP 37.5; O2SAT 94
[2023-03-12 07:12] LABS: Absolute Lymphocyte Count 0.74 X10^3/uL (0.83-4.51); Absolute Neutrophil Count 3.8 X10^3/uL (2.0-7.7); Basophil# 0.02 X10^3/uL; Basophil% 0.4 % (0-1); Hemoglobin 14.5 g/dL (13.0-16.5); Lymphocyte # 0.74 X10^3/ul (0.83-4.51); Mean Corpuscular Hgb 31.7 pg (27.0-32.0); Mean Corpuscular Volume 96.1 fL (80-94); Mean Platelet Vol. 10.6 fl (6.2-12.0); Monocyte# 0.67 X10^3/uL; Monocyte% 12.7 % (0-10); NRBC Flagged by Analyzer 0 % (0-5); Neutrophil # 3.83 X10^3/uL (2.7-7.7); Neutrophil % 72.5 % (47-70); POSITIVE MORPHOLOGY YES; Platelet Count 182 K/mm3 (150-450); RBC Distribution Width CV 12.8 % (11.6-14.6); RBC Distribution Width SD 45.4 fl (35.1-43.9); Red Blood Count 4.58 M/mm3 (4.6-6.2); White Blood Count 5.3 K/mm3 (4.4-11.0)
[2023-03-12 07:38] LABS: Anion Gap 2 (5-15); BUN 20 mg/dL (7-18); BUN/Creat Ratio 15.6 RATIO (10-20); Calcium,Total 8.3 mg/dL (8.5-10.1); Chloride 116 mmol/L (98-107); Creatinine, Serum 1.28 mg/dL (0.70-1.30); EST Glomerular Filtration Rate 65 mL/min (>60); Est Glom Filt Rate - Afr Amer 78 mL/min (>60); Estimated Creatinine Clearance 71.25 ml/min; Glucose 125 mg/dL (74-106); Potassium 4.1 mmol/L (3.5-5.1); Sodium Level 144 mmol/L (136-145)
[2023-03-12 07:57] LABS: Differential Indicated SCAN CRITERIA MET
--- NOTE | 2023-03-12 08:20 | PCM.PN.SRG ---
Subjective Subjective Patient does not report any bowel function yet. He reports his abdominal pain is improved. Objective Data Objective Data Vital Signs: Vital Signs Temp Pulse Resp BP Pulse Ox O2 Del Method 99.5 F H 112 H 16 118/84 H 94 Room Air 03/12/23 06:17 03/12/23 06:17 03/12/23 06:17 03/12/23 06:17 03/12/23 06:17 03/12/23 06:17 Oxygen Delivery Method Room Air Weight: 164 lb 0.383 oz Body Mass Index (BMI) 24.5 Intake & Output: Intake and Output for Last 24 Hours 03/10/23 03/11/23 03/12/23 23:59 23:59 23:59 Intake Total 2033.33 / 2033.33 2342.92 / 2342.92 981.67 / 981.67 Output Total 1045 / 1570 1979 / 1979 1050 / 1050 Balance 988.33 / 463.33 362.92 / 362.92 -68.33 / -68.33 Lab / Micro Data 03/12/23 06:18 03/12/23 06:18 Labs: Laboratory Results - last 24 hr 03/12/23 06:18: WBC 5.3, RBC 4.58 L, Hgb 14.5, Hct 44.0, MCV 96.1 H, MCH 31.7, MCHC 33.0, RDW Std Deviation 45.4 H, RDW Coeff of [place] 12.8, Plt Count 182, MPV 10.6, Immature Gran % (Auto) 0.400, Neut % (Auto) 72.5 H, Lymph % (Auto) 14.0 L, [place] % (Auto) 12.7 H, Eos % (Auto) 0.0, Baso % (Auto) 0.4, Absolute Neuts (auto) 3.8, Absolute Lymphs (auto) 0.74 L, Nucleated RBC % 0, Sodium 144, Potassium 4.1, Chloride 116 H, Carbon Dioxide 26.0, Anion Gap 2 L, BUN 20 H, Creatinine 1.28, Estim Creat Clear Calc 71.25, Est GFR (MDRD) Af Amer 78, Est GFR (MDRD) Non-Af 65, BUN/Creatinine Ratio 15.6, Glucose 125 H, Calcium 8.3 L Radiography Diagnostic Testing: Radiology Impression Small Bowel X-Ray 03/11/23 08:00 IMPRESSION: Limited study. Small bowel obstruction. Electronically Signed: Abner Gibbons MD at 12:52 EDT , Physical Exam Const oriented x3 and no apparent distress Resp normal respiratory effort GI soft to palpation Inspection: Negative for abdominal distention Palpation: tender Assessment & Plan Assessment/Plan (1) SBO (small bowel obstruction): PLAN: Patient had exploratory laparotomy yesterday with revision of his anastomosis. He had extensive lysis of adhesions as well. Continue n.p.o. and NG until he has bowel function. Patient is tachycardic but he says that his urine is dark so he may be dry. I will give him a bolus to see if this resolves his tachycardia. Continue to encourage ambulation and incentive spirometer. Cole Mcnulty MD Pager: [facility] [address] [place] [address], [address] [place] [address] Office:
[2023-03-12 09:00] VITALS: BP 127/89; PULSE 111; RESP 20; TEMP 37.1; O2SAT 94
[2023-03-12 09:00] LABS: Differential Comment SCANNED
[2023-03-12] MEDS: busPIRone 5 MG Tablet 10 MG PO ×2 (09:11→21:46)
[2023-03-12] MEDS: 0.9% Normal Saline 1,000 ML 999 ML IV (09:11)
[2023-03-12 09:15] VITALS: O2SAT 94
--- NOTE | 2023-03-12 10:24 | NURSING ---
Pt got up to bathroom with assistance of this RN and REPORT WRITER this morning around 830am. Pt has used I.S and peep x10 reps twice this morning. Pt is aware to use q1hr while awake. educated on importance. Pt NG was clamped from 0917 to 1010 for morning medication of buspar.
--- NOTE | 2023-03-12 13:26 | EKG12_ITS ---
Test Reason : ARRYHTHMIA Blood Pressure : / mmHG Vent. Rate : 097 BPM Atrial Rate : 097 BPM P-R Int : 144 ms QRS Dur : 106 ms QT Int : 340 ms P-R-T Axes : 042 008 021 degrees QTc Int : 431 ms Sinus rhythm with sinus arrhythmia with occasional Premature ventricular complexes Otherwise normal ECG When compared with ECG of 23-JUN-2020 22:34, Premature ventricular complexes are now Present Confirmed by MARQUEZ GREEN, ASHLEY ([id number]), editor publications BLANK VITALE ([id number]) on 03/14/2023 10:39:59 AM Referred By: JOSLYN Confirmed By:ASHLEY ZAYAS MD
--- NOTE | 2023-03-12 13:27 | NURSING ---
into room for assessment as primary RN requested. pt c/o feeling heart palpitations. denies chestpain but states feels heart beating out of his chest hard. noted apical irreg. pt states hx murmur. cps called for ekg. no distress noted.
[2023-03-12 13:28] VITALS: BP 125/94; PULSE 104; RESP 18; TEMP 37.1; O2SAT 95
--- NOTE | 2023-03-12 14:39 | NURSING ---
This RN is aware that Mg and Troponin results are still pending and will notify Dr. Mcnulty when resulted. Pt is up walking the halls with assistance and then will sit in chair.
[2023-03-12 14:49] LABS: Magnesium 2.4 mg/dL (1.6-2.6); Troponin-I HS 9 pg/mL (3.0-78.0)
[2023-03-12] MEDS: Ondansetron 4 MG/2 ML Vial IV (18:10)
[2023-03-12 20:34] VITALS: BP 114/75; PULSE 105; RESP 16; TEMP 37.2; O2SAT 93
[2023-03-12] MEDS: QUEtiapine 100 MG Tablet 150 MG PO (21:46)
[2023-03-13 04:19] VITALS: BP 109/70; PULSE 98; RESP 18; TEMP 36.8; O2SAT 95
[2023-03-13 05:02] LABS: Absolute Lymphocyte Count 0.91 X10^3/uL (0.83-4.51); Absolute Neutrophil Count 3.5 X10^3/uL (2.0-7.7); Basophil# 0.02 X10^3/uL; Basophil% 0.4 % (0-1); Eosinophil# 0.19 X10^3/uL; Eosinophils% 3.6 % (0-5); Hematocrit 41.1 % (40-54); Hemoglobin 13.5 g/dL (13.0-16.5); Lymphocyte # 0.91 X10^3/ul (0.83-4.51); Lymphocyte % 17.1 % (19-41); Mean Corp Hgb Conc 32.8 g/dL (32-36); Mean Corpuscular Hgb 31.8 pg (27.0-32.0); Mean Corpuscular Volume 96.9 fL (80-94); Mean Platelet Vol. 10.2 fl (6.2-12.0); Monocyte# 0.67 X10^3/uL; Monocyte% 12.6 % (0-10); NRBC Flagged by Analyzer 0 % (0-5); Neutrophil # 3.51 X10^3/uL (2.7-7.7); Neutrophil % 66.1 % (47-70); Platelet Count 169 K/mm3 (150-450); RBC Distribution Width CV 12.8 % (11.6-14.6); Red Blood Count 4.24 M/mm3 (4.6-6.2); White Blood Count 5.3 K/mm3 (4.4-11.0)
[2023-03-13 05:44] LABS: Anion Gap 3 (5-15); BUN 19 mg/dL (7-18); BUN/Creat Ratio 17.8 RATIO (10-20); Calcium,Total 8.2 mg/dL (8.5-10.1); Chloride 120 mmol/L (98-107); Creatinine, Serum 1.07 mg/dL (0.70-1.30); EST Glomerular Filtration Rate 80 mL/min (>60); Est Glom Filt Rate - Afr Amer 97 mL/min (>60); Estimated Creatinine Clearance 85.23 ml/min; Glucose 96 mg/dL (74-106); Potassium 3.8 mmol/L (3.5-5.1); Sodium Level 148 mmol/L (136-145)
[2023-03-13] MEDS: BENZOCAINE/MENTHOL 1 LOZENGE MUCOUS MEM ×2 (05:46→16:36)
[2023-03-13] MEDS: 0.9% Saline Lock 10 ML Syringe IV (05:46)
[2023-03-13] MEDS: Acetaminophen 650 MG/20 ML UDC PO ×2 (05:47→18:43)
[2023-03-13] MEDS: 0.9% Normal Saline 1,000 ML 100 ML IV ×2 (05:47→16:28)
[2023-03-13 08:00] VITALS: BP 136/91; PULSE 101; RESP 18; TEMP 37.1; O2SAT 95
--- NOTE | 2023-03-13 08:04 | PCM.PN.SRG ---
Subjective Subjective Patient does not have any bowel function yet. Patient is belching. He reports minimal abdominal pain Objective Data Objective Data Vital Signs: Vital Signs Temp Pulse Resp BP Pulse Ox O2 Del Method 98.2 F 98 18 109/70 95 Room Air 03/13/23 04:19 03/13/23 04:19 03/13/23 04:19 03/13/23 04:19 03/13/23 04:19 03/13/23 04:19 Oxygen Delivery Method Room Air Weight: 164 lb 0.383 oz Body Mass Index (BMI) 24.5 Intake & Output: Intake and Output for Last 24 Hours 03/11/23 03/12/23 03/13/23 23:59 23:59 23:59 Intake Total 2342.92 / 2342.92 4304.83 / 4304.83 972.17 / 972.17 Output Total 1979 / 1979 1300 / 1300 200 / 200 Balance 362.92 / 362.92 3004.83 / 3004.83 772.17 / 772.17 Lab / Micro Data 03/13/23 04:35 03/13/23 04:35 Labs: Laboratory Results - last 24 hr 03/12/23 06:18: Differential Comment SCANNED 03/12/23 14:11: Magnesium 2.4, Troponin I High Sens 9 03/13/23 04:35: WBC 5.3, RBC 4.24 L, Hgb 13.5, Hct 41.1, MCV 96.9 H, MCH 31.8, MCHC 32.8, RDW Std Deviation 46.0 H, RDW Coeff of Ky 12.8, Plt Count 169, MPV 10.2, Immature Gran % (Auto) 0.200, Neut % (Auto) 66.1, Lymph % (Auto) 17.1 L, [place] % (Auto) 12.6 H, Eos % (Auto) 3.6, Baso % (Auto) 0.4, Absolute Neuts (auto) 3.5, Absolute Lymphs (auto) 0.91, Nucleated RBC % 0, Sodium 148 H, Potassium 3.8, Chloride 120 H, Carbon Dioxide 25.0, Anion Gap 3 L, BUN 19 H, Creatinine 1.07, Estim Creat Clear Calc 85.23, Est GFR (MDRD) Af Amer 97, Est GFR (MDRD) Non-Af 80, BUN/Creatinine Ratio 17.8, Glucose 96, Calcium 8.2 L Physical Exam Const oriented x3 Resp normal respiratory effort GI soft to palpation Inspection: Negative for abdominal distention Extremity normal to inspection Assessment & Plan Assessment/Plan (1) SBO (small bowel obstruction): PLAN: Patient does not report having any bowel function yet. He has hypoactive bowel sounds but his NG output is decreasing. Once he starts passing gas I will remove his NG and start clear liquids. He is belching a lot so I believe he is still not ready for his tube to be removed yet. Cole Mcnulty MD Pager: [facility] [address] [place] [address], [address] [place] [address] Office:
[2023-03-13] MEDS: busPIRone 5 MG Tablet 10 MG PO ×2 (09:29→22:29)
[2023-03-13 16:30] VITALS: BP 124/90; PULSE 75; RESP 18; TEMP 37; O2SAT 95
[2023-03-13 19:34] VITALS: BP 117/78; PULSE 97; RESP 18; TEMP 37.4; O2SAT 95
[2023-03-13] MEDS: QUEtiapine 100 MG Tablet 150 MG PO (22:29)
[2023-03-14] MEDS: 0.9% Normal Saline 1,000 ML 100 ML IV ×3 (01:15→21:30)
[2023-03-14 02:14] VITALS: BP 132/88; PULSE 74; RESP 18; TEMP 36.9; O2SAT 97
[2023-03-14] MEDS: Acetaminophen 650 MG/20 ML UDC PO ×4 (02:22→23:47)
[2023-03-14 08:15] VITALS: BP 126/83; PULSE 72; RESP 18; TEMP 36.8; O2SAT 98
--- NOTE | 2023-03-14 08:42 | PN.SURG_ITS ---
Subjective Subjective Patient denies any nausea. His abdomen is not bloated. He does not know if he is passing gas. Objective Data Objective Data Vital Signs: Vital Signs Temp Pulse Resp BP Pulse Ox O2 Del Method 98.5 F 74 18 132/88 H 97 Room Air 03/14/23 02:14 03/14/23 02:14 03/14/23 02:14 03/14/23 02:14 03/14/23 02:14 03/14/23 02:14 Oxygen Delivery Method Room Air Weight: 164 lb 0.383 oz Body Mass Index (BMI) 24.5 Intake & Output: Intake and Output for Last 24 Hours 03/12/23 03/13/23 03/14/23 23:59 23:59 23:59 Intake Total 4304.83 / 4304.83 2222.17 / 2222.17 998.33 / 998.33 Output Total 1300 / 1300 800 / 800 1000 / 1000 Balance 3004.83 / 3004.83 1422.17 / 1422.17 -1.67 / -1.67 Lab / Micro Data 03/13/23 04:35 03/13/23 04:35 Assessment & Plan Assessment/Plan (1) SBO (small bowel obstruction): PLAN: Patient's incision appears clean dry and intact. He is not passing flatus that he knows of but he does have bowel sounds. NG is putting out minimal out put and appears to be just bile. I will remove the NG and start clear liquids and see how he tolerates a diet. Cole Mcnulty MD Pager: [facility] [address] [place] [address], [address] [place] [address] Office:
[2023-03-14] MEDS: busPIRone 5 MG Tablet 10 MG PO ×2 (11:17→21:28)
[2023-03-14 16:00] VITALS: BP 120/77; PULSE 70; RESP 18; TEMP 37; O2SAT 98
[2023-03-14 21:18] VITALS: BP 118/88; PULSE 80; RESP 18; TEMP 36.9; O2SAT 95
[2023-03-14] MEDS: QUEtiapine 100 MG Tablet 150 MG PO (21:28)
[2023-03-15 04:04] VITALS: BP 119/88; PULSE 85; RESP 18; TEMP 36.9; O2SAT 96
[2023-03-15] MEDS: 0.9% Normal Saline 1,000 ML 100 ML IV ×2 (05:57→16:51)
--- NOTE | 2023-03-15 08:28 | PN.SURG_ITS ---
Subjective Subjective Patient still not having any flatus. He is tolerating clear liquids with no nausea or vomiting. He reports feeling like things have moved to the left side of his abdomen. Objective Data Objective Data Vital Signs: Vital Signs Temp Pulse Resp BP Pulse Ox O2 Del Method 98.5 F 85 18 119/88 H 96 Room Air 03/15/23 04:04 03/15/23 04:04 03/15/23 04:04 03/15/23 04:04 03/15/23 04:04 03/15/23 04:04 Oxygen Delivery Method Room Air Weight: 164 lb 0.383 oz Body Mass Index (BMI) 24.5 Intake & Output: Intake and Output for Last 24 Hours 03/13/23 03/14/23 03/15/23 23:59 23:59 23:59 Intake Total 2222.17 / 2222.17 4358.33 / 4358.33 1245 / 1245 Output Total 800 / 800 1600 / 1600 400 / 400 Balance 1422.17 / 1422.17 2758.33 / 2758.33 845 / 845 Lab / Micro Data 03/13/23 04:35 03/13/23 04:35 Physical Exam Const oriented x3 Resp normal respiratory effort GI soft to palpation and non-tender Assessment & Plan Assessment/Plan (1) SBO (small bowel obstruction): PLAN: The patient has postoperative ileus due to lysis of adhesions. I am ordering a KUB today. Awaiting bowel function to advance diet. Patient is currently tolerating clear liquids. Cole Mcnulty MD Pager: [facility] [address] [place] [address], [address] [place] [address] Office:
--- NOTE | 2023-03-15 08:30 | RAD_ITS ---
STUDY: X-RAY - ABDOMEN/PELVIS REASON FOR EXAM: Male, 42 years old. Ileus TECHNIQUE: Single AP view of the abdomen / pelvis. COMPARISON: Comparison is made with prior study dated March 11, 2023. FINDINGS: Increased markings at the lung bases suggestive of bibasilar atelectasis. Persistent dilatation of the small bowel loops in the left mid and lower quadrant abdominal drain is been mild improvement. Gas and fecal material are seen in the colon. Surgical anastomosis in the region of the cecum. The visualized liver, spleen and kidneys are grossly normal in size and morphology. Normal soft tissue structures. Normal visualized osseous structures. RAD/Abdomen Single View (Portable) IMPRESSION: Residual small bowel dilatation in the left upper and lower quadrants although there has been improvement. Gas and fecal material are seen in the colon. Electronically Signed: Abner Gibbons MD at 12:30 EDT ,
[2023-03-15 10:00] VITALS: BP 114/84; PULSE 91; RESP 16; TEMP 37.1; O2SAT 98
[2023-03-15] MEDS: busPIRone 5 MG Tablet 10 MG PO ×2 (11:35→20:21)
[2023-03-15] MEDS: Acetaminophen 650 MG/20 ML UDC PO ×2 (14:20→23:27)
[2023-03-15 16:00] VITALS: BP 124/79; PULSE 93; RESP 16; TEMP 37.1; O2SAT 99
[2023-03-15 20:10] VITALS: BP 120/88; PULSE 92; RESP 16; TEMP 36.7; O2SAT 99
[2023-03-15] MEDS: QUEtiapine 100 MG Tablet 150 MG PO (20:20)
[2023-03-15 23:32] VITALS: PULSE 90
[2023-03-16 02:04] VITALS: BP 125/87; PULSE 90; RESP 20; TEMP 36.9; O2SAT 95
[2023-03-16] MEDS: 0.9% Normal Saline 1,000 ML 100 ML IV ×2 (05:36→21:24)
--- NOTE | 2023-03-16 06:46 | DCINST_ITS ---
Discharge Instructions Diet Discharge Diet: Light diet - advance as tolerated Activity Discharge Activity: May Drive and May Shower Lifting Restrictions: 15 lbs for 4 weeks Dressing / Incision Call your doctor if your incision/area has: Continuous Slow Oozing, Sudden Increased Bleeding, Increased Pain/ Swelling, Increased Redness, Foul Smelling Discharge and Swelling at the incision site Call your doctor if you observe: Fever of 101 or Higher Cleanse incision/area with: Soap & Water Follow Up Care Please Follow Up With: Cole Mcnulty MD When: Call to make 1 week follow up appt [phone] Test Results: Test results from this visit will be discussed in further detail at your follow- up appointment, if applicable. Discharge Plan Admission Admit Date/Time: 03/10/23 09:42 Attending Provider: Cole Mcnulty Primary Care Provider: Chevy Sears Discharge Orders/Prescriptions Prescriptions: No Action buspirone 10 mg tablet 10 mg PO BID Qty: 60 2RF quetiapine 150 mg tablet 150 mg PO QHS Qty: 30 1RF Referrals / Follow Up: Chevy Sears MD [Primary Care Provider] -
[2023-03-16 09:27] VITALS: BP 113/76; PULSE 101; RESP 18; TEMP 36.6; O2SAT 95
[2023-03-16] MEDS: busPIRone 5 MG Tablet 10 MG PO ×2 (09:47→21:28)
--- NOTE | 2023-03-16 11:10 | PCM.PN.SRG ---
Subjective Subjective Patient seen and examined during AM rounds. He is found standing out of bed and remains very enthusiastic about his recovery. He reports tolerance of his breakfast and a bowel movement earlier today. However, he confirms that he is still belching and not regularly passing flatus. He denies any significant abdominal discomfort and reports only mild aching at night which is well controlled with [id number] analgesics. Objective Data Objective Data Vital Signs: Vital Signs Temp Pulse Resp BP Pulse Ox O2 Del Method 98 F 101 H 18 113/76 95 Room Air 03/16/23 09:27 03/16/23 09:27 03/16/23 09:27 03/16/23 09:27 03/16/23 09:27 03/16/23 09:43 Oxygen Delivery Method Room Air Weight: 164 lb 0.383 oz Body Mass Index (BMI) 24.5 Intake & Output: Intake and Output for Last 24 Hours 03/14/23 03/15/23 03/16/23 23:59 23:59 23:59 Intake Total 4358.33 / 4358.33 2805 / 2805 1610 / 1610 Output Total 1600 / 1600 400 / 400 Balance 2758.33 / 2758.33 2405 / 2405 1610 / 1610 Lab / Micro Data 03/13/23 04:35 03/13/23 04:35 Radiography Diagnostic Testing: Radiology Impression KUB X-Ray 03/15/23 08:30 IMPRESSION: Residual small bowel dilatation in the left upper and lower quadrants although there has been improvement. Gas and fecal material are seen in the colon. Electronically Signed: Abner Gibbons MD at 12:30 EDT , Physical Exam Const oriented x3 and no apparent distress Resp normal respiratory effort GI GI Narrative: Mild abdominal distention present, incisions overall well-appearing and remain approximated with radha. There is some slight blanchable erythema along the inferior aspect of patient's infraumbilical laparotomy incision. Patient has minimal tenderness with palpation. Assessment & Plan Assessment/Plan (1) Status post small bowel resection: PLAN: Patient is postoperative day 5 from exploratory laparotomy with resection of prior small bowel anastomosis. Overall he appears to be improving and reports a bowel movement this morning as well as tolerance of a regular diet. Yet, on exam he demonstrates some abdominal distention and denies any regular passage of flatus with frequent belching. With these 3 observations, I remain concerned about lingering postoperative ileus. Would like him to ambulate through today and demonstrate more consistent bowel function before discharge is considered. Further on exam he has some mild erythema at the inferior portion of incision. I have asked him to shower today and will plan to follow-up this area with a reevaluation as well. Charges/Coding Visit Charges Inpatient E&M: 82062 Subs Hosp L2
[2023-03-16 12:00] VITALS: PULSE 97
[2023-03-16] MEDS: Acetaminophen 650 MG/20 ML UDC PO ×2 (13:38→21:29)
[2023-03-16 14:19] VITALS: BP 123/76; PULSE 105; RESP 18; TEMP 37.6; O2SAT 97
--- NOTE | 2023-03-16 16:25 | RAD_ITS ---
STUDY: X-RAY - ABDOMEN/PELVIS REASON FOR EXAM: Male, 42 years old. abdominal pain post op TECHNIQUE: Single AP view of the abdomen / pelvis. COMPARISON: 03/15/2023 FINDINGS: Skin radha in the midline consistent with recent abdominal surgery. There are dilated loops of the small intestine with a non-distended colon consistent with a small bowel obstruction. The visualized liver, spleen and kidneys are grossly normal in size and morphology. Normal soft tissue structures. Normal visualized osseous structures. RAD/Abdomen Single View IMPRESSION: No change and suspected small bowel obstruction. CT may be useful. Electronically Signed: Surinder Guthrie MD at 16:47 EDT ,
[2023-03-16 21:10] VITALS: BP 115/75; PULSE 99; RESP 18; TEMP 37.2; O2SAT 96
[2023-03-16] MEDS: Ondansetron 4 MG/2 ML Vial IV (21:22)
[2023-03-16] MEDS: QUEtiapine 100 MG Tablet 150 MG PO (21:27)
--- NOTE | 2023-03-17 00:55 | EKG12_ITS ---
Test Reason : ARRHYTHMIA Blood Pressure : / mmHG Vent. Rate : 100 BPM Atrial Rate : 100 BPM P-R Int : 150 ms QRS Dur : 106 ms QT Int : 368 ms P-R-T Axes : 029 002 007 degrees QTc Int : 474 ms Normal sinus rhythm Normal ECG When compared with ECG of 12-MAR-2023 13:38, Premature ventricular complexes are no longer Present Confirmed by MARQUEZ GREEN, ASHLEY ([id number]), associate editor BLANK VITALE ([id number]) on 03/19/2023 12:24:45 PM Referred By: DMITRI Confirmed By:ASHLEY ZAYAS MD
[2023-03-17 01:17] VITALS: BP 123/73; PULSE 93; RESP 20; TEMP 36.8; O2SAT 97
[2023-03-17 05:24] VITALS: BP 108/70; PULSE 99; RESP 16; TEMP 36.9; O2SAT 94
[2023-03-17] MEDS: 0.9% Normal Saline 1,000 ML 100 ML IV ×2 (05:28→16:21)
[2023-03-17 06:56] LABS: Absolute Lymphocyte Count 0.89 X10^3/uL (0.83-4.51); Basophil# 0.02 X10^3/uL; Basophil% 0.3 % (0-1); Eosinophil# 0.37 X10^3/uL; Eosinophils% 6.2 % (0-5); Hematocrit 38.4 % (40-54); Hemoglobin 12.9 g/dL (13.0-16.5); Lymphocyte # 0.89 X10^3/ul (0.83-4.51); Lymphocyte % 14.9 % (19-41); Mean Corp Hgb Conc 33.6 g/dL (32-36); Mean Corpuscular Hgb 31.6 pg (27.0-32.0); Mean Corpuscular Volume 94.1 fL (80-94); Mean Platelet Vol. 10.3 fl (6.2-12.0); Monocyte# 0.67 X10^3/uL; Monocyte% 11.2 % (0-10); NRBC Flagged by Analyzer 0 % (0-5); Neutrophil # 4.02 X10^3/uL (2.7-7.7); Neutrophil % 67.2 % (47-70); Platelet Count 175 K/mm3 (150-450); RBC Distribution Width CV 12.3 % (11.6-14.6); RBC Distribution Width SD 42.6 fl (35.1-43.9); Red Blood Count 4.08 M/mm3 (4.6-6.2)
[2023-03-17 07:53] LABS: Anion Gap 6 (5-15); BUN 9 mg/dL (7-18); BUN/Creat Ratio 11.7 RATIO (10-20); Calcium,Total 8.2 mg/dL (8.5-10.1); Chloride 113 mmol/L (98-107); Creatinine, Serum 0.77 mg/dL (0.70-1.30); EST Glomerular Filtration Rate 117 mL/min (>60); Est Glom Filt Rate - Afr Amer 141 mL/min (>60); Estimated Creatinine Clearance 118.44 ml/min; Glucose 83 mg/dL (74-106); Magnesium 1.8 mg/dL (1.6-2.6); Phosphorus 3.1 mg/dL (2.5-4.9); Potassium 3.5 mmol/L (3.5-5.1); Sodium Level 142 mmol/L (136-145)
[2023-03-17] MEDS: busPIRone 5 MG Tablet 10 MG PO ×2 (08:01→22:42)
[2023-03-17 09:30] VITALS: BP 110/77; PULSE 107; RESP 18; TEMP 37; O2SAT 94
--- NOTE | 2023-03-17 09:46 | CT_ITS ---
STUDY: CT ABDOMEN AND PELVIS WITH CONTRAST REASON FOR EXAM: Male, 42 years old. distention and abnormal KUB s/p bowel resection 6 days ago RADIATION DOSAGE (If Supplied By Facility): CTDIvol = ( 12.04 ) mGy, DLP = ( 801.60 ) mGycm TECHNIQUE: Transaxial images were obtained from the dome of the diaphragm to the symphysis pubis without oral contrast. ml of Gastrografin and amp; 100mL Isovue-370 contrast was administered. Sagittal and coronal images were reconstructed. Individualized dose optimization techniques were used for this CT. COMPARISON: CT of abdomen and pelvis dated March 10, 2023 FINDINGS: Interval appearance of skin radha from recent surgical intervention in the midline abdominal region. Some additional mid ileal bowel resection has occurred with more anastomotic suture material seen in the remaining bowel loops in this region in the right mid abdomen. There is persistent small bowel obstruction/moderate fluid distention and air-fluid levels of the small bowel starting in the proximal jejunum and continuing to just proximal to the new surgical anastomotic site were there is zone of transition and narrowing seen on images 73/138 and images 44/121. An encapsulated focus of postoperative serous fluid/ascites is present in the right pelvic sidewall measuring 6.2 x 3.56 cm. No free air is present in the abdomen or pelvis. Mild postoperative stranding is present just beneath the surgical incision site in the anterior aspect of the mid abdomen. The stomach and proximal duodenum are completely filled with fluid and mildly distended. Most of the oral contrast is within the distended stomach and proximal duodenum and jejunum. There is also interval development of small bilateral pleural effusions with moderate bilateral lower lobe atelectasis. The visualized lung bases are unremarkable. The visualized portions of the heart are within normal limits. Normal liver. Normal gallbladder and extrahepatic biliary system. Normal spleen. Normal pancreas. Normal bilateral adrenal glands. Redemonstration of multiple small cysts throughout both kidneys as well as incomplete medial rotation of both kidneys which is developmental finding. Multiple small nonobstructing right kidney stones are present. Mild to moderate right hydronephrosis is unchanged from the prior study. Several surgical clips are seen near the right UPJ. Normal colon. There is non-visualization of the appendix. Normal abdominal aorta. Normal inferior vena cava. Normal retroperitoneum. Normal urinary bladder. Normal abdominal wall. Normal osseous structures. CT/Abdomen/Pelvis WITH Contrast IMPRESSION: Small bowel obstruction with zone of transition described. Postoperative fluid collection of the right pelvic sidewall measuring 6.2 x 3.56 cm is most likely postoperative seroma/ascites rather than an abscess. No air is present within this fluid pocket. 1. Interval appearance of skin radha from recent surgical intervention in the midline abdominal region. Some additional mid ileal bowel resection has occurred with more anastomotic suture material seen in the remaining bowel loops in this region in the right mid abdomen. 2. There is persistent small bowel obstruction/moderate fluid distention and air-fluid levels of the small bowel starting in the proximal jejunum and continuing to just proximal to the new surgical anastomotic site were there is zone of transition and narrowing seen on images 73/138 and images 44/121. 3. An encapsulated focus of postoperative serous fluid/ascites is present in the right pelvic sidewall measuring 6.2 x 3.56 cm. 4. No free air is present in the abdomen or pelvis. 5. Mild postoperative stranding is present just beneath the surgical incision site in the anterior aspect of the mid abdomen. The stomach and proximal duodenum are completely filled with fluid and mildly distended. Most of the oral contrast is within the distended stomach and proximal duodenum and jejunum. Electronically Signed: Brayan Garza MD at 14:16 EDT ,
--- NOTE | 2023-03-17 09:48 | PCM.PN.SRG ---
Subjective Subjective Patient seen and examined during AM rounds. He is found resting in bed. He states that he continues to walk frequently in the halls. He also reports that he had a bowel movement this morning. He denies any pain or nausea this morning, but states that he had both of these last night. He confirms persistent distention this morning. Objective Data Objective Data Vital Signs: Vital Signs Temp Pulse Resp BP Pulse Ox O2 Del Method 98.6 F 107 H 18 110/77 94 Room Air 03/17/23 09:30 03/17/23 09:30 03/17/23 09:30 03/17/23 09:30 03/17/23 09:30 03/17/23 09:30 Oxygen Delivery Method Room Air Weight: 164 lb 0.383 oz Body Mass Index (BMI) 24.5 Intake & Output: Intake and Output for Last 24 Hours 03/15/23 03/16/23 03/17/23 23:59 23:59 23:59 Intake Total 2805 / 2805 2610.00 / 2610.00 916.67 / 916.67 Output Total 400 / 400 Balance 2405 / 2405 2610.00 / 2610.00 916.67 / 916.67 Lab / Micro Data 03/17/23 05:55 03/17/23 05:55 Labs: Laboratory Results - last 24 hr 03/17/23 05:55: WBC 6.0, RBC 4.08 L, Hgb 12.9 L, Hct 38.4 L, MCV 94.1 H, MCH 31.6, MCHC 33.6, RDW Std Deviation 42.6, RDW Coeff of [place] 12.3, Plt Count 175, MPV 10.3, Immature Gran % (Auto) 0.200, Neut % (Auto) 67.2, Lymph % (Auto) 14.9 L, [place] % (Auto) 11.2 H, Eos % (Auto) 6.2 H, Baso % (Auto) 0.3, Absolute Neuts (auto) 4.0, Absolute Lymphs (auto) 0.89, Nucleated RBC % 0, Sodium 142, Potassium 3.5, Chloride 113 H, Carbon Dioxide 23.0, Anion Gap 6, BUN 9, Creatinine 0.77, Estim Creat Clear Calc 118.44, Est GFR (MDRD) Af Amer 141, Est GFR (MDRD) Non-Af 117, BUN/Creatinine Ratio 11.7, Glucose 83, Calcium 8.2 L, Phosphorus 3.1, Magnesium 1.8 Radiography Diagnostic Testing: Radiology Impression KUB X-Ray 03/16/23 16:25 IMPRESSION: No change and suspected small bowel obstruction. CT may be useful. Electronically Signed: Surinder Guthrie MD at 16:47 EDT , Physical Exam Const oriented x3 and no apparent distress Resp normal respiratory effort GI GI Narrative: Diffuse abdominal distention with left greater than right. Mild discomfort with palpation. Well-approximated laparotomy incision without surrounding erythema or drainage. Assessment & Plan Assessment/Plan (1) Status post small bowel resection: PLAN: Patient is postoperative day 6 from exploratory laparotomy with resection of prior small bowel anastomosis. Patient appears to be largely status quo from yesterday with some ongoing bowel function, but also persistent distention. KUB was markedly abnormal yesterday with concern by radiology for a persistent small bowel obstruction. Given patient's reports of ongoing bowel movements, this would be either a partial small bowel obstruction or residual postoperative ileus. Now 6 days out from his operation, I find it warranted to pursue more advanced imaging of this area and have requested CT of the abdomen pelvis with p.o. and IV contrast. Patient was also return to clear liquid diet based on his exam and radiographic findings. Charges/Coding Visit Charges Inpatient E&M: 30014 Subs Hosp L2
[2023-03-17 11:00] VITALS: PULSE 119
[2023-03-17 15:05] VITALS: BP 112/80; PULSE 100; RESP 18; TEMP 37.1; O2SAT 94
[2023-03-17] MEDS: Acetaminophen 650 MG/20 ML UDC PO (18:41)
[2023-03-17 22:39] VITALS: BP 121/77; PULSE 95; RESP 18; TEMP 36.8; O2SAT 93
[2023-03-17] MEDS: QUEtiapine 100 MG Tablet 150 MG PO (22:42)
[2023-03-17] MEDS: 0.9% Saline Lock 10 ML Syringe IV (22:43)
[2023-03-17] MEDS: Ondansetron 4 MG/2 ML Vial IV (23:02)
--- NOTE | 2023-03-17 23:05 | NURSING ---
called into the bathroom. Pt said while he was having a bm. Pt vomited up a large amount of green emsis. Zofran given. Green amterial noted on paper towels in trash can
[2023-03-18 05:01] LABS: Absolute Lymphocyte Count 1.04 X10^3/uL (0.83-4.51); Absolute Neutrophil Count 5.2 X10^3/uL (2.0-7.7); Basophil# 0.03 X10^3/uL; Basophil% 0.4 % (0-1); Eosinophil# 0.38 X10^3/uL; Eosinophils% 5.1 % (0-5); Hematocrit 36.2 % (40-54); Hemoglobin 12.3 g/dL (13.0-16.5); Lymphocyte # 1.04 X10^3/ul (0.83-4.51); Lymphocyte % 13.9 % (19-41); Mean Corpuscular Hgb 31.8 pg (27.0-32.0); Mean Corpuscular Volume 93.5 fL (80-94); Monocyte# 0.84 X10^3/uL; Monocyte% 11.2 % (0-10); NRBC Flagged by Analyzer 0 % (0-5); Neutrophil # 5.18 X10^3/uL (2.7-7.7); Neutrophil % 69.1 % (47-70); Platelet Count 192 K/mm3 (150-450); RBC Distribution Width CV 12.5 % (11.6-14.6); RBC Distribution Width SD 42.6 fl (35.1-43.9); Red Blood Count 3.87 M/mm3 (4.6-6.2); White Blood Count 7.5 K/mm3 (4.4-11.0)
[2023-03-18 05:30] LABS: Anion Gap 6 (5-15); BUN 7 mg/dL (7-18); BUN/Creat Ratio 9.9 RATIO (10-20); Chloride 111 mmol/L (98-107); Creatinine, Serum 0.71 mg/dL (0.70-1.30); EST Glomerular Filtration Rate 129 mL/min (>60); Est Glom Filt Rate - Afr Amer 156 mL/min (>60); Estimated Creatinine Clearance 128.45 ml/min; Glucose 90 mg/dL (74-106); Magnesium 1.9 mg/dL (1.6-2.6); Phosphorus 2.8 mg/dL (2.5-4.9); Potassium 3.5 mmol/L (3.5-5.1); Sodium Level 142 mmol/L (136-145)
[2023-03-18] MEDS: 0.9% Normal Saline 1,000 ML 100 ML IV (05:42)
[2023-03-18 05:44] VITALS: BP 111/76; PULSE 94; RESP 18; TEMP 36.8; O2SAT 93
--- NOTE | 2023-03-18 07:18 | RAD_ITS ---
EXAM: XR ABDOMEN, 1 VIEW CLINICAL INDICATION: ileus TECHNIQUE: Frontal supine view of the abdomen/pelvis. COMPARISON: XR Abdomen dated 03/16/2023 FINDINGS: GASTROINTESTINAL TRACT: Mild improvement in the diffuse distention of the large and small bowel. ORGANS: No organomegaly. BONES/JOINTS: No acute abnormality. RAD/Abdomen Single View (Portable) IMPRESSION: Improving bowel ileus. Electronically Signed: Prudencio Welch MD at 8:32 EDT ,
[2023-03-18 08:21] VITALS: BP 113/67; PULSE 98; RESP 16; TEMP 37; O2SAT 97
[2023-03-18] MEDS: busPIRone 5 MG Tablet 10 MG PO (09:46)
--- NOTE | 2023-03-18 10:36 | PN.SURG_ITS ---
Subjective Subjective Patient reports that he is passing gas and did have a bowel movement. He says that when he threw up last night he was having a lot of phlegm in the back of his throat and thinks he may have gagged and he does have a sensitive gag reflex. He is not complaining of any abdominal pain this morning. Objective Data Objective Data Vital Signs: Vital Signs Temp Pulse Resp BP Pulse Ox O2 Del Method 98.6 F 98 16 113/67 97 Room Air 03/18/23 08:21 03/18/23 08:21 03/18/23 08:21 03/18/23 08:21 03/18/23 08:21 03/18/23 08:23 Oxygen Delivery Method Room Air Weight: 164 lb 0.383 oz Body Mass Index (BMI) 24.5 Intake & Output: Intake and Output for Last 24 Hours 03/16/23 03/17/23 03/18/23 23:59 23:59 23:59 Intake Total 2610.00 / 2610.00 2043.17 / 2043.17 1275 / 1275 Output Total Balance 2610.00 / 2610.00 2043.17 / 2043.17 1274 / 1274 Lab / Micro Data 03/18/23 04:30 03/18/23 04:30 Labs: Laboratory Results - last 24 hr 03/18/23 04:30: WBC 7.5, RBC 3.87 L, Hgb 12.3 L, Hct 36.2 L, MCV 93.5, MCH 31.8, MCHC 34.0, RDW Std Deviation 42.6, RDW Coeff of [place] 12.5, Plt Count 192, MPV 10.0, Immature Gran % (Auto) 0.300, Neut % (Auto) 69.1, Lymph % (Auto) 13.9 L, [place] % (Auto) 11.2 H, Eos % (Auto) 5.1 H, Baso % (Auto) 0.4, Absolute Neuts (auto) 5.2, Absolute Lymphs (auto) 1.04, Nucleated RBC % 0, Sodium 142, Potassium 3.5, Chloride 111 H, Carbon Dioxide 25.0, Anion Gap 6, BUN 7, Crea tinine 0.71, Estim Creat Clear Calc 128.45, Est GFR (MDRD) Af Amer 156, Est GFR (MDRD) Non-Af 129, BUN/Creatinine Ratio 9.9 L, Glucose 90, Calcium 8.0 L, Phosphorus 2.8, Magnesium 1.9 Radiography Diagnostic Testing: Radiology Impression Abdomen/Pelvis CT 03/17/23 09:46 IMPRESSION: Small bowel obstruction with zone of transition described. Postoperative fluid collection of the right pelvic sidewall measuring 6.2 x 3.56 cm is most likely postoperative seroma/ascites rather than an abscess. No air is present within this fluid pocket. 1. Interval appearance of skin radha from recent surgical intervention in the midline abdominal region. Some additional mid ileal bowel resection has occurred with more anastomotic suture material seen in the remaining bowel loops in this region in the right mid abdomen. 2. There is persistent small bowel obstruction/moderate fluid distention and air-fluid levels of the small bowel starting in the proximal jejunum and continuing to just proximal to the new surgical anastomotic site were there is zone of transition and narrowing seen on images 73/138 and images 44/121. 3. An encapsulated focus of postoperative serous fluid/ascites is present in the right pelvic sidewall measuring 6.2 x 3.56 cm. 4. No free air is present in the abdomen or pelvis. 5. Mild postoperative stranding is present just beneath the surgical incision site in the anterior aspect of the mid abdomen. The stomach and proximal duodenum are completely filled with fluid and mildly distended. Most of the oral contrast is within the distended stomach and proximal duodenum and jejunum. Electronically Signed: Brayan Garza MD at 14:16 EDT , KUB X-Ray 03/18/23 07:18 IMPRESSION: Improving bowel ileus. Electronically Signed: Prudencio Welch MD at 8:32 EDT , Physical Exam Const oriented x3 and no apparent distress Resp normal respiratory effort Cardio regular rate and regular rhythm GI soft to palpation and non-tender Inspection: abdominal distention Assessment & Plan Assessment/Plan (1) Status post small bowel resection: PLAN: I reviewed the patient's morning KUB and it shows that all the contrast on the CT scan is in his colon. His small bowel is improved. I will start the patient on full liquids and advance as tolerated. Cole Mcnulty MD Pager: [facility] [address] [place] [address], [address] [place] [address] Office:
--- NOTE | 2023-03-18 14:58 | PCM.DC.SUM ---
Providers Date of Admission: 03/10/23 Primary Care Physician: Dr. Chevy Sears MD Reason For Visit: SMALL BOWEL OBSTRUCTION Diagnosis Discharge Diagnosis (1) Status post small bowel resection: Status: Acute Code(s): Z90.49 - Acquired absence of other specified parts of digestive tract Plan: I reviewed the patient's morning KUB and it shows that all the contrast on the CT scan is in his colon. His small bowel is improved. I will start the patient on full liquids and advance as tolerated. Cole Mcnulty MD Pager: [facility] [address] [place] [address], [address] [place] [address] Office: Medications at Discharge Home Medications buspirone 10 mg tablet 10 mg PO BID #60 tabs 01/22/23 quetiapine 150 mg tablet 150 mg PO QHS #30 tabs 03/06/23 Hospital Course Summary of Care Provided Hospital Course: Patient was admitted with small bowel obstruction. After small bowel follow-through did not go through he was taken for exploratory laparotomy and resection of his prior anastomosis with reanastomosis. After postoperative ileus he finally started passing flatus and bowel movements. He was then discharged home. Weight / BMI Weight Weight: 164 lb 0.383 oz Body Mass Index (BMI) 24.5 ABG / Lab / Microbiology Data 03/18/23 04:30 03/18/23 04:30 Laboratory: Laboratory Results - last 24 hr 03/18/23 04:30: WBC 7.5, RBC 3.87 L, Hgb 12.3 L, Hct 36.2 L, MCV 93.5, MCH 31.8, MCHC 34.0, RDW Std Deviation 42.6, RDW Coeff of [place] 12.5, Plt Count 192, MPV 10.0, Immature Gran % (Auto) 0.300, Neut % (Auto) 69.1, Lymph % (Auto) 13.9 L, [place] % (Auto) 11.2 H, Eos % (Auto) 5.1 H, Baso % (Auto) 0.4, Absolute Neuts (auto) 5.2, Absolute Lymphs (auto) 1.04, Nucleated RBC % 0, Sodium 142, Potassium 3.5, Chloride 111 H, Carbon Dioxide 25.0, Anion Gap 6, BUN 7, Creatinine 0.71, Estim Creat Clear Calc 128.45, Est GFR (MDRD) Af Amer 156, Est GFR (MDRD) Non-Af 129, BUN/Creatinine Ratio 9.9 L, Glucose 90, Calcium 8.0 L, Phosphorus 2.8, Magnesium 1.9 Radiography Diagnostic Testing: Radiology Impression KUB X-Ray 03/18/23 07:18 IMPRESSION: Improving bowel ileus. Electronically Signed: Prudencio Welch MD at 8:32 EDT , D/C Instructions Discharge Diet: Light diet - advance as tolerated Discharge Activity: May Drive and May Shower Lifting Restrictions: 15 lbs for 4 weeks Call your doctor if your incision/area has: Continuous Slow Oozing, Sudden Increased Bleeding, Increased Pain/ Swelling, Increased Redness, Foul Smelling Discharge and Swelling at the incision site Call your doctor if you observe: Fever of 101 or Higher Cleanse incision/area with: Soap & Water Please Follow Up With: Cole Mcnulty MD When: Call to make 1 week follow up appt [phone] Meaningful Use Info Meaningful Use Diagnoses (Choose all that apply): None applicable Discharge Plan Admission Admit Date/Time: 03/10/23 09:42 Attending Provider: Cole Mcnulty Primary Care Provider: Chevy Sears Discharge Orders/Prescriptions Prescriptions: Continued buspirone 10 mg tablet 10 mg PO BID Qty: 60 2RF quetiapine 150 mg tablet 150 mg PO QHS Qty: 30 1RF Referrals / Follow Up: Chevy Sears MD [Primary Care Provider] - Disposition Disposition (needs filled in before D/C Order can be placed): Home, Self Care
[2023-03-18 15:04] VITALS: BP 120/78; PULSE 88; RESP 16; TEMP 36.9; O2SAT 96
== END 2023-03-18 18:04 | disposition home or self-care (01) | DRG 330 ==
LOC: ED 09:47 → MS3 10:59
PROVIDERS: Surgery; Admitting Provider Surgery; Emergency Provider Emergency Medicine; PCP Family Medicine; Visit Provider Surgery
PROC: 0DB80ZZ Excision of Small Intestine, Open Approach (ICD-10-PCS; CPT 44202; principal; 2023-03-11 14:10)
DX: K91.89 Other postprocedural complications and disorders of digestive system (principal); F31.81 Bipolar II disorder; K56.7 Ileus, unspecified; F10.21 Alcohol dependence, in remission; D64.89 Other specified anemias; F17.210 Nicotine dependence, cigarettes, uncomplicated; Z53.31 Laparoscopic surgical procedure converted to open procedure; Z79.899 Other long term (current) drug therapy; Z79.891 Long term (current) use of opiate analgesic; Y83.2 Surgical operation with anastomosis, bypass or graft as the cause of abnormal reaction of the patient, or of later complication, without mention of misadventure at the time of the procedure
CPT/HCPCS: 36415; 74018; 74177; 74250; 80048; 80053; 81001; 83690; 83735; 84100; 84484; 85025; 88304; 88307; 90853; 93005; 99284; 99406; J7030; J7050; J7120; Q9967; A4216; J2405

== ENCOUNTER 2023-03-11 07:13 | Outpatient (RCR) | payer MEDICARE, MEDICAID, SELFPAY | END 2023-03-19 14:40 | disposition home or self-care (01) | LOC: BHOG 07:13 | PROVIDERS: PCP Family Medicine; Referring Provider Psychiatry & Neurology Psychiatry; Visit Provider Psychiatry & Neurology Psychiatry | DX: F31.81 Bipolar II disorder (principal) ==

== ENCOUNTER 2023-04-11 13:58 | Outpatient (RCR) | payer MEDICARE, MEDICAID, SELFPAY | END 2023-04-18 13:57 | disposition home or self-care (01) | LOC: BHOG 13:58 | PROVIDERS: PCP Family Medicine; Referring Provider Psychiatry & Neurology Psychiatry; Visit Provider Psychiatry & Neurology Psychiatry | DX: F31.81 Bipolar II disorder (principal) ==

== ENCOUNTER 2024-06-18 15:18 | Observation (INO) | payer MEDICARE, MEDICAID, SELFPAY ==
[2024-06-18] VITALS (11 sets, daily range): BP systolic 103–128; BP diastolic 71–88; PULSE 88–99; RESP 14–18; TEMP 36.3–37.2; O2SAT 93–98; BMI 28.1
--- NOTE | 2024-06-18 11:23 | PCM.PRE.AN2 ---
ASA Classification* ASA Classification ASA Classification: 2 (see written pre anesthesia record for full assessment) Assessment & Plan Anesthesia* Anesthesia Assessment Anesthesia Assessment: Discussed sedation and/or anesthesia options, risks, benefits, and alternatives with patient/parents/legal guardian/POA. Questions invited. The patient/parents/legal guardian/POA seems to understand and agrees to proceed with anesthesia plan. Reviewed the physical assessment, medical history, allergy history and patient home medications list prior to surgery/procedure/anesthetic and documented any changes. Performed airway and anesthesia risk assessments. Anesthesia Type Anesthesia Type: General (see written pre anesthesia record for full assessment) Anesthesia Focused Assessment* Airway Assessment Mouth opens: >3 cm (see written pre anesthesia record for full assessment) Mallampati Score: III (see written pre anesthesia record for full assessment) Focused Labs Anesthesia Preop lab: CBC WBC 7.5 K/mm3 (4.4-11.0) 03/18/23 04:30 RBC 3.87 M/mm3 (4.6-6.2) L 03/18/23 04:30 Hgb 12.3 g/dL (13.0-16.5) L 03/18/23 04:30 Hct 36.2 % (40-54) L 03/18/23 04:30 Plt Count 192 K/mm3 (150-450) 03/18/23 04:30 CHEMISTRY Potassium 3.5 mmol/L (3.5-5.1) 03/18/23 04:30 Sodium 142 mmol/L (136-145) 03/18/23 04:30 Magnesium 1.9 mg/dL (1.6-2.6) 03/18/23 04:30 Phosphorus 2.8 mg/dL (2.5-4.9) 03/18/23 04:30 BUN 7 mg/dL (7-18) 03/18/23 04:30 Creatinine 0.71 mg/dL (0.70-1.30) 03/18/23 04:30 Glucose 90 mg/dL (74-106) 03/18/23 04:30 POC Glucose 89 mg/dL (70-110) 10/30/16 19:45 COAG Pre-Assessment Diagnosis/Proposed Procedure Planned Operative Procedure(s): Laparoscopic, Ventral Hernia Repair Anesthesia History 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 When Was Last Pacemaker Check QUESTION #4 FULL TEXT: You/Your Family Experience fever (hyperthermia) with Anesthesia Last Oral Intake Last Oral intake: Last Oral Intake NPO since Meds taken in AM with sips of water? Meds patient instructed to take am of surgery PONV PONV - reinsurance accountant: PONV - reinsurance accountant Female No 06/10/24 14:54 HX of Motion Sickness No 06/10/24 14:54 HX of N/V After Surgery No 06/10/24 14:54 Non-Smoker No 06/10/24 14:54 Duration of Surgery greater Yes 06/10/24 14:54 than 60 minutes Number of Risk Factors 1 06/10/24 14:54 PONV Score Low Risk 06/10/24 14:54 Height & Weight Height & Weight: Anesthesia: Height & Weight Height 5 ft 8 in 04/28/24 08:03 Respiratory Assessment Respiratory Assessment - reinsurance accountant: Respiratory Tract Infection Hx - reinsurance accountant Hx Respiratory Tract Infection No 06/10/24 14:54 STOP Sleep Apnea STOP Sleep Apnea - reinsurance accountant: STOP Sleep Apnea - reinsurance accountant Hx Hypertension No 06/10/24 14:54 Hx Sleep Apnea No 06/10/24 14:54 CPAP BIPAP Do you snore loudly (louder No 06/10/24 14:54 than talking or can be heard Do you often feel tired/ No 06/10/24 14:54 fatigued/ sleepy during daytime? Has anyone observed you stop No 06/10/24 14:54 breathing during sleep? STOP Results Negative 06/10/24 14:54 QUESTION #5 FULL TEXT : Do you snore loudly (louder than talking or can be heard through closed doors)? Tobacco Use History Tobacco Use History - reinsurance accountant: Tobacco Use History - reinsurance accountant Tobacco Use Smoking Status Current every day smoker 06/10/24 14:54 Hx Tobacco Use Yes 06/10/24 14:54 Years Smoking Packs Smoked per Day 1 06/10/24 14:54 Smoking Cessation Date was within the last 15 years Hx Smoking Cessation Date Hx Smoking Cessation Counseling Hematologic Medial History Hematologic Hx - reinsurance accountant: Hematologic Medical Hx - senior writer Hx of Blood Transfusion No 06/10/24 14:54 Hx of Transfusion in last 3 No 06/10/24 14:54 Months Date of Last Transfusion (if within last 3 months) Ever experience any problems No 06/10/24 14:54 with transfusion(s)? Specify any problems Hx of Preganancy in last 3 N/A 06/10/24 14:54 Months Nurse Filling Out Transfusion NBUCHER 06/10/24 14:54 & Questions: Date: 06/10/24 06/10/24 14:54 Time: 14:55 06/10/24 14:54 Patient unable to answer at this time (ie. confused, unrespo /Reproduction History /Reproductive History - reinsurance accountant: /Reproductive Hx- reinsurance accountant Hx Now No 06/10/24 14:54 Gestational Age (in weeks): EDC: Hx Hx Para Hx Section SAB No 06/10/24 14:54 Active Medications Active Medications: Current Medications Generic Name Dose Route Start Last Admin Trade Name Freq PRN Reason Stop Dose Admin Cefazolin Sodium 2 gm/ N/A 20 mls @ 400 mls/hr 06/18/24 12:30 IV 06/18/24 12:32 PREOP ONE Lactated Ringer's 1,000 mls @ 15 mls/hr 06/18/24 11:15 IV 06/21/24 05:54 .Q48H [facility] Protocol PFSH Medical History Wears glasses Alcohol use Gastric reflux Smoker Hiatal hernia GERD (gastroesophageal reflux disease) Injury of head and neck Restless legs PTSD (post-traumatic stress disorder) OCD (obsessive compulsive disorder) Alcohol use disorder Bipolar II disorder Migraine Lab test negative for COVID-19 virus Recovering alcoholic Heart murmur History of cleft palate Depression with anxiety Alcohol abuse Home Medications ?Medication ?Instructions ?Recorded ?Last Taken ?Type aripiprazole 5 mg tablet 5 mg PO DAILY #90 tabs 04/28/24 Unknown Rx buspirone 15 mg tablet 15 mg PO BID 06/10/24 Unknown History Allergy/AdvReac Type Severity Reaction Status Date / Time adhesive Allergy Rash Verified 06/10/24 14:52 Opioids - Morphine Analogues AdvReac Other Verified 06/10/24 14:52 Family History Father Alcoholism Mother Alcoholism Cancer lung Grandfather Alcoholism Grandmother Alcoholism Surgical History History of tonsillectomy and adenoidectomy History of kidney surgery History of laparotomy Status post small bowel resection Hx of eye surgery History of repair of congenital cleft palate History of placement of ear tubes History of intestinal surgery Social History Smoking Status: Current every day smoker tobacco type: cigarettes Tobacco: How many years used: 12 alcohol intake: former substance use type: does not use what type of physical activity do you participate in: weight training Review of Systems (Anesthesia) ROS Narrative System reviewed and no additional complaints, except as documented.
[2024-06-18] MEDS: Lactated Ringers 1,000 ML 15 ML IV (11:36)
[2024-06-18] MEDS: Cefazolin 2 GM in Syringe IV (12:55)
--- NOTE | 2024-06-18 13:05 | PCM.HP.BLA ---
History and Physical Date of Admission: 06/18/24 Intake Vital Signs 10/15/2410:29 02/12/2415:34 02/17/2408:29 Height 5 ft 8.5 in 5 ft 8.5 in 5 ft 8 in Weight: 183 lb BMI 27.8 BP 117/73 120/73 Blood Pressure Location Rt brachial Rt brachial Position Sitting Sitting Respiration 17 Pulse 80 94 Pulse Source Monitor Monitor Pulse Oximetry (%) 96 Oxygen Delivery Method room air Intake Visit Reasons: Hernia Chief Complaint: hernia Is patient in pain?: No Allergies adhesive Allergy (Verified 02/17/24 08:31) RashOpioids - Morphine Analogues Adverse Reaction (Verified 02/17/24 08:31) Other Medications ?Medication ?Instructions ?Recorded ?Confirmed ?Type omeprazole 40 mg capsule,delayed See Rx Instructions .Route 07/22/23 02/17/24 Rx release .COMPLEX #60 caps aripiprazole 2 mg tablet 2 mg PO DAILY #30 tabs 02/13/24 02/17/24 Rx PFSH Medical History Hiatal hernia GERD (gastroesophageal reflux disease) Injury of head and neck Restless legs PTSD (post-traumatic stress disorder) OCD (obsessive compulsive disorder) Alcohol use disorder Bipolar II disorder Migraine Lab test negative for COVID-19 virus Recovering alcoholic Heart murmur History of cleft palate Depression with anxiety Alcohol abuse Surgical History Status post small bowel resection Hx of eye surgery History of repair of congenital cleft palate History of placement of ear tubes History of intestinal surgery Family History Father AlcoholismMother Alcoholism Cancer lungGrandfather AlcoholismGrandmother Alcoholism Social History Smoking Status: Current every day smoker tobacco type: cigarettes Tobacco: How many years used: 12 alcohol intake: former substance use type: does not use what type of physical activity do you participate in: weight training HPI HPI HPI: Patient is a 43-year-old male known for me from laparotomy with small bowel resection a year ago. At that time he had a bowel obstruction there were dense adhesions and the prior anastomosis was resected. Currently the patient has a ventral hernia which she reports is growing larger and more painful. He denies nausea or vomiting or fevers or chills. ROS General General: Yes weight change; No appetite, fatigue, colon cancer, breast cancer or weakness HEENT HEENT: No difficulty swallowing, eye injury, eye surgery, swollen glands or hoarseness Endo Endocrine: No thyroid disease, diabetes mellitus, thyroid cancer, Hair loss, heat intolerance or cold intolerance Skin Skin: No rash or changing moles Musc Musculoskeletal: Yes back problems; No arthritis, rheumatoid arthritis, gout or joint pain Cardio Cardiovascular: Yes murmur; No pacemaker, heart disease, atrial fibrillation, high blood pressure, heart attack, heart stent, palpitations, shortness of breat with exertion or chest pain Psych Psychiatric: Yes anxiety; No depression or hearing voices Resp Respiratory: No shortness of breath, No sleep apnea, No cough, No COPD, No asthma, No emphysema and No wheezing Gastro Gastrointestinal: Yes abdominal pain, No nausea or vomiting, No diarrhea, No constipation, No blood in stool, No acid reflux, No hemorrhoids, No ulcers, No gallbladder problem and No black,tarry stools [place] Hematologic: No blood thinners, No blood disorders, No bleeding, No anemia and No blood clots Neuro Neurologic: No system reviewed and no additional complaints, except as documented, No as per HPI, No abnormal gait, No abnormal hearing, No abnormal movements, No abnormal speech, No behavioral changes, No burning sensations, No confusion, No convulsions, No disequilibrium, No dizziness, No localized weakness, No frequent falls, No headache(s), No lack of coordination, No loss of vision, No memory loss, No numbness, No other visual disturbances, No radicular pain, No restless legs, No sensory deficit, No syncope, No tingling, No tremor(s), No weakness and No other Exam Const General: cooperative Orientation: alert and oriented x3 HENMT Head: normal to inspection Neck Neck: normal visual inspection and full ROM Chest Chest palpation & inspection: normal inspection of the chest Resp Effort & Inspection: normal respiratory effort Auscultation: clear to auscultation bilaterally Cardio Rate: regular rate Rhythm: regular rhythm GI Inspection: non-distended Palpation: soft, hernia ventral and nontender Skin General: no rashes or lesions noted Neuro General: patient alert and patient oriented x3 Extrem General: full ROM Psych Appearance: grossly normal Mental Status: mental status grossly normal Assessment and Plan Assessment and Plan (1) Ventral hernia: Status: Acute Qualifiers: Obstruction and gangrene presence: without obstruction or gangrene Qualified Code(s): K43.9 - Ventral hernia without obstruction or gangrene Plan: The patient has recurrent incisional ventral hernia. I discussed attempting laparoscopic repair to place a larger mesh as I believe the patient has Slov[place] cheese defects. I believe he will likely need a large piece of mesh and I think placing this laparoscopically would be optimal. I discussed possibility of having to convert to open or having to repair without mesh if any small bowel is injured. I discussed the procedure and the risks such as bleeding, infection, injury to bowel or need for resection. I discussed mesh placement and contraindications for makes placement if there is any small bowel injury. Patient understands the risks and is willing to proceed. Cole Mcnulty MD Pager: [facility] [address] [place] [address], [address] [place] [address] Office: I have examined the patient and the H&P has been reviewed. There are no clinical changes since date of exam.
[2024-06-18] MEDS: Bupiv/Epi 0.25% 30 ML Vial (14:40)
--- NOTE | 2024-06-18 14:59 | PCM.POST.ANE ---
Anesthesia: Postop Eval I Current Vital Signs Temperature: 97.7 F Pulse Rate: 90 Blood Pressure: 126/82 Respiratory Rate: 16 Pulse Ox: 95 Oxygen Delivery Method: Room Air Assessment Airway patent: Yes Spontaneous unlabored respirations: Yes Mental status: Awake and Calm nausea: No Vomiting: No Anesthesia Complication: No Fluid Hydration Crystalloid volume administer (ml): 400 Total IV fluid infused: 400 Progress Note Anesthesia document: Postop Eval 1 completed: Yes
--- NOTE | 2024-06-18 15:19 | OP.PCM_ITS ---
Report of Operation Date of Procedure: 06/18/24 Pre-Operative Diagnosis: Ventral hernia recurrent over 3 cm Post-Operative Diagnosis: Same Surgery/Procedure Performed:: Laparoscopic hybrid recurrent ventral hernia repair with mesh between 3 and 10 cm Type of Anesthesia: General/Regional Estimated Blood Loss (mL): 20 Description of Procedure: Patient was brought back to the operating room and general anesthesia was induced. The abdomen was prepped and draped in usual sterile fashion. The skin overlying the hernia was incised with a scalpel. Dissection was carried down to the abdomen. Upon entering the abdomen there was adhesions that were very dense amongst all the small bowel to the anterior abdominal wall. Using finger fracture some of these were taken down and the hernia was opened completely. After the hernia was opened completely dissection was carried circumferentially around the hernia to take the small bowel down from the anterior abdominal wall. This was done sharply. Next the hernia was closed from the top and bottom with #1 PDS suture meeting in the middle where a 12 mm port was placed. The abdomen was insufflated 15 mmHg. Under direct visualization and a 5 mm port was placed in the right lateral abdomen and left lateral abdomen. A [address] mesh was placed through the 12 mm port and then the balloon was inflated expanding the mesh. Using secure strap tacker the mesh was tacked in 4 quadrants and then the balloon was removed in its entirety. Next the secure strap tacker was used to circumferentially tack the mesh to the anterior a bdominal wall. Next the ports were removed and the abdomen was allowed to desufflate. All the incisions were injected with local anesthetic and then the port sites were closed with interrupted 4-0 Monocryl sutures in the midline incision was closed with a running 4-0 Monocryl suture. Steri-Strips and bandages were applied. Patient will be admitted due to the extensive nature of his lysis of adhesions and large hernia. Grafts/Implants Used: [address] mesh Admit VTE Documentation VTE Mechan Device Prophylaxis: SCD's
--- NOTE | 2024-06-18 15:24 | POSTOPAN2_ITS ---
Anesthesia Postop Eval I Sum Postop Eval Completion status Anesthesia document: Postop Eval 1 completed: Yes Anesthesia Postop Eval I Summary Anesthesia Postop Eval I Summary: Anesthesia Postop Eval I: Assessment Summary Airway patent Yes 06/18/24 15:00 INSULATION [email or web address].[email or web address] Spontaneous unlabored Yes 06/18/24 15:00 INSULATION HOSEMAN.JUDY respirations Mental status Awake,Calm 06/18/24 15:00 INSULATION [email or web address].JUDY nausea No 06/18/24 15:00 INSULATION HOSEMAN.JUDY Vomiting No 06/18/24 15:00 INSULATION HOSEMAN.JUDY Anesthesia Postop Eval I: Fluid Summary Crystalloid volume administer 400 06/18/24 15:00 INSULATION HOSEMAN.[email or web address] (ml) Colloids volume administered ( ml) Blood Product volume administered (ml) Total IV fluid infused 400 06/18/24 15:00 INSULATION HOSEMAN.JUDY Anesthesia Postop Eval I: Summary Notes Anesthesia Complication No 06/18/24 15:00 INSULATION HOSEMAN.JUDY Anesthesia Complication Comment: Post-operative progress note Anesthesia: Postop Eval II Evaluation Mental status: Awake Pain Level: 0 nausea: No Vomiting: No
--- NOTE | 2024-06-18 15:24 | PCM.POSTANE2 ---
Anesthesia Postop Eval I Sum Postop Eval Completion status Anesthesia document: Postop Eval 1 completed: Yes Anesthesia Postop Eval I Summary Anesthesia Postop Eval I Summary: Anesthesia Postop Eval I: Assessment Summary Airway patent Yes 06/18/24 15:00 SHEET METAL ASSEMBLER AND RIVETER.[email or web address] Spontaneous unlabored Yes 06/18/24 15:00 SHEET METAL ASSEMBLER AND RIVETER.JUDY respirations Mental status Awake,Calm 06/18/24 15:00 SHEET METAL ASSEMBLER AND RIVETER.JUDY nausea No 06/18/24 15:00 SHEET METAL ASSEMBLER AND RIVETER.JUDY Vomiting No 06/18/24 15:00 SHEET METAL ASSEMBLER AND RIVETER.JUDY Anesthesia Postop Eval I: Fluid Summary Crystalloid volume administer 400 06/18/24 15:00 SHEET METAL ASSEMBLER AND RIVETER.SKOBY (ml) Colloids volume administered ( ml) Blood Product volume administered (ml) Total IV fluid infused 400 06/18/24 15:00 SHEET METAL ASSEMBLER AND RIVETER.JUDY Anesthesia Postop Eval I: Summary Notes Anesthesia Complication No 06/18/24 15:00 SHEET METAL ASSEMBLER AND RIVETER.JUDY Anesthesia Complication Comment: Post-operative progress note Anesthesia: Postop Eval II Evaluation Mental status: Awake Pain Level: 0 nausea: No Vomiting: No
--- NOTE | 2024-06-18 15:29 | DCINST_ITS ---
Discharge Instructions Procedure Hernia Diet Discharge Diet: Light diet - advance as tolerated Activity Discharge Activity: May Not Drive (for 2-3 days or while taking narcotic pain meds.) and May Shower (with the bandage in place 1-2 days after surgery.) Lifting Restrictions: 20 pounds for 6 weeks. Additional Activity Instructions:: Climbing stairs is fine, walking is encouraged. Sitting in bed may be uncomfortable. Sitting up using your lateral muscles (sitting up sideways) is usually more comfortable. Do not drive, work heavy equipment of sign legal documents for 24 hours. Pain medications may cause nausea, you should typically eat light foods as you take your pain medications. Pain medications may also cause constipation. If you have difficulty with this, discuss with your doctor. Dressing / Incision Call your doctor if your incision/area has: Continuous Slow Oozing, Sudden Increased Bleeding, Increased Pain/ Swelling, Increased Redness and Foul Smelling Discharge Call your doctor if you observe: Fever of 101 or Higher Suture Line Care: Avoid Pulling/Pushing and Avoid Pinching/Bending Remove Dressing in: 2 days (Remove clear bandages in 2 days, remove Steri-Strips in 7 to 10 days.) Cleanse incision/area with: Soap & Water Follow Up Care Please Follow Up With: Cole Mcnulty MD When: Please call to schedule 2 week follow up appointment. [phone] Test Results: Test results from this visit will be discussed in further detail at your follow- up appointment, if applicable. Discharge Plan Admission Admit Date/Time: 06/18/24 15:18 Attending Provider: Cole Mcnulty Primary Care Provider: Chevy Sears Discharge Orders/Prescriptions Prescriptions: New acetaminophen 325 mg Tablet 650 mg PO Q4H PRN PRN (Reason: Pain 1-10 Or Fever) Qty: 0 0RF oxycodone 5 mg Tablet 5 - 10 mg PO Q4H PRN PRN (Reason: Pain Score 4-10) 3 Days Qty: 10 0RF Continued aripiprazole 5 mg tablet 5 mg PO DAILY Qty: 90 1RF buspirone 15 mg tablet 15 mg PO BID Referrals / Follow Up: Chevy Sears MD [Primary Care Provider] - Disposition Disposition (needs filled in before D/C Order can be placed): Home, Self Care
[2024-06-18] MEDS: Acetaminophen 325 MG Tablet 650 MG PO (20:01)
[2024-06-18] MEDS: oxyCODONE 5 MG Tablet PO (20:01)
[2024-06-18] MEDS: busPIRone 15 MG TABLET PO (20:23)
[2024-06-18] MEDS: 0.9% Saline Lock 10 ML Syringe IV (20:24)
[2024-06-18] MEDS: ARIPiprazole 5 MG Tablet PO (21:53)
[2024-06-19 00:22] VITALS: BP 110/83; PULSE 97; RESP 16; TEMP 37.3; O2SAT 97
[2024-06-19] MEDS: Acetaminophen 325 MG Tablet 650 MG PO ×3 (00:58→15:05)
[2024-06-19 04:22] VITALS: BP 107/80; PULSE 82; RESP 18; TEMP 37; O2SAT 97
[2024-06-19 06:03] VITALS: BP 107/81; PULSE 92; RESP 18; TEMP 36.9; O2SAT 95
[2024-06-19] MEDS: oxyCODONE 5 MG Tablet PO ×2 (06:05→15:05)
[2024-06-19 08:09] VITALS: BP 100/76; PULSE 84; RESP 16; TEMP 37.1; O2SAT 97
[2024-06-19] MEDS: busPIRone 15 MG TABLET PO (10:10)
[2024-06-19 14:27] VITALS: BP 119/73; PULSE 91; RESP 16; TEMP 37.1; O2SAT 95
--- NOTE | 2024-06-19 14:39 | PCM.DC.SUM ---
Providers Date of Admission: 06/18/24 Date of Discharge: 06/19/24 Primary Care Physician: Dr. Chevy Sears MD none Reason For Visit: Laparoscopic, Ventral Hernia Rep Diagnosis Discharge Diagnosis (1) Ventral hernia: Status: Acute Code(s): K43.9 - Ventral hernia without obstruction or gangrene Qualifiers: Obstruction and gangrene presence: without obstruction or gangrene Qualified Code(s): K43.9 - Ventral hernia without obstruction or gangrene Medications at Discharge Home Medications aripiprazole 5 mg tablet 5 mg PO DAILY #90 tabs 04/28/24 buspirone 15 mg tablet 15 mg PO BID 06/10/24 acetaminophen 325 mg tablet 650 mg (2 x 325 mg) PO Q4H PRN PRN Pain 1-10 Or Fever #0 tabs 06/18/24 oxycodone 5 mg tablet 5 - 10 mg (1 - 2 x 5 mg) PO Q4H PRN PRN Pain Score 4-10 3 days #10 tabs 06/18/24 Hospital Course Operations - (Laparoscopic ventral hernia repair) Summary of Care Provided Hospital Course: The patient is a 43-year-old male who recently presented to our office with a ventral hernia. He saw Dr. Arshad and was offered laparoscopic ventral hernia repair surgery. Surgery was performed yesterday. Surgically was successful. There was also lysis of adhesions as well. Patient admitted for pain control yesterday after surgery. He seems much more comfortable. He has not yet passed any flatus but does have bowel sounds. He states he has been up and ambulating. Patient is hopeful to be discharged today. He has been tolerating diet Physical Exam Narrative Abdomen is soft. Mild appropriate tenderness. Mild distention. Dressing clean dry and intact. No signs of erythema or infection. Const alert, oriented x3 and no apparent distress General Appearance: cooperative Weight / BMI Weight Weight: 185 lb 3.013 oz Body Mass Index (BMI) 28.1 D/C Instructions Discharge Diet: Light diet - advance as tolerated Additional Activity Instructions: Climbing stairs is fine, walking is encouraged. Sitting in bed may be uncomfortable. Sitting up using your lateral muscles (sitting up sideways) is usually more comfortable. Do not drive, work heavy equipment of sign legal documents for 24 hours. Pain medications may cause nausea, you should typically eat light foods as you take your pain medications. Pain medications may also cause constipation. If you have difficulty with this, discuss with your doctor. Call your doctor if your incision/area has: Continuous Slow Oozing, Sudden Increased Bleeding, Increased Pain/ Swelling, Increased Redness and Foul Smelling Discharge Call your doctor if you observe: Fever of 101 or Higher Suture Line Care: Avoid Pulling/Pushing and Avoid Pinching/Bending Cleanse incision/area with: Soap & Water Please Follow Up With: Cole Mcnulty MD When: Please call to schedule 2 week follow up appointment. [phone] Meaningful Use Info Meaningful Use Meaningful Use Diagnoses (Choose all that apply): None applicable Ischemic Stroke Statin Dosing Therapy Reference: STATIN DOSE THERAPY REFERENCE: * Patients > 75 years receive moderate or high dose statin therapy. * Patients 75 years or YOUNGER should receive HIGH intensity statin dose unless contraindicated. You will be required to document reason for non-treatment if statin daily dose does not meet guidelines. HIGH DOSE STATIN THERAPY DAILY Atorvastatin > than or = to 40 mg Rosuvastatin > than or = to 20 mg Amlodipine + Atorvastatin > than or = to 2.5/40 mg Ezetimibe + Simvastatin 10/80 mg Simvastatin 80mg Discharge Plan Admission Admit Date/Time: 06/18/24 15:18 Primary Reason for Your Visit: Ventral hernia repair Attending Provider: Cole Mcnulty Primary Care Provider: Chevy Sears Discharge Orders/Prescriptions Prescriptions: New acetaminophen 325 mg Tablet 650 mg PO Q4H PRN PRN (Reason: Pain 1-10 Or Fever) Qty: 0 0RF oxycodone 5 mg Tablet 5 - 10 mg PO Q4H PRN PRN (Reason: Pain Score 4-10) 3 Days Qty: 10 0RF Continued aripiprazole 5 mg tablet 5 mg PO DAILY Qty: 90 1RF buspirone 15 mg tablet 15 mg PO BID Referrals / Follow Up: Chevy Sears MD [Primary Care Provider] - Disposition Disposition (needs filled in before D/C Order can be placed): Home, Self Care Charges/Coding Visit Charges Inpatient E&M: 63291 PROLNG IP/OBS E/M EA 15 MIN
== END 2024-06-19 15:25 | disposition home or self-care (01) ==
LOC: SDC 15:25 → MS3 15:25
PROVIDERS: Admitting Provider Surgery; PCP Family Medicine; Referring Provider Surgery; Visit Provider Surgery
PROC: 0WQF4ZZ Repair Abdominal Wall, Percutaneous Endoscopic Approach (ICD-10-PCS; CPT 49615; principal; 2024-06-18 12:10)
DX: K43.2 Incisional hernia without obstruction or gangrene (principal); F31.81 Bipolar II disorder; F41.8 Other specified anxiety disorders; K21.9 Gastro-esophageal reflux disease without esophagitis; Z79.899 Other long term (current) drug therapy; F17.210 Nicotine dependence, cigarettes, uncomplicated
CPT/HCPCS: 49615; 00832; 99221; 99406; J7120; A4216; G0378; J2405

== ENCOUNTER → 2024-07-28 | Outpatient (CLI) | payer MEDICARE, MEDICAID, SELFPAY ==
[2024-07-28 12:28] LABS: Anion Gap 2 (5-15); BUN 16 mg/dL (7-18); BUN/Creat Ratio 14.7 RATIO (10-20); Chloride 110 mmol/L (98-107); Cholesterol 127 mg/dL (200); Creatinine, Serum 1.09 mg/dL (0.70-1.30); EST Glomerular Filtration Rate 78 mL/min (>60); Est Glom Filt Rate - Afr Amer 94 mL/min (>60); Glucose 103 mg/dL (74-106); High Density Lipoprotein 45 mg/dL; PSA,Total - Annual Screen 0.26 ng/mL (0.00-4.00); Potassium 3.8 mmol/L (3.5-5.1); Sodium Level 138 mmol/L (136-145); Triglycerides 65 mg/dL; Very Low Density Lipoprotein 13 mg/dL (5-40)
== END | disposition home or self-care (01) ==
LOC: MFPLAB 10:03
PROVIDERS: PCP Family Medicine; Visit Provider Family Medicine
DX: Z00.00 Encounter for general adult medical examination without abnormal findings (principal); R35.0 Frequency of micturition; Z12.5 Encounter for screening for malignant neoplasm of prostate
CPT/HCPCS: 36415; 80048; 80061; 84153; G0103